=== PATIENT | male | born 1955 | race Caucasian/White ===

== ENCOUNTER → 2016-10-14 | Outpatient (CLI) | payer OTHER ==
[2016-10-14 09:50] LABS: Blood Urea Nitrogen 23 mg/dL (9-20); Non-African American GFR(MDRD) >60 (>60 ml/min/1.73 sqM)
--- NOTE | 2016-10-14 11:33 | CT ---
EXAMINATION TYPE: CT ChestAbdPelvis w con DATE OF EXAM: 10/14/2016 11:23 AM COMPARISON: NONE HISTORY: Lymphoma CT DLP: 1032.80 mGycm CONTRAST: CT scan of the chest, abdomen and pelvis is performed with Oral Contrast and with IV Contrast, patien t injected with 100 ml mL of Omnipaque 300. CT Chest: LUNGS: The lungs are clear and free of infiltrate or atelectasis. No pulmonary nodule or mass is det ected. No pleural effusion or CT evidence of interstitial lung disease. MEDIASTINUM: Thoracic aorta is of normal caliber. The heart is not enlarged. No evidence for media stinal mass or adenopathy. Stable subcentimeter lymph nodes identified within the mediastinum. HILAR STRUCTURES: No evidence for mass. No hilar adenopathy is appreciated. OTHER: Stable subcentimeter axillary lymph nodes. CONTRAST CT ABDOMEN AND PELVIS FINDINGS: LIVER/GB: No calcified gallstones. Fatty hepatic infiltration is again noted. No space occupying h epatic lesion. Biliary tree is of normal caliber. PANCREAS: No inflammation. No distinct mass. SPLEEN: No splenic enlargement. No lesion seen. ADRENALS: No nodule. No thickening. KIDNEYS/BLADDER: No hydronephrosis. No nephrolithiasis. Stable left renal cyst. Small stable right renal cyst. BOWEL: Normal appendix. Normal bowel caliber. No inflammation. GENITAL ORGANS: No gross abnormality. LYMPH NODES: Multiple small gastrohepatic ligament lymph nodes are noted as well as several small sub centimeter josh hepatis lymph nodes. AORTA: No significant abnormality. OSSEOUS STRUCTURES: Severe degenerative change lumbar spine. OTHER: Multiple peritoneal masses remain stable in overall size morphology and number. No new periton eal masses are identified with certainty. IMPRESSION: 1. Multiple peritoneal masses remain stable in overall size morphology and number. 2. Subcentimeter lymph nodes within the josh hepatis region, small bowel mesentery, gastrohepatic li gament, axillary regions and mediastinum appear unchanged as well. 3. Fatty liver. 4. Severe degenerative change lumbar spine.
== END | disposition home or self-care (01) ==
LOC: RADCTMAIN 08:57
PROVIDERS: ATTEND Internal Medicine Hematology & Oncology
DX: K76.0 Fatty (change of) liver, not elsewhere classified (principal); R19.09 Other intra-abdominal and pelvic swelling, mass and lump; C85.90 Non-Hodgkin lymphoma, unspecified, unspecified site
CPT/HCPCS: 82565; 84520; 71260; 74177; 36415; Q9967

== ENCOUNTER 2018-09-17 06:07 | Inpatient (IN) | payer MEDICARE, BC ==
[2018-09-17] MEDS ORDERED: IBUPROFEN 600 MG TAB PO STA (06:23)
[2018-09-17] MEDS ORDERED: ACETAMINOPHEN TAB 500 MG TAB PO STA (06:23)
[2018-09-17] MEDS: SODIUM CHLORIDE 0.9% 500 ML 500 ML IV SCH ×2 (06:30→07:14)
[2018-09-17] MEDS ORDERED: NALOXONE 0.4 MG/ML 1 ML VIAL IV PRN (06:40)
[2018-09-17] MEDS ORDERED: ONDANSETRON 4 MG/2 ML VIAL IVP PRN (06:52)
[2018-09-17 06:57] LABS: Albumin 4.6 g/dL (3.5-5.0); Basophils % (A) 0 %; Eosinophils % (A) 0 %; HCT 49.9 % (39.0-53.0); HGB 16.4 gm/dL (13.0-17.5); Lymphocytes # (A) 1.6 k/uL (1.0-4.8); Lymphocytes % (A) 16 %; MCH 30.7 pg (25.0-35.0); MCHC 32.9 g/dL (31.0-37.0); MCV 93.3 fL (80.0-100.0); Mean Platelet Volume 8.5; Monocytes # (A) 0.5 k/uL (0-1.0); Monocytes % (A) 5 %; Neutrophils # (A) 7.7 k/uL (1.3-7.7); Neutrophils % (A) 76 %; Platelet Count 204 k/uL (150-450); Potassium 4.7 mmol/L (3.5-5.1); RBC 5.35 m/uL (4.30-5.90); RDW 15.3 % (11.5-15.5); Total Bilirubin 0.6 mg/dL (0.2-1.3); Total Protein 7.6 g/dL (6.3-8.2); WBC 10.2 k/uL (3.8-10.6)
[2018-09-17] MEDS ORDERED: AZITHROMYCIN 500 MG in SODIUM CHLORIDE 0.9% 250 ML IVPB STA (06:59)
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
[2018-09-17 07:00] LABS: Partial Thromboplastin Time 22.7 sec (22.0-30.0)
[2018-09-17 07:11] LABS: Appearance,Urine Clear (Clear); Bilirubin,Urine Negative (Negative); Blood,Urine Negative (Negative); Color,Urine Yellow; Glucose,Urine (UA) Negative (Negative); Ketones,Urine Negative (Negative); Leukocyte Esterase,Urine Negative (Negative); Nitrite,Urine Negative (Negative); PH, Urine 5.5 (5.0-8.0); Protein,Urine Trace (Negative); Specific Gravity,Urine 1.021 (1.001-1.035); Urobilinogen,Urine <2.0 mg/dL (<2.0)
[2018-09-17] MEDS: SODIUM CHLORIDE 0.9% 1,000 ML IV SCH ×2 (07:25→17:22)
--- NOTE | 2018-09-17 08:05 | XR ---
EXAMINATION TYPE: XR chest 2V DATE OF EXAM: 09/17/2018 COMPARISON: 07/12/2013 HISTORY: Cough, fever and dizziness TECHNIQUE: Frontal and lateral views of the chest are obtained. FINDINGS: There is no focal air space opacity, pleural effusion, or pneumothorax seen. The cardiac silhouette size is within normal limits. The osseous structures are intact. [id number] multil evel degenerative disc disease is seen of the thoracic spine. Surgical clips are seen in the left upp er quadrant. IMPRESSION: No acute cardiopulmonary process.
[2018-09-17 09:52] VITALS: BMI 25.8
[2018-09-17] MEDS: FOLIC ACID 1 MG TAB PO SCH (12:34)
[2018-09-17] MEDS: LORATADINE 10 MG TAB PO SCH (12:35)
[2018-09-17] MEDS: CYANOCOBALAMIN 500 MCG TAB PO SCH (12:35)
[2018-09-17] MEDS: PREGABALIN 100 MG CAP PO SCH ×2 (12:35→19:53)
[2018-09-17] MEDS: PANTOPRAZOLE 40 MG TABLET PO SCH (12:35)
[2018-09-17] MEDS: SERTRALINE 100 MG TAB PO SCH (12:37)
[2018-09-17] MEDS ORDERED: MELATONIN 3 MG TABLET PO PRN (16:12)
[2018-09-17] MEDS ORDERED: ALPRAZolam 0.25 MG TAB PO PRN (16:12)
[2018-09-17] MEDS ORDERED: CALCIUM CARBONATE 500 MG CHEWABLE PO PRN (16:12)
[2018-09-17] MEDS ORDERED: LACTULOSE 20 GM/30 ML CUP PO PRN (16:12)
[2018-09-17] MEDS ORDERED: MAGNESIUM HYDROXIDE 2,400 MG/10 ML CUP PO PRN (16:12)
[2018-09-17] MEDS: IPRATROPIUM-ALBUTEROL 3 ML NEB INHALATION SCH ×2 (16:16→20:13)
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
[2018-09-17] MEDS: PIPERACILLIN-TAZOBACTAM 3.375 GM in SODIUM CHLORIDE 0.9% 100 ML IVPB SCH ×2 (17:21→23:14)
[2018-09-17] MEDS: FENOFIBRATE 160 MG TAB PO SCH (17:22)
[2018-09-17] MEDS: ENOXAPARIN 40 MG/0.4 ML SYRINGE SQ SCH (17:28)
[2018-09-17] MEDS: ACETAMINOPHEN TAB 325 MG TAB PO PRN (18:57)
[2018-09-17] MEDS: IBUPROFEN 400 MG TAB PO PRN (19:53)
[2018-09-17] MEDS: ATORVASTATIN 20 MG TAB PO SCH (19:53)
[2018-09-18] MEDS: SODIUM CHLORIDE 0.9% 1,000 ML IV SCH ×2 (02:24→12:21)
[2018-09-18] MEDS: PIPERACILLIN-TAZOBACTAM 3.375 GM in SODIUM CHLORIDE 0.9% 100 ML IVPB SCH ×2 (07:22→15:37)
[2018-09-18] MEDS: PANTOPRAZOLE 40 MG TABLET PO SCH (07:23)
[2018-09-18] MEDS: PREGABALIN 100 MG CAP PO SCH ×2 (08:40→20:32)
[2018-09-18] MEDS: LORATADINE 10 MG TAB PO SCH (08:40)
[2018-09-18] MEDS: ENOXAPARIN 40 MG/0.4 ML SYRINGE SQ SCH (08:40)
[2018-09-18] MEDS: SERTRALINE 100 MG TAB PO SCH (08:40)
[2018-09-18] MEDS: IPRATROPIUM-ALBUTEROL 3 ML NEB INHALATION SCH ×3 (09:39→20:12)
[2018-09-18] MEDS: FOLIC ACID 1 MG TAB PO SCH (11:06)
[2018-09-18] MEDS: MULTIVITAMINS, THERA 1 EACH TAB PO SCH (11:06)
[2018-09-18] MEDS: CHOLECALCIFEROL 1,000 UNIT TAB PO SCH (11:06)
[2018-09-18] MEDS: CYANOCOBALAMIN 500 MCG TAB PO SCH (11:06)
[2018-09-18] MEDS: IBUPROFEN 400 MG TAB PO PRN (14:28)
[2018-09-18] MEDS: FENOFIBRATE 160 MG TAB PO SCH (17:05)
[2018-09-18] MEDS: ACETAMINOPHEN TAB 325 MG TAB PO PRN (17:05)
[2018-09-18] MEDS: ATORVASTATIN 20 MG TAB PO SCH (20:32)
--- NOTE | 2018-09-18 22:55 | PN ---
PROGRESS NOTE DATE OF SERVICE: September 18, 2018. PRESENTING COMPLAINT: Cough. INTERVAL HISTORY: This patient with a few medical issues presented with sepsis with pneumonia. Feels more chirpy today, better. Less congested, less cough. Did tolerate a diet. Did spike a fever this afternoon, though. Family is present including his and son. REVIEW OF SYSTEMS: Done for constitutional, cardiovascular, GI, pulmonary; relevant findings as above. CURRENT MEDICATIONS: Reviewed that include IV Zosyn. EXAMINATION: VITAL SIGNS: T-Max 101, pulse 72, respiration 16, blood pressure 100/64, pulse ox 96 percent room air. GENERAL APPEARANCE: Sitting up, awake. EYES: Pupils equal. Conjunctivae normal. NECK: JVD not raised. Mass not palpable. RESPIRATORY: Effort increased. LUNGS: Improved air entry. CARDIOVASCULAR: First and second sounds normal. No edema. ABDOMEN: Soft, nontender. Liver and spleen not palpable. PSYCHIATRY: Alert and oriented x3. Mood and affect normal. INVESTIGATIONS: No blood work from today. Cultures pending. ASSESSMENT: 1. Pneumonia in a patient with sepsis picture with clinical response. 2. Gastroesophageal reflux disease. 3. Hyperlipidemia. 4. Chronic rheumatoid arthritis. 5. Chronic lymphocytic leukemia. PLAN: Continue with IV Zosyn. I did check with the patient's . He does get the Pneumovax shot and also gets the flu shot. Encouraged to ambulate. MMODL / IJN: [id number] /
[2018-09-19] MEDS: SODIUM CHLORIDE 0.9% 1,000 ML IV SCH ×3 (00:22→20:23)
[2018-09-19] MEDS: PIPERACILLIN-TAZOBACTAM 3.375 GM in SODIUM CHLORIDE 0.9% 100 ML IVPB SCH ×4 (00:22→23:25)
[2018-09-19] MEDS: PANTOPRAZOLE 40 MG TABLET PO SCH (07:18)
[2018-09-19 07:40] LABS: Anisocytosis Slight; Basophils % (A) 0 %; Eosinophils # (A) 0.2 k/uL (0-0.7); Eosinophils % (A) 2 %; HCT 40.6 % (39.0-53.0); Lymphocytes # (A) 2.3 k/uL (1.0-4.8); Lymphocytes % (A) 29 %; MCH 30.3 pg (25.0-35.0); MCHC 32.5 g/dL (31.0-37.0); MCV 93.2 fL (80.0-100.0); Mean Platelet Volume 8.5; Monocytes # (A) 0.5 k/uL (0-1.0); Monocytes % (A) 6 %; Neutrophils # (A) 4.7 k/uL (1.3-7.7); Neutrophils % (A) 60 %; Platelet Count 182 k/uL (150-450); RBC 4.36 m/uL (4.30-5.90); RDW 16.4 % (11.5-15.5)
[2018-09-19 07:48] LABS: HGB 13.2 gm/dL (13.0-17.5)
[2018-09-19 08:11] LABS: Anion Gap 8 mmol/L; Blood Urea Nitrogen 14 mg/dL (9-20); Calcium 8.9 mg/dL (8.4-10.2); Carbon Dioxide 27 mmol/L (22-30); Chloride 107 mmol/L (98-107); Glucose 88 mg/dL (74-99); Sodium 142 mmol/L (137-145)
[2018-09-19] MEDS: IPRATROPIUM-ALBUTEROL 3 ML NEB INHALATION SCH ×3 (08:15→21:16)
[2018-09-19] MEDS: PREGABALIN 100 MG CAP PO SCH ×2 (08:25→20:23)
[2018-09-19] MEDS: LORATADINE 10 MG TAB PO SCH (08:25)
[2018-09-19] MEDS: SERTRALINE 100 MG TAB PO SCH (08:25)
[2018-09-19] MEDS: ENOXAPARIN 40 MG/0.4 ML SYRINGE SQ SCH (08:25)
[2018-09-19] MEDS: MULTIVITAMINS, THERA 1 EACH TAB PO SCH (11:29)
[2018-09-19] MEDS: CHOLECALCIFEROL 1,000 UNIT TAB PO SCH (11:29)
[2018-09-19] MEDS: CYANOCOBALAMIN 500 MCG TAB PO SCH (11:29)
[2018-09-19] MEDS: FOLIC ACID 1 MG TAB PO SCH (11:29)
[2018-09-19] MEDS: FENOFIBRATE 160 MG TAB PO SCH (17:03)
[2018-09-19] MEDS: ATORVASTATIN 20 MG TAB PO SCH (20:23)
[2018-09-19] MEDS: ACETAMINOPHEN TAB 325 MG TAB PO PRN (20:25)
[2018-09-20] MEDS: SODIUM CHLORIDE 0.9% 1,000 ML IV SCH ×2 (03:29→16:20)
--- NOTE | 2018-09-20 04:41 | PN ---
PROGRESS NOTE DATE OF SERVICE: 09/19/2018 PRESENTING COMPLAINT: Tired. INTERVAL HISTORY: This patient presented with pneumonia and sepsis, doing much better, tolerating a diet. Did have a fever yesterday but none today. Has been out of bed. is present. REVIEW OF SYSTEMS: Done for constitutional, cardiovascular, GI, pulmonary; relevant findings as above. CURRENT MEDICATIONS: Reviewed and include IV Zosyn. PHYSICAL EXAMINATION: VITAL SIGNS: On examination, afebrile today. Pulse 69, respiration 16, blood pressure 109/66. Pulse ox 95% on room air. GENERAL APPEARANCE: Sitting up, comfortable. EYES: Pupils equal. Conjunctivae normal. NECK: JVD not raised. Mass not palpable. RESPIRATORY: Effort normal. LUNGS: Fair air entry. CARDIOVASCULAR: First and second sounds normal. No edema. ABDOMEN: Soft, nontender. Liver and spleen not palpable. PSYCHIATRY: Alert and oriented times three. Mood and affect normal. INVESTIGATIONS: White count 18, hemoglobin 13.2. Sputum cultures are pending. ASSESSMENT: 1. Pneumonia in a patient with sepsis picture, suspect gram-negative with good clinical response. Awaiting cultures. 2. Gastroesophageal reflux disease. 3. Hyperlipidemia. 4. Chronic rheumatoid arthritis. 5. Chronic lymphocytic leukemia. 6. Asplenism. PLAN: Care was discussed with the patient and . Await culture results. Hoping patient can be discharged by tomorrow. MMODL / IJN: [id number] /
[2018-09-20] MEDS: IPRATROPIUM-ALBUTEROL 3 ML NEB INHALATION SCH ×2 (07:20→15:54)
[2018-09-20 07:55] LABS: Anion Gap 7 mmol/L; Blood Urea Nitrogen 11 mg/dL (9-20); Calcium 9.6 mg/dL (8.4-10.2); Carbon Dioxide 30 mmol/L (22-30); Chloride 106 mmol/L (98-107); Glucose 95 mg/dL (74-99); Potassium 4.1 mmol/L (3.5-5.1); Sodium 143 mmol/L (137-145)
[2018-09-20] MEDS: PIPERACILLIN-TAZOBACTAM 3.375 GM in SODIUM CHLORIDE 0.9% 100 ML IVPB SCH ×2 (08:37→16:20)
[2018-09-20] MEDS: PREGABALIN 100 MG CAP PO SCH (08:38)
[2018-09-20] MEDS: ENOXAPARIN 40 MG/0.4 ML SYRINGE SQ SCH (08:38)
[2018-09-20] MEDS: PANTOPRAZOLE 40 MG TABLET PO SCH (08:38)
[2018-09-20] MEDS: SERTRALINE 100 MG TAB PO SCH (08:39)
[2018-09-20] MEDS: MULTIVITAMINS, THERA 1 EACH TAB PO SCH (08:39)
[2018-09-20] MEDS: FOLIC ACID 1 MG TAB PO SCH (08:39)
[2018-09-20] MEDS: LORATADINE 10 MG TAB PO SCH (08:39)
[2018-09-20] MEDS: CHOLECALCIFEROL 1,000 UNIT TAB PO SCH (08:39)
[2018-09-20] MEDS: CYANOCOBALAMIN 500 MCG TAB PO SCH (08:39)
[2018-09-20 14:41] VITALS: BP 125/74; PULSE 74; TEMP 98.5
[2018-09-20 15:48] VITALS: RESP 16
[2018-09-20] MEDS: FENOFIBRATE 160 MG TAB PO SCH (16:20)
[2018-09-20] MEDS ORDERED: FLUCONAZOLE 100 MG TAB PO ONE (16:23)
--- NOTE | 2018-09-21 05:32 | DS ---
DISCHARGE SUMMARY DATE OF ADMISSION: 09/17/2018 DATE OF DISCHARGE: 09/20/2018 FINAL DIAGNOSES: 1. Pneumonia with sepsis, suspect gram-negative organism, POA. 2. Gastroesophageal reflux disease. 3. Hyperlipidemia. 4. Chronic rheumatoid arthritis. 5. Chronic lymphocytic leukemia. 6. Asplenism. HOSPITAL COURSE: This patient presented with cough, shortness of breath and sputum. Patient's Gram stain did show some Lisa. The patient responded well to IV Zosyn, switched over to Augmentin and for coverage we will also give some Diflucan. Care was discussed with the patient and . The patient does get all his immunizations including for flu and pneumococcal through his family doctor. On examination, temperature 98.5, pulse 74, respirations 17, blood pressure 125/74, pulse ox 97% on room air. LUNGS: Improved air entry. DISCHARGE MEDICATIONS: 1. Vitamin D3, 2000 units a day. 2. Vitamin B12, 500 mcg a day. 3. Folic acid 1 mg a day. 4. Lopid 600 mg b.i.d. 5. Xyzal 5 mg p.o. daily. 6. Methotrexate 15 mg starting on Thursday. 7. Men's multivitamin 1 tablet p.o. daily. 8. Fish oil 1 capsule p.o. daily. 9. Omeprazole 20 mg p.o. daily. 10.Lyrica 100 mg p.o. b.i.d. 11.Zoloft 100 mg p.o. daily. 12.Zocor 40 mg q.h.s. 13.Turmeric supplement. 14.Augmentin 875 one tablet p.o. q.12, ten tablets. 15.Diflucan 100 mg p.o. daily, 5 tablets. 16.Melatonin 3 mg p.o. q.h.s. p.r.n. Follow up with Dr. Aaron on 09/22/2018. MMODL / IJN: [id number] /
== END 2018-09-20 17:26 | disposition home or self-care (01) | DRG 871 ==
LOC: EC 06:07 → 3NMEDONC 06:40 → 4SSUR 11:42 → 4MS4W 09-20 12:32
PROVIDERS: ADMIT Hospitalist; ATTEND Hospitalist
DX: A41.50 Gram-negative sepsis, unspecified (principal); J15.6 Pneumonia due to other Gram-negative bacteria; C91.10 Chronic lymphocytic leukemia of B-cell type not having achieved remission; B02.9 Zoster without complications; M06.9 Rheumatoid arthritis, unspecified; K21.9 Gastro-esophageal reflux disease without esophagitis; E78.5 Hyperlipidemia, unspecified; Z79.899 Other long term (current) drug therapy; Z90.81 Acquired absence of spleen; Z91.81 History of falling; Z87.891 Personal history of nicotine dependence
CPT/HCPCS: 36415; 71046; 80048; 80053; 81003; 83605; 84484; 85025; 85610; 85730; 87040; 87070; 87086; 87205; 93005; 94640; 94760; 96365; 96367; 99284

== ENCOUNTER → 2018-11-17 | Outpatient (CLI) | payer MEDICARE, BC ==
[2018-11-17 10:50] LABS: African American GFR (CKD) >90 (>60 ml/min/1.73 sqM); Blood Urea Nitrogen 17 mg/dL (9-20)
--- NOTE | 2018-11-17 15:20 | CT ---
EXAMINATION TYPE: CT ChestAbdPelvis w con DATE OF EXAM: 11/17/2018 COMPARISON: 10/14/2016 HISTORY: 63-year-old male lymphoid leukemia, Follow up scan TECHNIQUE: Contiguous axial scanning of the chest, abdomen, and pelvis performed with IV Contrast, pa tient injected with 100 mL of Isovue 300. Delayed images through the kidneys were obtained. Coronal/s agittal reconstructions performed. CT DLP: 1238 mGycm Automated exposure control for dose reduction was used. FINDINGS: CHEST: Heart normal size without pericardial effusion. Coronary vessel calcifications are present. Aorta normal caliber with conventional arch vessel branching anatomy. Borderline enlarged right tracheobronchial angle lymph node measures 1 cm versus 9 mm, previously. Upper right paratracheal lymph node measures 7 mm versus 5 mm, previously. Bilateral axillary lymph nodes. 8 mm right subpectoral lymph node is new. Right axillary lymph node measures up to 1 cm versus 7 mm, previously. Left subpectoral lymph node measures 1.3 cm versus 9 mm, previously. Left axillary lymph nodes measure up to 1.3 cm versus 1.1 cm, previously No consolidation or pleural effusion. ABDOMEN: No focal liver lesion or biliary ductal dilatation. Portal venous system is patent. Gallbladder, adrenal glands, and spleen appear within normal limits. Luna hepatic lymph node measures up to 1.3 cm versus 9 mm, present previously. Aortocaval lymph node measures 1 cm, unchanged. Gastrohepatic ligament lymph node measures 9 mm versus 7 mm, previously Portacaval lymph node measures 2.2 cm versus 1.8 cm, previously. Scattered mesenteric lymph nodes are present, many of which are nonenlarged but others which are mild ly enlarged. On the right, and measures 1.1 cm versus 9 mm, previously. In the mid abdomen, a continu ous cluster measures up to 2.3 x 1.3 cm and has increased in thickness compared to prior exam. On the right common iliac chain, lymph node measures 1.3 cm versus 6 mm, previously. No dilated small bowel, free fluid, or free air. Mild overall stool burden with sigmoid diverticulosis. No pericolonic inflammatory change. There multiple areas of lobulated soft tissue density, greatest in the left upper quadrant measuring up to 5.0 cm. Dominant lobulated soft tissue mass is located along the anterior right paramedian mid abdomen measuring 4.9 cm. Findings suspected to represent osteolytic splenules. Nonobstructive 4 mm right renal calculus. Stable 1.2 cm cyst posterior right kidney. A couple cysts within the left kidney measure up to 3.0 cm . Pelvis: Bladder urine distended. Prostate gland shows hypertrophy of the median lobe impressing into the post erior bladder base. The prostate gland itself measures 4.6 cm wide. No abnormal fluid collection in t he pelvis. Right external iliac chain lymph node measures 1.5 cm versus 1.2 cm, previously. Left external iliac chain lymph node measures 1.0 cm versus 7 mm, previously. Bones: Mild degenerative changes at the hips. Laminectomy changes lower lumbar spine with facet arthropathy and degenerative disc disease throughout the lumbar spine. Grade 1 retrolisthesis at L1-L2, L2-L3, L3 -L4. There is suggestion of a 5.5 x 2.1 x 1.8 cm fluid collection along the laminectomy bed opposite L4 and L5. Endplate spondylosis visualized lower thoracic and lower cervical spine. IMPRESSION: 1. AXILLARY, MEDIASTINAL, UPPER ABDOMINAL , MESENTERIC , RETROPERITONEAL , AND ILIAC CHAIN LYMPH NODE S. THESE LYMPH NODES ARE EITHER NONENLARGED TO BORDERLINE AND MILDLY ENLARGED. THE MAJORITY OF THESE LYMPH NODES SHOW INCREASING SIZE BY UP TO HALF A CENTIMETER. OVERALL SLOW DISEASE PROGRESSION IS SUGG ESTED. 2. MULTIPLE LOBULATED SOFT TISSUE MASSES LOCATED ANTERIORLY IN THE ABDOMEN AND MOST NUMEROUS FOCI IN THE LEFT UPPER QUADRANT. SUSPECT POSTERIOR MEDICAL SPLENULES. 3. MEDIAN LOBE HYPERTROPHY OF THE PROSTATE GLAND. CORRELATE FOR ANY BPH SYMPTOMS. 4. L4-L5 LAMINECTOMY WITH A 5.5 X 2.1 CM FLUID COLLECTION INTERPOSED IN THE LAMINECTOMY BED. POSTOPER ATIVE SEROMA, HEMATOMA, OR OTHER FLUID COLLECTION ARE IN THE DIFFERENTIAL. CLINICALLY CORRELATE.
== END | disposition home or self-care (01) ==
LOC: RADCTMAIN 10:12
PROVIDERS: ATTEND Family Medicine
DX: C91.90 Lymphoid leukemia, unspecified not having achieved remission (principal); N40.0 Benign prostatic hyperplasia without lower urinary tract symptoms; R19.00 Intra-abdominal and pelvic swelling, mass and lump, unspecified site
CPT/HCPCS: 82565; 84520; 71260; 74177; 36415; Q9967

== ENCOUNTER → 2020-06-27 | Outpatient (CLI) | payer MEDICARE, BC ==
--- NOTE | 2020-06-27 14:25 | CT ---
EXAMINATION TYPE: CT angio chest DATE OF EXAM: 06/27/2020 2:11 PM COMPARISON: CT November 17, 2018 HISTORY: elevated d-dimer, episodic difficulty breathing CT DLP: 487 mGycm Automated exposure control for dose reduction was used. CONTRAST: CTA scan of the thorax is performed with IV Contrast, patient injected with 100 mL of Isovue 370, pul monary embolism protocol. MIP images are created and reviewed. FINDINGS: LUNGS: Focal chronic consolidation and/or atelectasis posterior medial right lower lobe adjacent to s purring in the spine. No new suspicious focal consolidation. No pleural effusion or pneumothorax. No concerning nodules or masses. MEDIASTINUM: There is satisfactory enhancement of the pulmonary artery and its branches, there is no CT evidence for pulmonary embolism. Stable slightly enlarged right tracheobronchial 1.4 x 1.2 cm le ft axial image 63. Stable prominent but subcentimeter left axillary lymph nodes. There is enlarging r ight paratracheal 1.8 x 1.3 cm lymph node on axial image 33. There is enlarging 1.9 x 1.4 cm distal r ight tracheal bronchial lymph node axial image 72. No pericardial effusion is seen. OTHER: Surgical clips left upper quadrant was sterilely redemonstrated. Moderate multilevel spurring in the spine again seen. Stable prominent right axillary lymph nodes. IMPRESSION: 1. No CT evidence for acute pulmonary embolism. 2. No acute pulmonary process. 3. Some enlarging thoracic adenopathy noted as detailed above. Recurrent neoplasm or leukemia needs t o be considered. Nonemergent follow-up advised.
== END | disposition home or self-care (01) ==
LOC: RADCTMAIN 13:00
PROVIDERS: ATTEND Nurse Practitioner Family
DX: R59.0 Localized enlarged lymph nodes (principal)
CPT/HCPCS: 71275; Q9967

== ENCOUNTER → 2020-11-16 | Outpatient (CLI) | payer MEDICARE, BC ==
--- NOTE | 2020-11-18 07:10 | PE ---
EXAMINATION TYPE: PET CT fusion skull to thigh DATE OF EXAM: 11/16/2020 COMPARISON: CTA chest June 27, 2020 and older CTs HISTORY: Solitary pulmonary nodule, abnormal CT. TECHNIQUE: Following the intravenous administration of 10.79 mCi of F-18 FDG, whole body images are performed from the skull base to the midthigh. Images are reviewed on the computer in the coronal, a xial, and sagittal planes. Reconstructed rotating images are created on independent workstation and reviewed on the computer. A localization and attenuation correction CT is performed in conjunction with the PET scan. Blood glucose level equals 92. SCAN: Initial Scan FINDINGS: SKULL BASE AND NECK: No suspicious hypermetabolic uptake. CHEST, MEDIASTINUM, AND HILAR REGION: Mild underlying emphysematous change is redemonstrated. Stable chronic consolidation posterior medial right lower lobe adjacent to the spine near axial image 104. N o abnormal hypermetabolic uptake at this level No suspicious hypermetabolic uptake throughout entire thorax. No suspicious greater than 5 mm pulmonary nodules. ABDOMEN AND PELVIS: No suspicious hypermetabolic uptake. Normal excretion identified. OSSEOUS STRUCTURES: No suspicious hypermetabolic uptake. OTHER CT: Prominent bilateral axillary lymph nodes stable from multiple prior studies. Moderate to se kaveh three-vessel coronary artery calcification. Surgical clips left upper quadrant posteriorly redemonstrated. Residual splenosis. Fatty infiltratio n of the visualized liver. Partially exophytic 3.1 cm thin-walled cyst posteriorly upper pole left ki dney. Exophytic 1.5 cm low dense lesion right kidney posteriorly favoring thin-walled cyst. Adjacent 3 mm nonobstructing calculus redemonstrated. Stable anterior 5.4 x 4.1 cm right upper to mid abdominal soft tissue mass image 150 with biopsy clip centrally unchanged from 2015 study is ametabolic. Correlate clinically. Adjacent ventral wall herni a containing fat and tiny mesenteric vessels in the midline. Diverticula throughout the left and sigm oid colon redemonstrated. Enlarged prostate consistent with BPH. Multilevel spurring in the spine. Expansile spinal canal posteriorly lower lumbar spine. Multilevel d isc space narrowing. Prominent anterior spurring in the cervical spine. IMPRESSION: No suspicious hypermetabolic uptake to suggest active malignancy.
== END | disposition home or self-care (01) ==
LOC: RADPETMAIN 07:24
PROVIDERS: ATTEND Internal Medicine Critical Care Medicine
DX: J98.4 Other disorders of lung (principal); K76.0 Fatty (change of) liver, not elsewhere classified; N28.1 Cyst of kidney, acquired; N20.0 Calculus of kidney; K43.9 Ventral hernia without obstruction or gangrene
CPT/HCPCS: 78815; A9552

== ENCOUNTER 2021-02-11 22:12 | Emergency (ER) | payer MEDICARE, BC ==
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
[2021-02-11 22:52] LABS: Basophils # (A) 0.1 k/uL (0-0.2); Basophils % (A) 0 %; Eosinophils # (A) 0.3 k/uL (0-0.7); Eosinophils % (A) 3 %; HCT 45.6 % (39.0-53.0); HGB 15.4 gm/dL (13.0-17.5); Lymphocytes # (A) 3.4 k/uL (1.0-4.8); Lymphocytes % (A) 32 %; MCH 32.6 pg (25.0-35.0); MCHC 33.8 g/dL (31.0-37.0); MCV 96.6 fL (80.0-100.0); Mean Platelet Volume 8.7; Monocytes # (A) 0.8 k/uL (0-1.0); Monocytes % (A) 7 %; Neutrophils # (A) 5.8 k/uL (1.3-7.7); Neutrophils % (A) 54 %; Platelet Count 177 k/uL (150-450); RBC 4.72 m/uL (4.30-5.90); RDW 14.1 % (11.5-15.5); WBC 10.6 k/uL (3.8-10.6)
--- NOTE | 2021-02-11 22:59 | XR ---
EXAMINATION TYPE: XR chest 1V portable DATE OF EXAM: 02/11/2021 COMPARISON: 09/17/2018 HISTORY: Cough and fever pneumonia. TECHNIQUE: Single view FINDINGS: Heart and mediastinum are normal. Lungs are clear of infiltrate. There is no heart failure. There are no hilar masses. Bony thorax is intact. IMPRESSION: No active cardiopulmonary disease. Normal heart. No change.
[2021-02-11 23:06] LABS: INR 0.9 (<1.2); Prothrombin Time 9.8 sec (9.0-12.0)
[2021-02-11 23:17] LABS: ALT 14 U/L (4-49); AST 25 U/L (17-59); African American GFR (CKD) >90 (>60 ml/min/1.73 sqM); Albumin 4.1 g/dL (3.5-5.0); Alkaline Phosphatase 105 U/L (38-126); Anion Gap 9 mmol/L; Blood Urea Nitrogen 15 mg/dL (9-20); Calcium 9.5 mg/dL (8.4-10.2); Carbon Dioxide 24 mmol/L (22-30); Chloride 105 mmol/L (98-107); Glucose 108 mg/dL (74-99); LDH 480 U/L (313-618); Magnesium 1.9 mg/dL (1.6-2.3); Non-African American GFR(CKD) >90 (>60 ml/min/1.73 sqM); Potassium 4.4 mmol/L (3.5-5.1); Sodium 138 mmol/L (137-145); Total Bilirubin 0.5 mg/dL (0.2-1.3)
[2021-02-11] MEDS ORDERED: IBUPROFEN 800 MG TAB PO STA (23:20)
[2021-02-11] MEDS ORDERED: SODIUM CHLORIDE 0.9% 1,000 ML IV ONE (23:20)
[2021-02-12 00:10] LABS: Appearance,Urine Clear (Clear); Bilirubin,Urine Negative (Negative); Blood,Urine Negative (Negative); Color,Urine Yellow; Glucose,Urine (UA) Negative (Negative); Ketones,Urine Negative (Negative); Leukocyte Esterase,Urine Negative (Negative); Nitrite,Urine Negative (Negative); Protein,Urine Negative (Negative); Specific Gravity,Urine 1.032 (1.001-1.035)
[2021-02-12] MEDS ORDERED: cefTRIAXone IN SWFI 1,000 MG/10 ML SYRINGE IVP STA (00:30)
[2021-02-12] MEDS ORDERED: AZITHROMYCIN 500 MG in SODIUM CHLORIDE 0.9% 250 ML IVPB ONE (00:30)
[2021-02-12] MEDS ORDERED: CEPHALEXIN 500 MG CAP PO STA (01:36)
[2021-02-12] MEDS ORDERED: CEPHALEXIN 500MG STARTER PACK 4 CAP BTL PO STA (01:38)
[2021-02-12 02:55] VITALS: BP 107/60; PULSE 63; RESP 16; TEMP 98.8
== END 2021-02-12 02:55 | disposition home or self-care (01) ==
LOC: EC 22:12
DX: R50.9 Fever, unspecified (principal); K21.9 Gastro-esophageal reflux disease without esophagitis; E78.5 Hyperlipidemia, unspecified; M06.9 Rheumatoid arthritis, unspecified; Z20.822 Contact with and (suspected) exposure to COVID-19; Z87.891 Personal history of nicotine dependence; Z90.81 Acquired absence of spleen
CPT/HCPCS: 99284; 96365; 96375; 96361; 36415; 93005; 80053; 82728; 83605; 83615; 83735; 85025; 85610; 85730; 86140; 81003; 87040; 84145; 87635; 71045; J0456; J0696

== ENCOUNTER 2022-01-03 19:45 | Inpatient (IN) | payer MEDICARE, BC ==
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
[2022-01-03] MEDS ORDERED: SODIUM CHLORIDE 0.9% 1,000 ML IV STA (21:24)
--- NOTE | 2022-01-03 21:43 | XR ---
EXAMINATION TYPE: XR chest 2V DATE OF EXAM: 01/03/2022 COMPARISON: NONE HISTORY: Cough and fever TECHNIQUE: 2 view FINDINGS: Heart and mediastinum are normal. Lungs are clear. Diaphragm is normal. Bony thorax appears normal. IMPRESSION: Normal chest.
[2022-01-03 22:26] LABS: HCT 48.4 % (39.0-53.0); HGB 15.6 gm/dL (13.0-17.5); MCH 30.8 pg (25.0-35.0); MCHC 32.3 g/dL (31.0-37.0); MCV 95.5 fL (80.0-100.0); Mean Platelet Volume 8.9; Platelet Count 155 k/uL (150-450); RBC 5.07 m/uL (4.30-5.90); RDW 14.9 % (11.5-15.5); WBC 24.6 k/uL (3.8-10.6)
[2022-01-03 22:38] LABS: Albumin 4.4 g/dL (3.5-5.0); Potassium 4.4 mmol/L (3.5-5.1); Total Bilirubin 0.6 mg/dL (0.2-1.3); Total Protein 7.1 g/dL (6.3-8.2)
[2022-01-03 22:57] LABS: Band Neutrophils % 1 %; Lymphocytes # (M) 13.78 k/uL (1.0-4.8); Monocytes # (M) 1.23 k/uL (0-1.0); Neutrophils % (M) 38 %; Nucleated Red Blood Cells 0 /100 WBC (0-0); Reactive Lymphocytes Present; Total Cells Counted 100
[2022-01-03 23:04] LABS: RBC Morphology Normal
[2022-01-03] MEDS ORDERED: PNEUMONIA PROTOCOL UTILIZED 1 EACH MISC PO PRN (23:16)
[2022-01-03] MEDS ORDERED: SODIUM CHLORIDE 0.9% 1,000 ML IV ONE (23:22)
[2022-01-03] MEDS ORDERED: AZITHROMYCIN 500 MG in SODIUM CHLORIDE 0.9% 250 ML IVPB ONE (23:30)
[2022-01-03] MEDS ORDERED: SODIUM CHLORIDE 0.9% 1,000 ML IV SCH (23:30)
[2022-01-03] MEDS: ACETAMINOPHEN TAB 325 MG TAB PO PRN (23:41)
[2022-01-03] MEDS: HEPARIN SODIUM,PORCINE/PF 5,000 UNIT/0.5 ML SYRINGE SQ SCH (23:42)
[2022-01-04 00:13] LABS: Appearance,Urine Clear (Clear); Bilirubin,Urine Negative (Negative); Blood,Urine Small (Negative); Color,Urine Yellow; Glucose,Urine (UA) Negative (Negative); Ketones,Urine Negative (Negative); Leukocyte Esterase,Urine Negative (Negative); Mucus,Urine Few /hpf; Nitrite,Urine Negative (Negative); Protein,Urine Negative (Negative); RBC,Urine 2 /hpf (0-5); Specific Gravity,Urine 1.023 (1.001-1.035); Squamous Epithelial Cell,Urine <1 /hpf (0-4); Urobilinogen,Urine <2.0 mg/dL (<2.0); WBC,Urine 3 /hpf (0-5)
[2022-01-04] MEDS ORDERED: IPRATROPIUM-ALBUTEROL 3 ML NEB INHALATION STA (02:23)
[2022-01-04] MEDS: SODIUM CHLORIDE 0.9% 1,000 ML IV SCH ×2 (03:40→06:26)
[2022-01-04] MEDS: IPRATROPIUM-ALBUTEROL 3 ML NEB INHALATION PRN ×2 (08:37→11:49)
[2022-01-04] MEDS: ACETAMINOPHEN TAB 325 MG TAB PO PRN (08:59)
[2022-01-04] MEDS: HEPARIN SODIUM,PORCINE/PF 5,000 UNIT/0.5 ML SYRINGE SQ SCH (08:59)
[2022-01-04] MEDS ORDERED: AZITHROMYCIN 500 MG TAB PO SCH (09:00)
[2022-01-04] MEDS ORDERED: ALBUTEROL NEBULIZED 2.5 MG/3 ML INHALATION PRN (09:21)
[2022-01-04] MEDS: FLUTICASONE 50MCG/SPRAY NASAL 16GM EA NOSTRIL SCH (10:45)
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
[2022-01-04] MEDS: PREGABALIN 100 MG CAP PO SCH ×2 (12:19→20:05)
[2022-01-04] MEDS: SERTRALINE 100 MG TAB PO SCH (12:19)
[2022-01-04] MEDS: CIPROFLOXACIN HCL 500 MG TAB PO SCH ×2 (14:27→20:05)
[2022-01-04] MEDS: LACTATED RINGERS 1,000 ML IV SCH ×2 (14:27→20:05)
[2022-01-04] MEDS: metroNIDAZOLE 500 MG TAB PO SCH ×3 (14:27→21:06)
[2022-01-04] MEDS: ENOXAPARIN 40 MG/0.4 ML SYRINGE SQ SCH (15:55)
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
[2022-01-04] MEDS: MAGNESIUM OXIDE 400 MG TAB PO SCH (20:05)
[2022-01-04] MEDS: ATORVASTATIN 20 MG TAB PO SCH (20:05)
[2022-01-04] MEDS: SYMBICORT 160-4.5 MCG INHALER INHALATION SCH (21:03)
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
[2022-01-05] MEDS: LACTATED RINGERS 1,000 ML IV SCH ×3 (05:22→20:26)
[2022-01-05 07:56] LABS: Basophils # (A) 0.1 k/uL (0-0.2); Basophils % (A) 1 %; Eosinophils # (A) 0.2 k/uL (0-0.7); Eosinophils % (A) 1 %; HCT 44.8 % (39.0-53.0); HGB 14.1 gm/dL (13.0-17.5); Lymphocytes # (A) 11.3 k/uL (1.0-4.8); Lymphocytes % (A) 57 %; MCH 30.7 pg (25.0-35.0); MCHC 31.5 g/dL (31.0-37.0); MCV 97.3 fL (80.0-100.0); Monocytes # (A) 0.7 k/uL (0-1.0); Monocytes % (A) 3 %; Neutrophils # (A) 7.2 k/uL (1.3-7.7); Neutrophils % (A) 36 %; Platelet Count 129 k/uL (150-450); RDW 15.1 % (11.5-15.5)
[2022-01-05 08:08] LABS: African American GFR (CKD) >90 (>60 ml/min/1.73 sqM); Anion Gap 5 mmol/L; Blood Urea Nitrogen 11 mg/dL (9-20); Calcium 8.7 mg/dL (8.4-10.2); Carbon Dioxide 25 mmol/L (22-30); Chloride 108 mmol/L (98-107); Glucose 116 mg/dL (74-99); Non-African American GFR(CKD) 89 (>60 ml/min/1.73 sqM); Potassium 3.9 mmol/L (3.5-5.1); Sodium 138 mmol/L (137-145)
[2022-01-05] MEDS: IPRATROPIUM-ALBUTEROL 3 ML NEB INHALATION PRN ×2 (08:17→11:44)
[2022-01-05] MEDS: SYMBICORT 160-4.5 MCG INHALER INHALATION SCH ×2 (08:17→20:44)
[2022-01-05] MEDS: LORATADINE 10 MG TAB PO SCH (08:55)
[2022-01-05] MEDS: metroNIDAZOLE 500 MG TAB PO SCH ×4 (08:55→21:42)
[2022-01-05] MEDS: ENOXAPARIN 40 MG/0.4 ML SYRINGE SQ SCH (08:55)
[2022-01-05] MEDS: PREGABALIN 100 MG CAP PO SCH ×2 (08:56→20:26)
[2022-01-05] MEDS: CIPROFLOXACIN HCL 500 MG TAB PO SCH ×2 (08:56→20:25)
[2022-01-05] MEDS: FOLIC ACID 1 MG TAB PO SCH (08:56)
[2022-01-05] MEDS: SERTRALINE 100 MG TAB PO SCH (08:56)
[2022-01-05] MEDS: PANTOPRAZOLE 40 MG TABLET PO SCH (08:56)
[2022-01-05] MEDS: FLUTICASONE 50MCG/SPRAY NASAL 16GM EA NOSTRIL SCH (08:59)
[2022-01-05 09:12] LABS: RBC Morphology Normal
[2022-01-05] MEDS ORDERED: VANCOMYCIN IV PER PHARMACY 1 EACH MISC MISCELLANE PRN (09:41)
[2022-01-05] MEDS: IOPAMIDOL CONTRAST (ORAL USE) VIAL PO PRN ×2 (10:12→11:01)
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
--- NOTE | 2022-01-05 12:05 | CT ---
EXAMINATION TYPE: CT abdomen pelvis w con CT DLP: 929.80 mGycm, Automated exposure control for dose reduction was used. DATE OF EXAM: 01/05/2022 11:42 AM COMPARISON: PET/CT 11/16/2020 CLINICAL INDICATION:Male, 66 years old with history of bacteremia, diarrhea; Abdominal pain, sepsis TECHNIQUE: Axial CT of the abdomen and pelvis. Sagittal and coronal reformats were created on a [employer] workstation. Contrast used:100 mL of Isovue 300 with IV Contrast, Oral contrast used: with Oral Contrast FINDINGS: LOWER CHEST: Unremarkable ABDOMEN LIVER: Diffusely hypoattenuating parenchyma. GALLBLADDER AND BILE DUCTS: Unremarkable. PANCREAS: Unremarkable. SPLEEN: Soft tissue mass is suspected represent Splenosis throughout the abdomen including the anteri or abdominal wall. Surgical clips in the left upper quadrant are present. ADRENAL GLANDS: Unremarkable. KIDNEYS AND URETERS: No evidence of hydronephrosis. Bilateral renal cysts. Nonobstructing right 4 mm calculus. PELVIS BLADDER: Unremarkable REPRODUCTIVE: Median lobe hypertrophy changes with prominent prostate gland. ABDOMEN & PELVIS STOMACH AND BOWEL: Scattered clonic diverticula are present. No evidence of bowel obstruction. PERITONEUM: No evidence of pneumoperitoneum or free fluid. VASCULATURE: No evidence of aortic aneurysm. MUSCULOSKELETAL: No acute osseous abnormalities. Moderate disc degeneration changes are present throu ghout the thoracolumbar spine. Multilevel disc space narrowing osteophytes and neural foraminal steno sis are present. LYMPH NODES: Scattered lymph nodes are seen in the retroperitoneum which are similar prior on 11/17/19 21. No additional prominent mesenteric lymph nodes are also present and similar prior PET scan. SOFT TISSUE/ABDOMINAL WALL: Subcutaneous gas within the anterior abdomen likely from medicine injecti ons. Ventral wall omental containing hernia measuring 12 mm at the neck. IMPRESSION: 1. No evidence for acute infectious process to explain the patient's bacteremia. 2. Similar retroperitoneal, mesenteric and scattered abdominal soft tissue masses seen dating back to 2013 some of this could represent splenosis. These are not FDG avid on prior PET 11/16/2020. 3. Hepatic steatosis. 4. Prostatomegaly correlate serum PSA.
[2022-01-05] MEDS: VANCOMYCIN 1,500 MG in SODIUM CHLORIDE 0.9% 250 ML IVPB SCH ×2 (14:00→21:42)
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
[2022-01-05] MEDS: ATORVASTATIN 20 MG TAB PO SCH (20:25)
[2022-01-05] MEDS: MAGNESIUM OXIDE 400 MG TAB PO SCH (20:26)
[2022-01-06] MEDS: LACTATED RINGERS 1,000 ML IV SCH ×2 (02:51→14:14)
[2022-01-06 04:44] LABS: Mycoplasma IgG Antibody (EIA) 0.41 INDEX (<=0.90); Mycoplasma IgM Antibody 0.22 INDEX (<=0.90)
[2022-01-06 06:16] LABS: Basophils # (A) 0.1 k/uL (0-0.2); Basophils % (A) 1 %; Eosinophils # (A) 0.3 k/uL (0-0.7); Eosinophils % (A) 2 %; HCT 44.7 % (39.0-53.0); HGB 14.3 gm/dL (13.0-17.5); Lymphocytes % (A) 59 %; MCH 31.5 pg (25.0-35.0); MCHC 32.1 g/dL (31.0-37.0); Macrocytosis Slight; Mean Platelet Volume 8.6; Monocytes # (A) 0.7 k/uL (0-1.0); Monocytes % (A) 4 %; Neutrophils # (A) 5.8 k/uL (1.3-7.7); Neutrophils % (A) 31 %; Platelet Count 149 k/uL (150-450); RBC 4.56 m/uL (4.30-5.90); RDW 15.6 % (11.5-15.5); WBC 18.6 k/uL (3.8-10.6)
[2022-01-06 06:30] LABS: African American GFR (CKD) >90 (>60 ml/min/1.73 sqM); Anion Gap 3 mmol/L; Blood Urea Nitrogen 7 mg/dL (9-20); Calcium 8.7 mg/dL (8.4-10.2); Carbon Dioxide 29 mmol/L (22-30); Chloride 107 mmol/L (98-107); Glucose 106 mg/dL (74-99); Non-African American GFR(CKD) >90 (>60 ml/min/1.73 sqM); Sodium 139 mmol/L (137-145)
[2022-01-06] MEDS: SYMBICORT 160-4.5 MCG INHALER INHALATION SCH ×2 (07:22→21:15)
[2022-01-06] MEDS: FOLIC ACID 1 MG TAB PO SCH (09:38)
[2022-01-06] MEDS: SERTRALINE 100 MG TAB PO SCH (09:38)
[2022-01-06] MEDS: LORATADINE 10 MG TAB PO SCH (09:38)
[2022-01-06] MEDS: PREGABALIN 100 MG CAP PO SCH ×2 (09:38→21:56)
[2022-01-06] MEDS: PANTOPRAZOLE 40 MG TABLET PO SCH (09:38)
[2022-01-06] MEDS: metroNIDAZOLE 500 MG TAB PO SCH ×4 (09:38→21:56)
[2022-01-06] MEDS: ENOXAPARIN 40 MG/0.4 ML SYRINGE SQ SCH (09:39)
[2022-01-06] MEDS: CIPROFLOXACIN HCL 500 MG TAB PO SCH ×2 (09:39→21:56)
[2022-01-06] MEDS: FLUTICASONE 50MCG/SPRAY NASAL 16GM EA NOSTRIL SCH (09:40)
[2022-01-06] MEDS: VANCOMYCIN 1,500 MG in SODIUM CHLORIDE 0.9% 250 ML IVPB SCH ×2 (10:47→22:11)
[2022-01-06 11:54] LABS: Immunoglobulin M 76.8 mg/dL (40.0-280.0)
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
[2022-01-06] MEDS: MAGNESIUM OXIDE 400 MG TAB PO SCH (21:56)
[2022-01-06] MEDS: ATORVASTATIN 20 MG TAB PO SCH (21:56)
[2022-01-07] MEDS: LACTATED RINGERS 1,000 ML IV SCH ×5 (02:05→20:05)
[2022-01-07] MEDS: SYMBICORT 160-4.5 MCG INHALER INHALATION SCH ×2 (07:50→19:27)
[2022-01-07] MEDS ORDERED: metHOTREXate sodium 2.5 MG TAB PO SCH (09:00)
[2022-01-07] MEDS ORDERED: VANCOMYCIN TROUGH DUE 1 EACH MISC MISCELLANE ONE (09:00)
[2022-01-07 09:37] LABS: Basophils # (A) 0.1 k/uL (0-0.2); Basophils % (A) 1 %; Eosinophils # (A) 0.3 k/uL (0-0.7); Eosinophils % (A) 2 %; HCT 45.4 % (39.0-53.0); HGB 14.9 gm/dL (13.0-17.5); Lymphocytes # (A) 11.3 k/uL (1.0-4.8); Lymphocytes % (A) 63 %; MCH 32.1 pg (25.0-35.0); MCHC 32.8 g/dL (31.0-37.0); MCV 97.9 fL (80.0-100.0); Mean Platelet Volume 8.4; Monocytes # (A) 0.6 k/uL (0-1.0); Monocytes % (A) 4 %; Neutrophils % (A) 28 %; Platelet Count 161 k/uL (150-450); RBC 4.64 m/uL (4.30-5.90); RDW 15.4 % (11.5-15.5); WBC 17.9 k/uL (3.8-10.6)
[2022-01-07] MEDS: metroNIDAZOLE 500 MG TAB PO SCH ×4 (10:04→21:05)
[2022-01-07] MEDS: PANTOPRAZOLE 40 MG TABLET PO SCH (10:05)
[2022-01-07] MEDS: PREGABALIN 100 MG CAP PO SCH ×2 (10:05→21:05)
[2022-01-07] MEDS: SERTRALINE 100 MG TAB PO SCH (10:05)
[2022-01-07] MEDS: FOLIC ACID 1 MG TAB PO SCH (10:05)
[2022-01-07] MEDS: CIPROFLOXACIN HCL 500 MG TAB PO SCH ×2 (10:05→21:05)
[2022-01-07] MEDS: FLUTICASONE 50MCG/SPRAY NASAL 16GM EA NOSTRIL SCH (10:05)
[2022-01-07] MEDS: ENOXAPARIN 40 MG/0.4 ML SYRINGE SQ SCH (10:05)
[2022-01-07] MEDS: LORATADINE 10 MG TAB PO SCH (10:05)
[2022-01-07] MEDS: VANCOMYCIN 1,500 MG in SODIUM CHLORIDE 0.9% 250 ML IVPB SCH ×2 (10:06→21:21)
[2022-01-07 10:08] LABS: African American GFR (CKD) >90 (>60 ml/min/1.73 sqM); Anion Gap 10 mmol/L; Blood Urea Nitrogen 7 mg/dL (9-20); Calcium 9.2 mg/dL (8.4-10.2); Carbon Dioxide 26 mmol/L (22-30); Chloride 104 mmol/L (98-107); Glucose 120 mg/dL (74-99); Non-African American GFR(CKD) >90 (>60 ml/min/1.73 sqM); Potassium 3.8 mmol/L (3.5-5.1); Sodium 140 mmol/L (137-145)
[2022-01-07 10:14] LABS: Lymphocytes # (M) 11.64 k/uL (1.0-4.8); Monocytes # (M) 1.79 k/uL (0-1.0); Neutrophils # (M) 4.48 k/uL (1.3-7.7); Neutrophils % (M) 25 %; Nucleated Red Blood Cells 0 /100 WBC (0-0); Polychromasia Present; Total Cells Counted 100
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
[2022-01-07] MEDS: MAGNESIUM OXIDE 400 MG TAB PO SCH (21:05)
[2022-01-07] MEDS: ATORVASTATIN 20 MG TAB PO SCH (21:05)
[2022-01-07] MEDS: ACETAMINOPHEN TAB 325 MG TAB PO PRN (21:19)
[2022-01-08] MEDS: LACTATED RINGERS 1,000 ML IV SCH ×2 (04:53→11:13)
[2022-01-08 06:49] LABS: Basophils # (A) 0.1 k/uL (0-0.2); Basophils % (A) 1 %; Eosinophils # (A) 0.4 k/uL (0-0.7); Eosinophils % (A) 2 %; HGB 13.6 gm/dL (13.0-17.5); Lymphocytes # (A) 11.9 k/uL (1.0-4.8); Lymphocytes % (A) 65 %; MCH 31.1 pg (25.0-35.0); MCHC 32.3 g/dL (31.0-37.0); MCV 96.2 fL (80.0-100.0); Mean Platelet Volume 8.4; Monocytes # (A) 0.7 k/uL (0-1.0); Monocytes % (A) 4 %; Neutrophils # (A) 4.7 k/uL (1.3-7.7); Neutrophils % (A) 25 %; Platelet Count 152 k/uL (150-450); RBC 4.37 m/uL (4.30-5.90); RDW 14.9 % (11.5-15.5); WBC 18.4 k/uL (3.8-10.6)
[2022-01-08] MEDS: SYMBICORT 160-4.5 MCG INHALER INHALATION SCH ×2 (08:17→21:06)
[2022-01-08] MEDS: CIPROFLOXACIN HCL 500 MG TAB PO SCH ×2 (10:14→21:38)
[2022-01-08] MEDS: ENOXAPARIN 40 MG/0.4 ML SYRINGE SQ SCH (10:14)
[2022-01-08] MEDS: metroNIDAZOLE 500 MG TAB PO SCH ×4 (10:14→21:38)
[2022-01-08] MEDS: PREGABALIN 100 MG CAP PO SCH ×2 (10:15→21:38)
[2022-01-08] MEDS: PANTOPRAZOLE 40 MG TABLET PO SCH (10:15)
[2022-01-08] MEDS: SERTRALINE 100 MG TAB PO SCH (10:15)
[2022-01-08] MEDS: FOLIC ACID 1 MG TAB PO SCH (10:15)
[2022-01-08] MEDS: FLUTICASONE 50MCG/SPRAY NASAL 16GM EA NOSTRIL SCH (10:15)
[2022-01-08] MEDS: VANCOMYCIN 1,500 MG in SODIUM CHLORIDE 0.9% 250 ML IVPB SCH ×2 (10:15→21:37)
[2022-01-08] MEDS: LORATADINE 10 MG TAB PO SCH (10:15)
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
[2022-01-08] MEDS: MAGNESIUM OXIDE 400 MG TAB PO SCH (21:38)
[2022-01-08] MEDS: ATORVASTATIN 20 MG TAB PO SCH (21:38)
[2022-01-09 07:18] LABS: African American GFR (CKD) >90 (>60 ml/min/1.73 sqM); Non-African American GFR(CKD) >90 (>60 ml/min/1.73 sqM)
[2022-01-09] MEDS: SYMBICORT 160-4.5 MCG INHALER INHALATION SCH ×2 (08:29→18:59)
[2022-01-09] MEDS: FOLIC ACID 1 MG TAB PO SCH (09:11)
[2022-01-09] MEDS: ENOXAPARIN 40 MG/0.4 ML SYRINGE SQ SCH (09:11)
[2022-01-09] MEDS: SERTRALINE 100 MG TAB PO SCH (09:11)
[2022-01-09] MEDS: PREGABALIN 100 MG CAP PO SCH ×2 (09:11→21:29)
[2022-01-09] MEDS: PANTOPRAZOLE 40 MG TABLET PO SCH (09:11)
[2022-01-09] MEDS: LORATADINE 10 MG TAB PO SCH (09:11)
[2022-01-09] MEDS: VANCOMYCIN 1,500 MG in SODIUM CHLORIDE 0.9% 250 ML IVPB SCH ×2 (09:12→21:29)
[2022-01-09] MEDS: FLUTICASONE 50MCG/SPRAY NASAL 16GM EA NOSTRIL SCH (09:12)
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
[2022-01-09] MEDS: ATORVASTATIN 20 MG TAB PO SCH (21:29)
[2022-01-09] MEDS: MAGNESIUM OXIDE 400 MG TAB PO SCH (21:29)
[2022-01-10 03:27] VITALS: RESP 16
[2022-01-10 06:14] LABS: Basophils # (A) 0.2 k/uL (0-0.2); Basophils % (A) 1 %; Eosinophils # (A) 0.3 k/uL (0-0.7); Eosinophils % (A) 2 %; HCT 47.6 % (39.0-53.0); HGB 14.7 gm/dL (13.0-17.5); Lymphocytes # (A) 12.1 k/uL (1.0-4.8); Lymphocytes % (A) 60 %; MCH 29.8 pg (25.0-35.0); MCHC 30.8 g/dL (31.0-37.0); MCV 96.6 fL (80.0-100.0); Mean Platelet Volume 8.7; Monocytes # (A) 0.8 k/uL (0-1.0); Monocytes % (A) 4 %; Neutrophils # (A) 5.9 k/uL (1.3-7.7); Neutrophils % (A) 29 %; Platelet Count 190 k/uL (150-450); RBC 4.93 m/uL (4.30-5.90); RDW 14.8 % (11.5-15.5); WBC 20.1 k/uL (3.8-10.6)
[2022-01-10] MEDS: SYMBICORT 160-4.5 MCG INHALER INHALATION SCH (08:29)
[2022-01-10] MEDS: PREGABALIN 100 MG CAP PO SCH (08:57)
[2022-01-10] MEDS: FOLIC ACID 1 MG TAB PO SCH (08:57)
[2022-01-10] MEDS: ENOXAPARIN 40 MG/0.4 ML SYRINGE SQ SCH (08:57)
[2022-01-10] MEDS: SERTRALINE 100 MG TAB PO SCH (08:57)
[2022-01-10] MEDS: PANTOPRAZOLE 40 MG TABLET PO SCH (08:57)
[2022-01-10] MEDS: LORATADINE 10 MG TAB PO SCH (08:57)
[2022-01-10] MEDS: FLUTICASONE 50MCG/SPRAY NASAL 16GM EA NOSTRIL SCH (08:59)
[2022-01-10] MEDS: VANCOMYCIN 1,500 MG in SODIUM CHLORIDE 0.9% 250 ML IVPB SCH (09:00)
[2022-01-10 09:41] VITALS: BP 98/64; PULSE 71; TEMP 98.3
[2022-01-10 11:11] VITALS: BMI 25.1
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
== END 2022-01-10 12:30 | disposition home or self-care (01) | DRG 872 ==
LOC: EC 19:45 → 4SSUR 01-04 02:00
PROVIDERS: ADMIT Hospitalist; ATTEND Hospitalist
DX: A41.89 Other specified sepsis (principal); J44.0 Chronic obstructive pulmonary disease with (acute) lower respiratory infection; A04.8 Other specified bacterial intestinal infections; C91.10 Chronic lymphocytic leukemia of B-cell type not having achieved remission; D84.821 Immunodeficiency due to drugs; M06.9 Rheumatoid arthritis, unspecified; F41.9 Anxiety disorder, unspecified; E78.5 Hyperlipidemia, unspecified; K21.9 Gastro-esophageal reflux disease without esophagitis; G62.9 Polyneuropathy, unspecified; F32.A Depression, unspecified; Z20.822 Contact with and (suspected) exposure to COVID-19; Z87.891 Personal history of nicotine dependence; Z79.899 Other long term (current) drug therapy; Z79.51 Long term (current) use of inhaled steroids; Z87.01 Personal history of pneumonia (recurrent); Z90.81 Acquired absence of spleen; Z98.890 Other specified postprocedural states; Z86.19 Personal history of other infectious and parasitic diseases; Z86.010 Personal history of colon polyps; Z82.5 Family history of asthma and other chronic lower respiratory diseases
CPT/HCPCS: 36415; 71046; 74177; 80048; 80053; 80202; 81001; 82565; 82784; 83605; 83630; 84145; 85025; 86140; 86738; 87040; 87045; 87046; 87329; 87493; 87502; 87635; 94640; 94760; 96365; 96366; 96368; 99285

== ENCOUNTER → 2022-05-20 | Outpatient (CLI) | payer MEDICARE, BC ==
[2022-05-20 09:24] LABS: African American GFR (CKD) >90 (>60 ml/min/1.73 sqM); Blood Urea Nitrogen 19 mg/dL (9-20); Non-African American GFR(CKD) 89 (>60 ml/min/1.73 sqM)
--- NOTE | 2022-05-20 11:00 | CT ---
EXAMINATION TYPE: CT abdomen pelvis w con DATE OF EXAM: 05/20/2022 COMPARISON: 01/05/2022 HISTORY: mass CT DLP: 803.5 mGycm CONTRAST: CT scan of the abdomen and pelvis is performed with Oral Contrast and with IV Contrast, patient injec chad with 70 mL of Isovue 300. FINDINGS: LUNG BASES-: No visible nodule. No infiltrate. LIVER/GB: Hepatic steatosis. No calcified gallstones. No space occupying hepatic lesion. Biliary tr ee is of normal caliber. PANCREAS: No inflammation. No distinct mass. SPLEEN: The spleen is not visible however there are multiple masses within the left upper quadrant un changed from prior stress study may reflect multiple splenules or splenosis overall appearance is unc hanged from prior study. ADRENALS: No nodule. No thickening. KIDNEYS/BLADDER: No hydronephrosis. No nephrolithiasis. Stable simple cyst left kidney. Urinary porter dder grossly unremarkable. BOWEL: Normal appendix. Normal bowel caliber. No inflammation. GENITAL ORGANS: Prostate enlargement LYMPH NODES: Stable retroperitoneal lymph nodes. AORTA: No significant abnormality. OSSEOUS STRUCTURES: No significant abnormality is seen. Other: Peritoneal masses remain unchanged IMPRESSION: 1. Stable retroperitoneal, mesenteric intra-abdominal soft tissue masses. 2. Hepatic steatosis. 3. Prostate enlargement. OTHER: No significant additional abnormality is seen. IMPRESSION: 1.
== END | disposition home or self-care (01) ==
LOC: RADCTMAIN 08:30
PROVIDERS: ATTEND Family Medicine
DX: K76.0 Fatty (change of) liver, not elsewhere classified (principal); N40.0 Benign prostatic hyperplasia without lower urinary tract symptoms; R19.00 Intra-abdominal and pelvic swelling, mass and lump, unspecified site
CPT/HCPCS: 82565; 84520; 74177; 36415; Q9967

== ENCOUNTER → 2022-11-14 | Outpatient (CLI) | payer MEDICARE, BC ==
--- NOTE | 2022-11-14 23:10 | PE ---
EXAMINATION TYPE: PET CT fusion skull to thigh DATE OF EXAM: 11/14/2022 CLINICAL INDICATION:Male, 67 years old with history of C91.10 CLL; TECHNIQUE: Following the intravenous administration of 10.1 mCi of F-18 FDG, whole body images are performed from the skull base to the midthigh. Images are reviewed on the computer in the coronal, a xial, and sagittal planes. Reconstructed rotating images are created on independent workstation and reviewed on the computer. A non-contrast CT is performed in conjunction with the PET scan. Glucose level 91 mg/dL COMPARISON: CT 05/20/2022, PET/CT 11/16/2020, FINDINGS: Mediastinal SUV mean is 1.6. Hepatic parenchyma SUV mean is 2.8. SKULL BASE AND NECK: No suspicious radiotracer activity. CHEST, MEDIASTINUM, AND HILAR REGION: * Bilateral axillary lymph nodes that are prominent. On the left Max SUV 2.5, previously 1.7 And on the right max SUV 1.3, previously 1.3. The largest in the right measuring 10 mm in short axis on the right measuring 9 mm in short axis these are stable in size from prior. * Medial right lower lobe consolidation changes where there is a large osteophyte vertebrae is large osteophyte max SUV 3.2 measuring 9 x 41 mm. * Left internal mammary chain lymph nodes measure up to 11 mm Max SUV 1.8. Similar in size to 019. * Right low paratracheal measuring 13 mm in short axis, previously 12 mm, max SUV 2.3 previously 1.3 . * Subcarinal lymph node measuring 13 mm in short axis may be mildly increased in size, previously 11 mm in short axis. Max SUV 1.9 previously 1.0. * Right high paratracheal lymph node measuring 12 mm in short axis, similar to prior 11/16/2020. Max SUV 1.9, previously 1.6.r ABDOMEN AND PELVIS: Scattered soft tissue masses are seen throughout the abdomen, examples include: 8.2 x 6.9 cm mass max SUV 3.1 , previously 5.5 x 3.6 cm. 4.5 x 3.4 cm mass with SUV 3.1, previously 2.7 x 2.2 cm. Mid abdomen slightly right of midline 9.3 x 7.5 cm max SUV 3.8 previously 5.4 x 4.1 cm At least 6 more of these lesions throughout the abdomen. There remains prominent lymph nodes throughout the retroperitoneum. Examples include 14 mm in short a xis josh hepatis lymph node previously 10 mm. Left periaortic lymph node measuring 12 mm which is si milar prior. Lymph node anterior to the superior vena cava level just both kidneys measuring 14 mm Ma x SUV 2.0 previously 12 mm and max SUV 1.2. Left inguinal lymph node measuring 12 mm in short axis is similar prior max SUV 2.3, previously 1.3 OSSEOUS STRUCTURES: No suspicious radiotracer activity. OTHER CT: Prominent bilateral axillary lymph nodes stable from multiple prior studies. Moderate to se kaveh three-vessel coronary artery calcification is unchanged. Surgical clips left upper quadrant posteriorly remain present. Residual splenosis scattered throughou t the upper quadrant. Hepatic steatosis. Bilateral renal cysts. Nonobstructing right renal calculus m easuring 3 mm. Adjacent ventral wall hernia containing fat and tiny mesenteric vessels in the midline. Diverticula t hroughout the left and sigmoid colon redemonstrated. Prostatomegaly. Multilevel spurring in the spine. Expansile spinal canal posteriorly lower lumbar spine. Multilevel d isc space narrowing. Prominent anterior spurring in the cervical spine. IMPRESSION: 1. Scattered lymphadenopathy some of which has mildly increased in size and could represent slow pro gression of disease given timeframe since 11/16/2020. Metabolic activity of these lesions is minimally increased and could be due to technique. 2. Scattered abdominal soft tissue masses. Given history of splenosis this could represent splenosis . This can be confirmed with nuclear medicine sulfur colloid scan. 3. Right medial lower lobe FDG activity near the spine. Favored to represent infectious/inflammatory process. ,
== END | disposition home or self-care (01) ==
LOC: RADPETMAIN 07:02
PROVIDERS: ATTEND Internal Medicine Hematology & Oncology
DX: C91.10 Chronic lymphocytic leukemia of B-cell type not having achieved remission (principal); R91.1 Solitary pulmonary nodule; R59.0 Localized enlarged lymph nodes
CPT/HCPCS: 78815; A9552

== ENCOUNTER → 2022-12-05 | Outpatient (CLI) | payer MEDICARE, BC ==
--- NOTE | 2022-12-05 12:50 | CT ---
EXAMINATION TYPE: CT facial bones wo con DATE OF EXAM: 12/05/2022 COMPARISON: None HISTORY: Chronic sinusitis CT DLP: 622.3 mGycm CONTRAST: 0 mL of Isovue 300 The paranasal sinuses are examined in the axial plane at 2 mm thick sections. Reconstructed images i n the coronal plane were obtained. There is dental amalgam scatter artifact. There is been prior uncinectomies and ethmoidectomies. Ostiomeatal units are widely patent. No suspic ious air-fluid levels are evident. The maxillary sinuses are clear. The ethmoid air cells are clear. The sphenoid sinuses are clear. The frontal sinuses are clear. The septum is evaluated. Minimal septal deviation is evident. IMPRESSIONS: 1. Postsurgical sinus surgery discussed above. 2. No suspicious mucosal thickening present to suggest chronic sinusitis.
== END | disposition home or self-care (01) ==
LOC: RADCTMAIN 11:30
PROVIDERS: ATTEND Family Medicine
DX: J32.9 Chronic sinusitis, unspecified (principal)
CPT/HCPCS: 70486

== ENCOUNTER 2023-01-12 21:20 | Observation (INO) | payer MEDICARE, BC ==
[2023-01-12] MEDS ORDERED: ACETAMINOPHEN TAB 325 MG TAB PO STA (22:33)
--- NOTE | 2023-01-12 23:22 | XR ---
EXAM: XR Chest, 2 Views CLINICAL HISTORY: ITS.REASON XR Reason: Fever TECHNIQUE: Frontal and lateral views of the chest. COMPARISON: No relevant prior studies available. FINDINGS: Lungs: Unremarkable. No consolidation. Pleural space: Unremarkable. No pneumothorax. Heart: Unremarkable. No cardiomegaly. Mediastinum: Unremarkable. Bones/joints: Unremarkable. IMPRESSION: Normal chest x-rays.
[2023-01-12 23:25] LABS: Chloride 102 mmol/L (98-107)
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
[2023-01-12 23:26] LABS: Partial Thromboplastin Time 24.5 sec (22.0-30.0); Prothrombin Time 10.3 sec (9.0-12.0)
[2023-01-12 23:27] LABS: ALT 18 U/L (4-49); AST 27 U/L (17-59); African American GFR (CKD) >90 (>60 ml/min/1.73 sqM); Albumin 3.9 g/dL (3.5-5.0); Alkaline Phosphatase 95 U/L (38-126); Anion Gap 8 mmol/L; Blood Urea Nitrogen 19 mg/dL (9-20); Carbon Dioxide 27 mmol/L (22-30); Glucose 108 mg/dL (74-99); Non-African American GFR(CKD) >90 (>60 ml/min/1.73 sqM); Potassium 3.9 mmol/L (3.5-5.1); Sodium 137 mmol/L (137-145); Total Bilirubin 2.1 mg/dL (0.2-1.3); Total Protein 7.2 g/dL (6.3-8.2)
[2023-01-12] MEDS: LACTATED RINGERS 500 ML IV SCH ×2 (23:31→23:32)
[2023-01-12 23:32] LABS: Anisocytosis Slight; HCT 29.7 % (39.0-53.0); HGB 10.2 gm/dL (13.0-17.5); MCH 29.9 pg (25.0-35.0); MCHC 34.4 g/dL (31.0-37.0); MCV 86.9 fL (80.0-100.0); Platelet Count 76 k/uL (150-450); RBC 3.42 m/uL (4.30-5.90); RDW 16.1 % (11.5-15.5)
[2023-01-12 23:34] LABS: WBC 121.1 k/uL (3.8-10.6)
[2023-01-13 00:45] LABS: Eosinophils # (M) 1.21 k/uL (0-0.7); Lymphocytes # (M) 118.68 k/uL (1.0-4.8); Neutrophils # (M) 1.21 k/uL (1.3-7.7); Neutrophils % (M) 1 %; Nucleated Red Blood Cells 0 /100 WBC (0-0); Total Cells Counted 100
[2023-01-13 00:46] LABS: Anisocytosis (M) Present; Hypochromasia (M) Present; Target Cells Present
[2023-01-13 01:18] LABS: Appearance,Urine Clear (Clear); Bilirubin,Urine Negative (Negative); Blood,Urine Negative (Negative); Color,Urine Light Red; Glucose,Urine (UA) Negative (Negative); Ketones,Urine Negative (Negative); Leukocyte Esterase,Urine Negative (Negative); Nitrite,Urine Negative (Negative); PH, Urine 5.5 (5.0-8.0); Protein,Urine Negative (Negative); Specific Gravity,Urine 1.019 (1.001-1.035); Urobilinogen,Urine <2.0 mg/dL (<2.0)
[2023-01-13] MEDS ORDERED: NALOXONE 0.4 MG/ML 1 ML VIAL IV PRN (01:42)
[2023-01-13] MEDS ORDERED: MAG HYDROX/AL HYDROX/SIMETH 30 ML CUP PO PRN (01:42)
[2023-01-13] MEDS ORDERED: ONDANSETRON 4 MG/2 ML VIAL IVP PRN (01:42)
[2023-01-13] MEDS: SODIUM CHLORIDE 0.9% 1,000 ML IV SCH (08:41)
[2023-01-13] MEDS: ACETAMINOPHEN TAB 325 MG TAB PO PRN (08:43)
[2023-01-13] MEDS: FAMOTIDINE 20 MG TAB PO SCH ×2 (08:43→20:26)
[2023-01-13] MEDS: PREGABALIN 100 MG CAP PO SCH ×2 (15:57→20:26)
[2023-01-13] MEDS: SERTRALINE 100 MG TAB PO SCH (15:58)
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
[2023-01-13 20:10] LABS: % Iron Saturation 87.96 (15.00-50.00)
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
[2023-01-14] MEDS: SODIUM CHLORIDE 0.9% 1,000 ML IV SCH ×3 (01:46→07:56)
[2023-01-14] MEDS ORDERED: ALBUTEROL NEBULIZED 2.5 MG/3 ML INHALATION PRN (02:00)
[2023-01-14] MEDS: ACETAMINOPHEN TAB 325 MG TAB PO PRN (07:55)
[2023-01-14] MEDS: PREGABALIN 100 MG CAP PO SCH (07:56)
[2023-01-14] MEDS: FAMOTIDINE 20 MG TAB PO SCH (07:56)
[2023-01-14] MEDS: SERTRALINE 100 MG TAB PO SCH (07:56)
[2023-01-14] MEDS ORDERED: SYMBICORT 160-4.5 MCG INHALER INHALATION SCH (08:00)
[2023-01-14] MEDS ORDERED: FLUTICASONE 50MCG/SPRAY NASAL 16GM EA NOSTRIL SCH (09:00)
[2023-01-14] MEDS ORDERED: FOLIC ACID 1 MG TAB PO SCH (09:00)
[2023-01-14 09:24] LABS: Blood Urea Nitrogen 15.3 mg/dL (9.0-27.0); Calcium 9.2 mg/dL (8.7-10.3); Carbon Dioxide 27.1 mmol/L (21.6-31.8); Chloride 105 mmol/L (96-109); Glucose 95 mg/dL (70-110); Potassium 4.2 mmol/L (3.5-5.5); Sodium 142 mmol/L (135-145)
[2023-01-14 11:27] LABS: Basophils # (M) 0 X 10*3/uL (0.00-0.10); Blast Cells # (M) 1.45 k/uL (0); Eosinophils # (M) 0 X 10*3/uL (0.04-0.35); HCT 25.2 % (39.6-50.0); HGB 7.8 d/dL (13.0-17.0); Immature Platelet Fraction 13.1 % (1.1-6.1); Lymphocytes # (M) 127.97 X 10*3/uL (0.90-5.00); MCH 27.8 pg (27.0-32.0); MCV 89.7 FL (80.0-97.0); Mean Platelet Volume 12.1 FL (9.5-12.2); Monocytes # (M) 5.82 X 10*3/uL (0.20-1.00); NRBC Per 100 WBC 0.02 X 10*3/uL (0.00-0.01); Neutrophils # (M) 10.18 X 10*3/uL (1.80-7.70); Neutrophils % (M) 7 %; Platelet Count 116 X 10*3/uL (140-440); RBC 2.81 X 10*6/uL (4.40-5.60); RDW 16.7 % (11.5-14.5); WBC 145.42 X 10*3/uL (4.50-10.00)
[2023-01-14 12:39] VITALS: BP 115/60; PULSE 83; RESP 16; TEMP 98.1
[2023-01-14] MEDS ORDERED: MONTELUKAST 10 MG TAB PO SCH (21:00)
[2023-01-15 05:58] LABS: Methylmalonic Acid 0.28 umol/L (<0.40)
--- NOTE | 2023-01-21 16:55 | P.DS ---
Providers Date of admission: 01/13/23 01:45 Expected date of discharge: 01/14/23 Attending physician: Bev Cook Consults: 01/13/23 01:42 Consult Physician Routine Consulting Provider: Viet Cruz Consult Reason/Comments: Leukocytosis Do you want consulting provider notified?: Yes Primary care physician: Jeramy Aaron [facility] Course: Final diagnosis Leukocytosis with WBC 121 Thrombocytopenia Bicytopenia Generalized weakness and fatigue and weight loss and night sweats History of mantle cell lymphoma on close follow-up with oncology Recent COVID-19 infection and flu Hyperlipidemia GERD Rheumatoid arthritis was on methotrexate COPD Prior history of smoking DVT prophylaxis with SCDs due to thrombocytopenia Discharge disposition Patient is being discharged in a stable condition with guarded prognosis to home . Patient will follow-up with Dr. Aaron in the outpatient setting upon discharge. Patient is to follow-up with oncologist as scheduled. Total time taken is greater than 35 minutes. Hospital course This is a 67-year-old male who was recently admitted with elevated white count found to be above 121 along with pancytopenia being closely monitored. Patient had generalized fatigue and weakness has been seen by oncology. Patient follows with oncologist in [place] and has been instructed to follow-up with them on discharge. Patient reports to feeling somewhat improved and would like to go home. Patient has been cleared by oncology for discharge today. Recommend follow-up labs closely in the next few days. Please refer to other consultation notes for further HPI. Currently no reports of chest pain, shortness of breath, or palpitations. Patient is afebrile. No reports of nausea or vomiting and patient is tolerating diet. Patient will be discharged home today. Physical exam: Gen: This is a 67-year-old male who is awake, alert and oriented 3, well- developed, well-nourished HEENT: Head is atraumatic, normocephalic. Pupils equal, round. Sclerae is anicteric. NECK: Supple. No JVD. No lymphadenopathy. No thyromegaly. LUNGS: Clear to auscultation. No wheezes or rhonchi. No intercostal retractions. HEART: Regular rate and rhythm. No murmur. ABDOMEN: Soft. Bowel sounds are present. No masses. No tenderness. EXTREMITIES: No pedal edema. No calf tenderness. NEUROLOGICAL: Patient is awake, alert and oriented x3. Cranial nerves 2 through 12 are grossly intact. Please refer to medication reconciliation sheet for a list of medications. The impression and plan of care has been dictated by Aliya Cuenca, Nurse Practitioner as directed. Dr. Karrie MD I have performed a history and examination and MDM of this patient, discussed the same with the dictator, and agree with the dictator's assessment and plan as written ,documented as a scribe. Based on total visit time, I have performed more than 50% of the visit. Patient Condition at Discharge: Fair Plan - Discharge Summary Discharge Rx Participant: No New Discharge Prescriptions: Continue Sertraline HCl [Zoloft] 100 mg PO DAILY Omeprazole 20 mg PO DAILY Turmeric/Curcumin 500 mg PO DAILY Budesonide/Formoterol Fumarate [Symbicort 160-4.5 Mcg Inhaler] 2 puff INHALATION RT-BID Pregabalin [Lyrica] 200 mg PO BID Acetaminophen Tab [Tylenol] 500 mg PO Q6H PRN PRN Reason: Pain Or Fever > 100.5 Fluticasone Nasal [place] [Flonase Nasal [place]] 1 spray EA NOSTRIL DAILY Folic Acid 1 mg PO DAILY Montelukast [Singulair] 10 mg PO HS Guaifen/Phenyleph/Acetaminophn [Tylenol Sinus Severe Caplet] 1 tab PO Q6HR PRN PRN Reason: Congestion Albuterol Sulfate [Ventolin HFA] 2 puff INHALATION RT-Q6H PRN PRN Reason: Shortness Of Breath Fexofenadine HCl 180 mg PO DAILY [place]-3/Dha/Epa/Fish Oil [Fish Oil 1,000 mg Softgel] 2 cap PO DAILY Multivit,Calc,Min/FA/K1/Lycop [One-A-Day Men's Complete Tab] 1 tab PO DAILY Cholecalciferol [Vitamin D3 (25 Mcg = 1000 Iu)] 50 mcg PO DAILY Discontinued Amoxic-Pot Clav 875-125Mg [Augmentin 875-125] 1 tab PO Q12HR No Action allopurinoL [Zyloprim] 200 mg PO DAILY #60 tab dexAMETHasone [Decadron] 4 mg PO DAILY #90 tablet Discharge Medication List Omeprazole 20 mg PO DAILY 09/17/18 [History] Sertraline HCl [Zoloft] 100 mg PO DAILY 09/17/18 [History] Turmeric/Curcumin 500 mg PO DAILY 09/17/18 [History] Acetaminophen Tab [Tylenol] 500 mg PO Q6H PRN 02/11/21 [History] Albuterol Sulfate [Ventolin HFA] 2 puff INHALATION RT-Q6H PRN 02/11/21 [History] Budesonide/Formoterol Fumarate [Symbicort 160-4.5 Mcg Inhaler] 2 puff INHALATION RT-BID 02/11/21 [History] Fexofenadine HCl 180 mg PO DAILY 02/11/21 [History] Pregabalin [Lyrica] 200 mg PO BID 02/11/21 [History] Fluticasone Nasal [place] [Flonase Nasal [place]] 1 spray EA NOSTRIL DAILY 01/03/22 [History] Folic Acid 1 mg PO DAILY 01/03/22 [History] Multivit,Calc,Min/FA/K1/Lycop [One-A-Day Men's Complete Tab] 1 tab PO DAILY 01/03/22 [History] [place]-3/Dha/Epa/Fish Oil [Fish Oil 1,000 mg Softgel] 2 cap PO DAILY 01/03/22 [History] Cholecalciferol [Vitamin D3 (25 Mcg = 1000 Iu)] 50 mcg PO DAILY 01/13/23 [History] Guaifen/Phenyleph/Acetaminophn [Tylenol Sinus Severe [place]] 1 tab PO Q6HR PRN 01/13/23 [History] Montelukast [Singulair] 10 mg PO HS 01/13/23 [History] allopurinoL [Zyloprim] 200 mg PO DAILY #60 tab 01/20/23 [Rx] dexAMETHasone [Decadron] 4 mg PO DAILY #90 tablet 01/20/23 [Rx] Follow up Appointment(s)/Referral(s): Jeramy Aaron MD [Primary Care Provider] - 01/20/23 11:00 am Ambulatory/Diagnostic Orders: Complete Blood Count w/diff [LAB.AMB] Time Frame: 1 Week, Location: None Select ed Patient Instructions/Handouts: Leukocytosis (DC) Activity/Diet/Wound Care/Special Instructions: Activity Limited until follow-up Follow-up with your primary care provider on discharge Follow-up with your oncologist this week Recommend follow-up labs to monitor hemoglobin in the next week Discharge Disposition: HOME SELF-CARE
== END 2023-01-14 16:11 | disposition home or self-care (01) ==
LOC: EC 21:20 → 5NMEDONC 01-13 01:45
PROVIDERS: ADMIT Hospitalist; ATTEND Hospitalist
DX: D72.829 Elevated white blood cell count, unspecified (principal); D72.820 Lymphocytosis (symptomatic); D69.6 Thrombocytopenia, unspecified; C83.10 Mantle cell lymphoma, unspecified site; K21.9 Gastro-esophageal reflux disease without esophagitis; E78.5 Hyperlipidemia, unspecified; M06.9 Rheumatoid arthritis, unspecified; K63.5 Polyp of colon; R63.4 Abnormal weight loss; R53.83 Other fatigue; J44.9 Chronic obstructive pulmonary disease, unspecified; R61 Generalized hyperhidrosis; R53.1 Weakness; I25.2 Old myocardial infarction; D64.9 Anemia, unspecified; Z79.631 Long term (current) use of antimetabolite agent; Z79.51 Long term (current) use of inhaled steroids; Z79.899 Other long term (current) drug therapy; Z87.01 Personal history of pneumonia (recurrent); Z86.19 Personal history of other infectious and parasitic diseases; Z90.81 Acquired absence of spleen; Z85.6 Personal history of leukemia; Z86.16 Personal history of COVID-19; Z87.891 Personal history of nicotine dependence; Z98.890 Other specified postprocedural states; Z82.5 Family history of asthma and other chronic lower respiratory diseases
CPT/HCPCS: 96365; 99284; 36415; 94640 ×2; 93005; 83921; 80053; 80048; 82607; 82728; 82525; 82746; 83540; 83550; 83605; 84484; 85025 ×2; 85610; 85730; 81003; 87040; 71046; G0378 ×2; J0696

== ENCOUNTER 2023-01-18 09:46 | Inpatient (IN) | payer MEDICARE, BC ==
[2023-01-18] MEDS ORDERED: SODIUM CHLORIDE 0.9% 500 ML 500 ML IV STA (10:07)
[2023-01-18] MEDS ORDERED: PANTOPRAZOLE 40 MG/10 ML VIAL IVP STA (10:07)
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
[2023-01-18 10:37] LABS: Anisocytosis Slight; MCH 30.5 pg (25.0-35.0); MCHC 35.5 g/dL (31.0-37.0); MCV 85.9 fL (80.0-100.0); Mean Platelet Volume 9.8; Platelet Count 145 k/uL (150-450); RBC 1.56 m/uL (4.30-5.90); RDW 16.4 % (11.5-15.5)
[2023-01-18 10:39] LABS: Partial Thromboplastin Time 26.1 sec (22.0-30.0); Prothrombin Time 10.4 sec (9.0-12.0)
[2023-01-18 10:39] LABS: ALT 16 U/L (4-49); AST 30 U/L (17-59); African American GFR (CKD) >90 (>60 ml/min/1.73 sqM); Albumin 3.7 g/dL (3.5-5.0); Alkaline Phosphatase 91 U/L (38-126); Anion Gap 7 mmol/L; Blood Urea Nitrogen 17 mg/dL (9-20); Calcium 8.7 mg/dL (8.4-10.2); Carbon Dioxide 27 mmol/L (22-30); Chloride 104 mmol/L (98-107); Glucose 112 mg/dL (74-99); Magnesium 1.9 mg/dL (1.6-2.3); Non-African American GFR(CKD) >90 (>60 ml/min/1.73 sqM); Potassium 4.2 mmol/L (3.5-5.1); Sodium 138 mmol/L (137-145); Total Bilirubin 2.6 mg/dL (0.2-1.3); Total Protein 6.9 g/dL (6.3-8.2)
[2023-01-18 10:42] LABS: HCT 13.4 % (39.0-53.0); HGB 4.7 gm/dL (13.0-17.5); WBC 164.6 k/uL (3.8-10.6)
[2023-01-18 11:16] LABS: Eosinophils # (M) 1.65 k/uL (0-0.7); Monocytes # (M) 4.94 k/uL (0-1.0); Neutrophils # (M) 14.81 k/uL (1.3-7.7); Neutrophils % (M) 9 %
[2023-01-18 11:17] LABS: Blast Cells # (M) 1.65 k/uL (0); Nucleated Red Blood Cells 0 /100 WBC (0-0); Total Cells Counted 200
[2023-01-18 12:01] LABS: Appearance,Urine Clear (Clear); Bilirubin,Urine Negative (Negative); Blood,Urine Negative (Negative); Glucose,Urine (UA) Negative (Negative); Ketones,Urine Negative (Negative); Leukocyte Esterase,Urine Negative (Negative); Nitrite,Urine Negative (Negative); PH, Urine 7.5 (5.0-8.0); Protein,Urine Negative (Negative); Specific Gravity,Urine 1.014 (1.001-1.035); Urobilinogen,Urine <2.0 mg/dL (<2.0)
[2023-01-18 12:08] LABS: Color,Urine Yellow
[2023-01-18] MEDS ORDERED: NALOXONE 0.4 MG/ML 1 ML VIAL IV PRN (14:24)
[2023-01-18] MEDS ORDERED: ONDANSETRON 4 MG/2 ML VIAL IVP PRN (14:24)
[2023-01-18] MEDS ORDERED: ACETAMINOPHEN TAB 325 MG TAB PO PRN (14:24)
[2023-01-18] MEDS ORDERED: ACETAMINOPHEN TAB 500 MG TAB PO PRN (14:28)
[2023-01-18] MEDS ORDERED: ALBUTEROL NEBULIZED 2.5 MG/3 ML INHALATION PRN (14:28)
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
[2023-01-18 16:54] LABS: MCHC 34.7 g/dL (31.0-37.0); MCV 86.7 fL (80.0-100.0); Mean Platelet Volume 9.7; Platelet Count 140 k/uL (150-450); RBC 1.85 m/uL (4.30-5.90); RDW 15.5 % (11.5-15.5)
[2023-01-18 17:00] LABS: WBC 158.2 k/uL (3.8-10.6)
[2023-01-18] MEDS: SODIUM CHLORIDE 0.9% 1,000 ML IV SCH (17:33)
[2023-01-18] MEDS: allopurinoL 100 MG TAB PO SCH (17:33)
[2023-01-18] MEDS: dexAMETHasone 4 MG TAB PO SCH (17:42)
[2023-01-18 20:01] LABS: Band Neutrophils % 1 %; Lymphocytes # (M) 150.29 k/uL (1.0-4.8); Monocytes # (M) 3.16 k/uL (0-1.0); Neutrophils % (M) 2 %; Nucleated Red Blood Cells 0 /100 WBC (0-0); Total Cells Counted 100
[2023-01-18] MEDS: SYMBICORT 160-4.5 MCG INHALER INHALATION SCH (20:01)
[2023-01-18 20:03] LABS: Anisocytosis (M) Present
[2023-01-18 20:12] LABS: HGB 5.6 gm/dL (13.0-17.5)
[2023-01-18] MEDS: PREGABALIN 100 MG CAP PO SCH (20:55)
[2023-01-18] MEDS: MONTELUKAST 10 MG TAB PO SCH (20:56)
[2023-01-18 21:14] LABS: HCT 20.4 % (39.0-53.0); MCHC 35.4 g/dL (31.0-37.0); MCV 84.7 fL (80.0-100.0); Mean Platelet Volume 10.4; Platelet Count 135 k/uL (150-450); RBC 2.41 m/uL (4.30-5.90); RDW 15.2 % (11.5-15.5)
[2023-01-18 21:15] LABS: HGB 7.2 gm/dL (13.0-17.5)
[2023-01-18 23:38] LABS: % Iron Saturation 88.08 (15.00-50.00)
[2023-01-19] MEDS: SODIUM CHLORIDE 0.9% 1,000 ML IV SCH ×3 (05:10→21:42)
[2023-01-19] MEDS: SYMBICORT 160-4.5 MCG INHALER INHALATION SCH ×2 (07:44→20:00)
[2023-01-19] MEDS: PREGABALIN 100 MG CAP PO SCH ×2 (08:50→21:18)
[2023-01-19] MEDS: FLUTICASONE 50MCG/SPRAY NASAL 16GM EA NOSTRIL SCH (08:50)
[2023-01-19] MEDS: dexAMETHasone 4 MG TAB PO SCH (08:50)
[2023-01-19] MEDS: allopurinoL 100 MG TAB PO SCH (08:50)
[2023-01-19] MEDS: PANTOPRAZOLE 40 MG TABLET PO SCH (08:50)
[2023-01-19] MEDS: SERTRALINE 100 MG TAB PO SCH (08:51)
[2023-01-19] MEDS: LORATADINE 10 MG TAB PO SCH (08:51)
[2023-01-19] MEDS: CHOLECALCIFEROL 25 MCG (1000 IU) TABLET PO SCH (08:52)
[2023-01-19] MEDS: FOLIC ACID 1 MG TAB PO SCH (08:52)
[2023-01-19 11:05] LABS: ALT 16 U/L (10-49); AST 33 U/L (14-35); Albumin 4.3 d/dL (3.8-4.9); Albumin/Globulin Ratio 1.65 Ratio (1.60-3.17); Alkaline Phosphatase 92 U/L (41-126); Blood Urea Nitrogen 19.8 mg/dL (9.0-27.0); Calcium 8.8 mg/dL (8.7-10.3); Carbon Dioxide 21.3 mmol/L (21.6-31.8); Chloride 106 mmol/L (96-109); Globulin 2.6 d/dL (1.6-3.3); Glucose 186 mg/dL (70-110); LDH 468 U/L (120-246); Potassium 4.3 mmol/L (3.5-5.5); Sodium 140 mmol/L (135-145); Total Bilirubin 1.7 mg/dL (0.3-1.2); Total Protein 6.9 d/dL (6.2-8.2)
[2023-01-19 11:37] LABS: Basophils # (M) 0 X 10*3/uL (0.00-0.10); Eosinophils # (M) 0 X 10*3/uL (0.04-0.35); HGB 6.5 d/dL (13.0-17.0); Immature Platelet Fraction 13.3 % (1.1-6.1); Lymphocytes # (M) 165.15 X 10*3/uL (0.90-5.00); MCH 28.1 pg (27.0-32.0); MCV 90.9 FL (80.0-97.0); Mean Platelet Volume 12.5 FL (9.5-12.2); Monocytes # (M) 3.51 X 10*3/uL (0.20-1.00); NRBC Per 100 WBC 0.54 X 10*3/uL (0.00-0.01); Neutrophils # (M) 7.03 X 10*3/uL (1.80-7.70); Neutrophils % (M) 4 %; Platelet Count 173 X 10*3/uL (140-440); RBC 2.31 X 10*6/uL (4.40-5.60); RBC Morphology Normal (Normal); RDW 15.2 % (11.5-14.5); WBC 175.69 X 10*3/uL (4.50-10.00)
--- NOTE | 2023-01-19 13:23 | P.PN ---
Subjective Progress Note Date: 01/19/23 Principal diagnosis: anemia, lymphocytosis In f/u today pt reports feeling better, no fevers, N, appetite is fair, no reported acute changes in bowels or bladder, no pain reported. Objective - Vital Signs Vital signs: Vital Signs Temp 98.5 F 01/19/23 07:38 Pulse 73 01/19/23 07:38 Resp 17 01/19/23 07:38 BP 101/63 01/19/23 07:38 Pulse Ox 96 01/19/23 07:38 FiO2 Intake & Output 01/18/23 01/19/23 01/19/23 18:59 06:59 18:59 Intake Total 0 310 Output Total 400 Balance 0 -90 Weight 77.111 kg 77.111 kg Intake: Blood Product 0 310 Rc Irr As1 Unit 0 [id number] Rc Irr As1 Unit 0 310 [id number] Output: Urine 400 Other: Voiding Method Toilet Toilet - Constitutional General appearance: Present: average body habitus, cooperative, no acute distress - EENT Eyes: Present: anicteric sclerae, EOMI ENT: Present: hearing grossly normal - Respiratory Details: resp even and unlabored at rest - Cardiovascular Details: skin warm and dry to touch - Peripheral edema leg Peripheral Edema: bilateral: None - Integumentary Integumentary: Present: pale - Neurologic Neurologic: Present: CNII-XII intact - Musculoskeletal Musculoskeletal: Present: strength equal bilaterally - Psychiatric Psychiatric: Present: A&O x's 3, appropriate affect, intact judgment & insight - Labs CBC & Chem 7: 01/19/23 06:28 01/19/23 06:28 Labs: Abnormal Lab Results - Last 24 Hours (Table) 01/18/23 01/18/23 01/18/23 Range/Units 10:00 10:09 10:09 WBC 164.6 H* (3.8-10.6) k/uL RBC 1.56 L (4.30-5.90) m/uL Hgb 4.7 L* D (13.0-17.5) gm/dL Hct 13.4 L* (39.0-53.0) % RDW 16.4 H (11.5-15.5) % Plt Count 145 L D (150-450) k/uL Blast Cells % 1 H* % Neutrophils # (Manual) 14.81 H (1.3-7.7) k/uL Lymphocytes # (Manual) 143.20 H (1.0-4.8) k/uL Monocytes # (Manual) 4.94 H (0-1.0) k/uL Eosinophils # (Manual) 1.65 H (0-0.7) k/uL Blast Cells # (Man) 1.65 H (0) k/uL Haptoglobin (31.2-198.0) mg/dL Glucose (74-99) mg/dL Iron 266 H (65-175) UG/DL % Saturation 88.08 H (15.00-50.00) Ferritin 894.0 H (22.0-322.0) ng/mL Total Bilirubin (0.2-1.3) mg/dL Lactate Dehydrogenase 388 H (120-246) U/L Crossmatch See Detail 01/18/23 01/18/23 01/18/23 Range/Units 10:09 10:10 15:48 WBC 158.2 H* (3.8-10.6) k/uL RBC 1.85 L (4.30-5.90) m/uL Hgb 5.6 L* (13.0-17.5) gm/dL Hct 16.0 L* (39.0-53.0) % RDW (11.5-15.5) % Plt Count 140 L (150-450) k/uL Blast Cells % % Neutrophils # (Manual) (1.3-7.7) k/uL Lymphocytes # (Manual) 150.29 H (1.0-4.8) k/uL Monocytes # (Manual) 3.16 H (0-1.0) k/uL Eosinophils # (Manual) (0-0.7) k/uL Blast Cells # (Man) (0) k/uL Haptoglobin <10.0 L (31.2-198.0) mg/dL Glucose 112 H (74-99) mg/dL Iron (65-175) UG/DL % Saturation (15.00-50.00) Ferritin (22.0-322.0) ng/mL Total Bilirubin 2.6 H (0.2-1.3) mg/dL Lactate Dehydrogenase (120-246) U/L Crossmatch 01/18/23 Range/Units 21:07 WBC 151.0 H* (3.8-10.6) k/uL RBC 2.41 L (4.30-5.90) m/uL Hgb 7.2 L D (13.0-17.5) gm/dL Hct 20.4 L (39.0-53.0) % RDW (11.5-15.5) % Plt Count 135 L (150-450) k/uL Blast Cells % % Neutrophils # (Manual) (1.3-7.7) k/uL Lymphocytes # (Manual) (1.0-4.8) k/uL Monocytes # (Manual) (0-1.0) k/uL Eosinophils # (Manual) (0-0.7) k/uL Blast Cells # (Man) (0) k/uL Haptoglobin (31.2-198.0) mg/dL Glucose (74-99) mg/dL Iron (65-175) UG/DL % Saturation (15.00-50.00) Ferritin (22.0-322.0) ng/mL Total Bilirubin (0.2-1.3) mg/dL Lactate Dehydrogenase (120-246) U/L Crossmatch Assessment and Plan (1) Anemia Current Visit: Yes Status: Acute Priority: Medium Code(s): D64.9 - ANEMIA, UNSPECIFIED SNOMED Code(s): 106550032 (2) Lymphocytosis Current Visit: Yes Status: Acute Priority: High Code(s): D72.820 - LYMPHOCYTOSIS (SYMPTOMATIC) SNOMED Code(s): 56178598 Plan: Anemia -Progressive, secondary to underlying disease. -1 unit of irradiated PRBCs ordered for a hemoglobin of 6.5 today Lymphocytosis -Dr. Cruz spoke with pt primary Oncologist. Labs/presentation suggestive of disease progression. -Started on pulse dose dexamethasone. -If there is underlying hemolysis occurring, the steroids will treat that as well. Bilirubin is down today, LDH is higher today. -TLS lab neg. Allopurinol was started when steroids initiated -daily labs Per patient request, he lives closer to [place] so, he is requesting to change Oncologists. We will request records from patient's Medical Oncologist. We'll get a follow-up to see patient in the office in the next 1-2 weeks. attests: I have seen and examined patient, performed H&P, developed impression and plan of care. Discussed with dictator. Agree with documentati on, dictated as a scribe
[2023-01-19] MEDS: MONTELUKAST 10 MG TAB PO SCH (21:18)
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
[2023-01-20 06:19] LABS: HCT 20.2 % (39.0-53.0); MCH 29.9 pg (25.0-35.0); MCHC 34.3 g/dL (31.0-37.0); MCV 87.1 fL (80.0-100.0); Mean Platelet Volume 10.3; Platelet Count 162 k/uL (150-450); RBC 2.32 m/uL (4.30-5.90); RDW 15.8 % (11.5-15.5)
[2023-01-20 06:25] LABS: ALT 16 U/L (4-49); AST 27 U/L (17-59); African American GFR (CKD) >90 (>60 ml/min/1.73 sqM); Albumin 3.4 g/dL (3.5-5.0); Albumin/Globulin Ratio 1.1; Alkaline Phosphatase 80 U/L (38-126); Anion Gap 9 mmol/L; Blood Urea Nitrogen 28 mg/dL (9-20); Calcium 8.4 mg/dL (8.4-10.2); Carbon Dioxide 21 mmol/L (22-30); Chloride 108 mmol/L (98-107); Globulin 3.2 g/dL; Glucose 145 mg/dL (74-99); LDH 383 U/L (120-246); Non-African American GFR(CKD) >90 (>60 ml/min/1.73 sqM); Potassium 4.1 mmol/L (3.5-5.1); Sodium 138 mmol/L (137-145); Total Bilirubin 1.5 mg/dL (0.2-1.3); Total Protein 6.6 g/dL (6.3-8.2)
[2023-01-20 06:26] LABS: HGB 6.9 gm/dL (13.0-17.5)
[2023-01-20 07:32] LABS: Band Neutrophils % 1 %; Blast Cells # (M) 2.84 k/uL (0); Metamyelocytes # (M) 1.42 k/uL (0); Metamyelocytes % 1 %; Monocytes # (M) 12.78 k/uL (0-1.0); Neutrophils % (M) 9 %; Nucleated Red Blood Cells 0 /100 WBC (0-0); Total Cells Counted 200
[2023-01-20] MEDS: SYMBICORT 160-4.5 MCG INHALER INHALATION SCH (07:56)
[2023-01-20] MEDS: CHOLECALCIFEROL 25 MCG (1000 IU) TABLET PO SCH (08:55)
[2023-01-20] MEDS: SERTRALINE 100 MG TAB PO SCH (08:55)
[2023-01-20] MEDS: LORATADINE 10 MG TAB PO SCH (08:55)
[2023-01-20] MEDS: PANTOPRAZOLE 40 MG TABLET PO SCH (08:55)
[2023-01-20] MEDS: FOLIC ACID 1 MG TAB PO SCH (08:55)
[2023-01-20] MEDS: dexAMETHasone 4 MG TAB PO SCH (08:55)
[2023-01-20] MEDS: PREGABALIN 100 MG CAP PO SCH (08:55)
[2023-01-20] MEDS: allopurinoL 100 MG TAB PO SCH (08:55)
[2023-01-20] MEDS: FLUTICASONE 50MCG/SPRAY NASAL 16GM EA NOSTRIL SCH (08:56)
--- NOTE | 2023-01-20 11:16 | P.PN ---
Subjective Progress Note Date: 01/20/23 Principal diagnosis: anemia, lymphocytosis In f/u today pt reports he is tolerating oral intake, no N,V, SOB, cough, constipation or diarrhea, bleeding, or pain, he is independently ambulatory. Objective - Vital Signs Vital signs: Vital Signs Temp 98.5 F 01/20/23 07:16 Pulse 72 01/20/23 08:10 Resp 18 01/20/23 07:16 BP 109/65 01/20/23 07:16 Pulse Ox 97 01/20/23 07:16 FiO2 Intake & Output 01/19/23 01/20/23 01/20/23 18:59 06:59 18:59 Intake Total 900 310 Balance 900 310 Intake: Intake, IV Titration 900 Amount Sodium Chloride 0.9% 1, 900 000 ml @ 75 mls/hr IV . [id number] [facility] Rx#:[id number] Blood Product 0 310 Rc Irr As1 Unit 0 310 [id number] Other: Voiding Method Toilet Toilet Toilet Urinal - Constitutional General appearance: Present: average body habitus, cooperative, no acute distress - EENT Eyes: Present: anicteric sclerae, EOMI ENT: Present: hearing grossly normal - Respiratory Details: resp even and unlabored at rest - Cardiovascular Details: skin warm and dry to touch, radial pulse 2+ - Peripheral edema leg Peripheral Edema: bilateral: None - Gastrointestinal General gastrointestinal: Present: soft - Integumentary Integumentary: Present: normal turgor, pale - Neurologic Neurologic: Present: CNII-XII intact - Musculoskeletal Musculoskeletal: Present: strength equal bilaterally - Psychiatric Psychiatric: Present: A&O x's 3, appropriate affect, intact judgment & insight - Labs CBC & Chem 7: 01/20/23 05:28 01/20/23 05:28 Labs: Abnormal Lab Results - Last 24 Hours (Table) 01/18/23 01/19/23 01/20/23 Range/Units 10:00 06:28 05:28 WBC 175.69 H* 142.0 H* (4.50-10.00) X 10*3/uL RBC 2.31 L 2.32 L (4.40-5.60) X 10*6/uL Hgb 6.5 H* 6.9 L* (13.0-17.0) d/dL Hct 21.0 L 20.2 L (39.6-50.0) % MCHC 31.0 L (32.0-37.0) d/dL RDW 15.2 H 15.8 H (11.5-14.5) % MPV 12.5 H (9.5-12.2) FL Blast Cells % 2 H* % Neutrophils # (Manual) 14.20 H (1.3-7.7) k/uL Lymphocytes # (Manual) 165.15 H 113.60 H (0.90-5.00) X 10*3/uL Monocytes # (Manual) 3.51 H 12.78 H (0.20-1.00) X 10*3/uL Eosinophils # (Manual) 0 L (0.04-0.35) X 10*3/uL Metamyelocytes # (Man) 1.42 H (0) k/uL Blast Cells # (Man) 2.84 H (0) k/uL NRBC/100 WBC Diff 0.54 H (0.00-0.01) X 10*3/uL Immature Plt Fraction 13.3 H (1.1-6.1) % Chloride (98-107) mmol/L Carbon Dioxide (22-30) mmol/L BUN (9-20) mg/dL Glucose (74-99) mg/dL Total Bilirubin (0.2-1.3) mg/dL Lactate Dehydrogenase (120-246) U/L Albumin (3.5-5.0) g/dL Crossmatch See Detail 01/20/23 Range/Units 05:28 WBC (4.50-10.00) X 10*3/uL RBC (4.40-5.60) X 10*6/uL Hgb (13.0-17.0) d/dL Hct (39.6-50.0) % MCHC (32.0-37.0) d/dL RDW (11.5-14.5) % MPV (9.5-12.2) FL Blast Cells % % Neutrophils # (Manual) (1.3-7.7) k/uL Lymphocytes # (Manual) (0.90-5.00) X 10*3/uL Monocytes # (Manual) (0.20-1.00) X 10*3/uL Eosinophils # (Manual) (0.04-0.35) X 10*3/uL Metamyelocytes # (Man) (0) k/uL Blast Cells # (Man) (0) k/uL NRBC/100 WBC Diff (0.00-0.01) X 10*3/uL Immature Plt Fraction (1.1-6.1) % Chloride 108 H (98-107) mmol/L Carbon Dioxide 21 L (22-30) mmol/L BUN 28 H (9-20) mg/dL Glucose 145 H (74-99) mg/dL Total Bilirubin 1.5 H (0.2-1.3) mg/dL Lactate Dehydrogenase 383 H (120-246) U/L Albumin 3.4 L (3.5-5.0) g/dL Crossmatch Assessment and Plan (1) Anemia Current Visit: Yes Status: Acute Priority: Medium Code(s): D64.9 - ANEMIA, UNSPECIFIED SNOMED Code(s): 558174352 (2) Lymphocytosis Current Visit: Yes Status: Acute Priority: High Code(s): D72.820 - LYMPHOCYTOSIS (SYMPTOMATIC) SNOMED Code(s): 50671840 Plan: Anemia -Progressive, secondary to underlying disease. -Hgb was 4.7 on admit. He has received 3 units of PRBCs, fairly appropriate response to transfusion. 1 unit of irradiated PRBCs ordered for a hemoglobin of 6.9 today. Lymphocytosis -Dr. Cruz spoke with pt primary Oncologist. Labs/presentation suggestive of disease progression. -Plans to start treatment in the next 1-2 weeks -Cont pulse dose dexamethasone for now until definitive plan. -If there is underlying hemolysis occurring, the steroids will treat that as well. Bilirubin cont to decrease and LDH is lower today. -TLS lab neg. Allopurinol was started when steroids initiated. Cont allopurinol Erx steroids and allopurinol-done Pt takes PPI at home, educated to cont to do so and to eat prior to taking steroids Per patient request, he lives closer to [place] so, he is requesting to change Oncologists. Requested records from patient's Medical Oncologist yesterday. F/U CBC on Thur in ofc. Will transfuse PRN Discussed case briefly with Attending. Pt ok from Hem/Onc standpoint to be discharged once cleared from IM and other consulting Physicians
[2023-01-20 11:57] VITALS: RESP 16
[2023-01-20 12:32] VITALS: PULSE 78
[2023-01-20 14:34] VITALS: BP 116/61; TEMP 98.2
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
== END 2023-01-20 15:45 | disposition home or self-care (01) | DRG 809 ==
LOC: EC 09:46 → 5NMEDONC 12:49
PROVIDERS: ADMIT Hospitalist; ATTEND Hospitalist
PROC: 30233N1 Transfusion of Nonautologous Red Blood Cells into Peripheral Vein, Percutaneous Approach (ICD-10-PCS; principal; 2023-01-18)
DX: D61.9 Aplastic anemia, unspecified (principal); C83.10 Mantle cell lymphoma, unspecified site; C91.10 Chronic lymphocytic leukemia of B-cell type not having achieved remission; R53.81 Other malaise; K21.9 Gastro-esophageal reflux disease without esophagitis; D69.6 Thrombocytopenia, unspecified; E78.5 Hyperlipidemia, unspecified; M06.9 Rheumatoid arthritis, unspecified; F32.A Depression, unspecified; J44.9 Chronic obstructive pulmonary disease, unspecified; G62.9 Polyneuropathy, unspecified; Z79.631 Long term (current) use of antimetabolite agent; Z79.899 Other long term (current) drug therapy; Z79.51 Long term (current) use of inhaled steroids; Z87.891 Personal history of nicotine dependence; Z87.01 Personal history of pneumonia (recurrent); Z86.16 Personal history of COVID-19
CPT/HCPCS: 36415; 80053; 81003; 82272; 82728; 83010; 83540; 83550; 83615; 83735; 84100; 84484; 84550; 85025; 85027; 85045; 85610; 85730; 86850; 86900; 86901; 86920; 88184; 88185; 93005; 94640; 96361; 96374; 99291

== ENCOUNTER 2023-02-27 12:04 | Observation (INO) | payer MEDICARE, BC ==
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
[2023-02-27] MEDS ORDERED: SODIUM CHLORIDE 0.9% 1,000 ML IV ONE (12:51)
--- NOTE | 2023-02-27 14:05 | XR ---
EXAMINATION TYPE: XR chest 2V DATE OF EXAM: 02/27/2023 COMPARISON: 01/12/2023 TECHNIQUE: PA and lateral views submitted. HISTORY: Shortness of breath FINDINGS: The lungs are clear and there is no pneumothorax, pleural effusion, or focal pneumonia. Heart size normal and no overt failure. Osseous structures demonstrate hypertrophic and degenerative changes of the spine. Surgical clips in the upper abdomen. AC joint arthropathy. Coarsened interstitium. Vague a symmetric density medial margin right lung. Suspect underlying COPD. IMPRESSION: 1. Correlate for bronchitis or interstitial pneumonitis.. 2. There is asymmetric increased density along the medial margin the right lung upper lobe. Underlyin g infiltrate or nodule not excluded.
[2023-02-27 14:32] LABS: Anisocytosis Moderate; HCT 25.8 % (39.0-53.0); Hypochromasia Slight; MCH 33.4 pg (25.0-35.0); MCHC 33.1 g/dL (31.0-37.0); Macrocytosis Moderate; Mean Platelet Volume 10.6; Platelet Count 102 k/uL (150-450); RBC 2.55 m/uL (4.30-5.90); RDW 20.1 % (11.5-15.5); WBC 13.1 k/uL (3.8-10.6)
[2023-02-27 14:42] LABS: ALT 19 U/L (4-49); African American GFR (CKD) >90 (>60 ml/min/1.73 sqM); Albumin 3.1 g/dL (3.5-5.0); Anion Gap 7 mmol/L; Blood Urea Nitrogen 21 mg/dL (9-20); Calcium 8.3 mg/dL (8.4-10.2); Carbon Dioxide 24 mmol/L (22-30); Chloride 102 mmol/L (98-107); Glucose 254 mg/dL (74-99); Non-African American GFR(CKD) >90 (>60 ml/min/1.73 sqM); Sodium 133 mmol/L (137-145); Total Bilirubin 1.1 mg/dL (0.2-1.3); Total Protein 5.8 g/dL (6.3-8.2)
[2023-02-27 14:50] LABS: AST 28 U/L (17-59); Alkaline Phosphatase 64 U/L (38-126); Potassium 4.3 mmol/L (3.5-5.1)
[2023-02-27 15:15] LABS: Lymphocytes # (M) 7.47 k/uL (1.0-4.8); Monocytes # (M) 0.39 k/uL (0-1.0); Neutrophils # (M) 5.24 k/uL (1.3-7.7); Neutrophils % (M) 40 %; Nucleated Red Blood Cells 0 /100 WBC (0-0); Total Cells Counted 100
[2023-02-27 15:44] LABS: HGB 8.5 gm/dL (13.0-17.5)
--- NOTE | 2023-02-27 16:15 | CT ---
EXAMINATION TYPE: CT angio abdomen pelvis DATE OF EXAM: 02/27/2023 COMPARISON: 11/14/2022 as well as 05/20/2022 HISTORY: RUQ pain, unexplained weightless of [address] DLP: 1737.7 mGycm CONTRAST: CTA thoracic and abdominal aorta with 3-D reconstruction is performed without Oral Contrast and with IV Contrast, patient injected with 100 mL of Isovue 370. Contrast CTA of the abdominal aorta was performed from the lung bases through the base of the pelvis. 3-D reconstruction imaging obtained at a separate workstation. CONTRAST CT ABDOMEN AND PELVIS ABDOMINAL AORTA: No evidence for abdominal aortic aneurysm. No dissection. Iliac vessels are symmet cherelle and patent. Branch vessels including the celiac, SMA and ALINA are patent as are the renal arteri es. LIVER/GB- No significant abnormality is seen. PANCREAS- No significant abnormality is seen. SPLEEN-normal spleen is not identified. Multiple soft tissue masses are redemonstrated within the lef t upper quadrant and scattered throughout the abdomen. Correlate for splenosis or adenopathy without significant change from prior studies. ADRENALS- No significant abnormality is seen. KIDNEYS/BLADDER-stable renal cystic changes noted bilaterally without solid mass. No hydronephrosis o r nephrolithiasis. BOWEL-there is rectal wall thickening with a small amount of adjacent fluid. This is nonspecific and may reflect proctitis. Ischemic change not excluded. Underlying neoplasm is also within the different ial diagnosis. Correlate clinically. Scattered sigmoid diverticula. Small and large bowel are of norm al caliber. GENITAL ORGANS: No gross abnormality seen. LYMPH NODES-multiple mesenteric lymph nodes redemonstrated measuring 1.5 cm or less. No significant c hange appreciated. OSSEOUS STRUCTURES-postoperative changes lumbar spine. OTHER- No significant abnormality is seen. IMPRESSION- 1.there is rectal wall thickening with a small amount of adjacent fluid. This is nonspecific and may reflect proctitis. Ischemic change not excluded. Underlying neoplasm is also within the differential diagnosis. Correlate clinically. 2. Multiple soft tissue masses within the left upper quadrant and scattered throughout the abdomen fe lt to reflect splenosis and less likely adenopathy. Overall appearance is stable. 3. Abdominal aorta is of normal caliber with mild atheromatous changes seen. Branch vessels are paten t.
[2023-02-27 16:51] LABS: Partial Thromboplastin Time 25.7 sec (22.0-30.0); Prothrombin Time 10.5 sec (9.0-12.0)
[2023-02-27] MEDS ORDERED: NALOXONE 0.4 MG/ML 1 ML VIAL IV PRN (17:56)
[2023-02-27] MEDS ORDERED: PANTOPRAZOLE 40 MG/10 ML VIAL IV SCH (18:15)
[2023-02-27] MEDS: SODIUM CHLORIDE 0.9% 1,000 ML IV SCH (18:53)
[2023-02-27] MEDS ORDERED: ACETAMINOPHEN TAB 500 MG TAB PO PRN (20:46)
[2023-02-27] MEDS ORDERED: ALBUTEROL HFA INHALER INHALATION PRN (20:46)
[2023-02-27] MEDS ORDERED: MONTELUKAST 10 MG TAB PO SCH (21:00)
[2023-02-27] MEDS: PANTOPRAZOLE 40 MG/10 ML VIAL IV SCH (21:18)
[2023-02-27] MEDS: PREGABALIN 100 MG CAP PO SCH (21:19)
[2023-02-27] MEDS: SYMBICORT 160-4.5 MCG INHALER INHALATION SCH (22:31)
[2023-02-28 02:22] VITALS: RESP 18
[2023-02-28 07:11] LABS: Anisocytosis Slight; Basophils % (A) 0 %; Eosinophils % (A) 0 %; HCT 26.5 % (39.0-53.0); HGB 8.5 gm/dL (13.0-17.5); Hypochromasia Moderate; Lymphocytes # (A) 7.7 k/uL (1.0-4.8); Lymphocytes % (A) 50 %; MCH 33.1 pg (25.0-35.0); MCHC 32.3 g/dL (31.0-37.0); MCV 102.4 fL (80.0-100.0); Macrocytosis Marked; Mean Platelet Volume 10.4; Monocytes # (A) 0.5 k/uL (0-1.0); Monocytes % (A) 3 %; Neutrophils # (A) 6.9 k/uL (1.3-7.7); Neutrophils % (A) 45 %; Platelet Count 131 k/uL (150-450); RBC 2.58 m/uL (4.30-5.90); RDW 19.7 % (11.5-15.5); WBC 15.4 k/uL (3.8-10.6)
[2023-02-28] MEDS: SYMBICORT 160-4.5 MCG INHALER INHALATION SCH (08:16)
[2023-02-28] MEDS ORDERED: allopurinoL 100 MG TAB PO SCH (09:00)
[2023-02-28] MEDS ORDERED: SERTRALINE 100 MG TAB PO SCH (09:00)
[2023-02-28 09:36] LABS: BUN/Creat Ratio 31.17 Ratio (12.00-20.00); Blood Urea Nitrogen 18.7 mg/dL (9.0-27.0); Calcium 8.7 mg/dL (8.7-10.3); Carbon Dioxide 24.7 mmol/L (21.6-31.8); Chloride 106 mmol/L (96-109); Glucose 154 mg/dL (70-110); Sodium 141 mmol/L (135-145)
[2023-02-28] MEDS: PREGABALIN 100 MG CAP PO SCH (10:32)
[2023-02-28] MEDS: SODIUM CHLORIDE 0.9% 1,000 ML IV SCH (10:32)
[2023-02-28] MEDS: PANTOPRAZOLE 40 MG/10 ML VIAL IV SCH (10:32)
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
[2023-02-28 13:41] VITALS: BP 120/67; PULSE 75; TEMP 98.1
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
== END 2023-02-28 17:27 | disposition home or self-care (01) ==
LOC: EC 12:04 → 5NMEDONC 18:04
PROVIDERS: ADMIT Hospitalist; ATTEND Hospitalist
DX: K92.1 Melena (principal); D64.9 Anemia, unspecified; K62.89 Other specified diseases of anus and rectum; R10.10 Upper abdominal pain, unspecified; C91.10 Chronic lymphocytic leukemia of B-cell type not having achieved remission; C83.10 Mantle cell lymphoma, unspecified site; K21.9 Gastro-esophageal reflux disease without esophagitis; E78.5 Hyperlipidemia, unspecified; M06.9 Rheumatoid arthritis, unspecified; J44.9 Chronic obstructive pulmonary disease, unspecified; G62.9 Polyneuropathy, unspecified; R59.0 Localized enlarged lymph nodes; F32.A Depression, unspecified; Z79.51 Long term (current) use of inhaled steroids; Z79.899 Other long term (current) drug therapy; Z79.631 Long term (current) use of antimetabolite agent; Z86.010 Personal history of colon polyps; Z86.19 Personal history of other infectious and parasitic diseases; Z87.891 Personal history of nicotine dependence; Z87.828 Personal history of other (healed) physical injury and trauma; Z90.81 Acquired absence of spleen; Z87.01 Personal history of pneumonia (recurrent); Z98.890 Other specified postprocedural states; Z82.5 Family history of asthma and other chronic lower respiratory diseases
CPT/HCPCS: 96376; 96361; 96374; 99285; 36415; 94640; 93005; 86900; 86901; 80053; 80048; 83605; 85025 ×2; 85610; 85730; 86850; 82272; 71046; 74174; G0378 ×2; C9113 ×2; Q9967

== ENCOUNTER 2023-03-13 13:33 | Inpatient (IN) | payer MEDICARE, BC ==
[2023-03-13] MEDS ORDERED: SODIUM CHLORIDE 0.9% 1,000 ML IV STA (14:15)
[2023-03-13 14:47] LABS: Anisocytosis Slight; Basophils % (A) 0 %; Eosinophils % (A) 0 %; HCT 25.8 % (39.0-53.0); HGB 8.4 gm/dL (13.0-17.5); Hypochromasia Slight; Lymphocytes # (A) 0.2 k/uL (1.0-4.8); Lymphocytes % (A) 5 %; MCH 32.6 pg (25.0-35.0); MCHC 32.5 g/dL (31.0-37.0); MCV 100.4 fL (80.0-100.0); Macrocytosis Moderate; Mean Platelet Volume 10.2; Monocytes # (A) 0.2 k/uL (0-1.0); Monocytes % (A) 4 %; Neutrophils # (A) 4.1 k/uL (1.3-7.7); Neutrophils % (A) 89 %; Platelet Count 185 k/uL (150-450); RBC 2.56 m/uL (4.30-5.90); RDW 19.6 % (11.5-15.5); WBC 4.6 k/uL (3.8-10.6)
[2023-03-13 14:51] LABS: ALT 15 U/L (4-49); AST 25 U/L (17-59); African American GFR (CKD) >90 (>60 ml/min/1.73 sqM); Albumin 2.8 g/dL (3.5-5.0); Alkaline Phosphatase 60 U/L (38-126); Anion Gap 7 mmol/L; Blood Urea Nitrogen 11 mg/dL (9-20); Calcium 8.3 mg/dL (8.4-10.2); Carbon Dioxide 25 mmol/L (22-30); Chloride 101 mmol/L (98-107); Glucose 106 mg/dL (74-99); Magnesium 1.9 mg/dL (1.6-2.3); Non-African American GFR(CKD) >90 (>60 ml/min/1.73 sqM); Phosphorus 4.2 mg/dL (2.5-4.5); Potassium 3.8 mmol/L (3.5-5.1); Sodium 133 mmol/L (137-145); Total Bilirubin 0.8 mg/dL (0.2-1.3); Total Protein 5.3 g/dL (6.3-8.2)
[2023-03-13 15:00] LABS: Partial Thromboplastin Time 25.7 sec (22.0-30.0); Prothrombin Time 10.7 sec (10.0-12.5)
--- NOTE | 2023-03-13 15:02 | XR ---
EXAMINATION TYPE: XR chest 2V DATE OF EXAM: 03/13/2023 COMPARISON: 02/27/2023 HISTORY: Shortness of breath TECHNIQUE: Frontal and lateral views of the chest are obtained. FINDINGS: Scattered senescent parenchymal changes noted. Hyperinflation compatible with COPD. No evidence for infiltrate. No evidence for atelectasis. Heart size is stable. Mediastinal structures are stable and grossly unremarkable. No evidence for hilar prominence. Degenerative changes dorsal spine. IMPRESSION: 1. No evidence for acute pulmonary disease.
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
[2023-03-13 15:56] LABS: Appearance,Urine Clear (Clear); Bilirubin,Urine Negative (Negative); Blood,Urine Negative (Negative); Color,Urine Colorless; Glucose,Urine (UA) Negative (Negative); Ketones,Urine Negative (Negative); Leukocyte Esterase,Urine Negative (Negative); Nitrite,Urine Negative (Negative); Protein,Urine Negative (Negative); Urobilinogen,Urine <2.0 mg/dL (<2.0)
[2023-03-13] MEDS ORDERED: CEFEPIME 2 GM in SODIUM CHLORIDE 0.9% 100 ML IVPB STA (16:03)
[2023-03-13] MEDS ORDERED: VANCOMYCIN IV PER PHARMACY 1 EACH MISC MISCELLANE PRN (16:03)
[2023-03-13] MEDS ORDERED: NALOXONE 0.4 MG/ML 1 ML VIAL IV PRN (16:05)
[2023-03-13] MEDS ORDERED: ONDANSETRON 4 MG TAB PO PRN (16:08)
[2023-03-13] MEDS ORDERED: FLUTICASONE 50MCG/SPRAY NASAL 16GM EA NOSTRIL PRN (16:08)
[2023-03-13] MEDS ORDERED: ALBUTEROL NEBULIZED 2.5 MG/3 ML INHALATION PRN (16:08)
[2023-03-13] MEDS ORDERED: VANCOMYCIN 1,500 MG in SODIUM CHLORIDE 0.9% 500 ML 500 ML IVPB ONE (17:00)
[2023-03-13] MEDS: SODIUM CHLORIDE 0.9% 1,000 ML IV SCH (17:07)
[2023-03-13] MEDS ORDERED: CALCIUM CARBONATE 500 MG CHEWABLE PO PRN (18:51)
[2023-03-13] MEDS ORDERED: ALPRAZolam 0.25 MG TAB PO PRN (18:51)
[2023-03-13] MEDS ORDERED: MELATONIN 3 MG TABLET PO PRN (18:51)
[2023-03-13] MEDS ORDERED: LACTULOSE 20 GM/30 ML CUP PO PRN (18:51)
[2023-03-13] MEDS: ACETAMINOPHEN TAB 500 MG TAB PO PRN (18:55)
[2023-03-13] MEDS: SYMBICORT 160-4.5 MCG INHALER INHALATION SCH (19:46)
[2023-03-13] MEDS: MONTELUKAST 10 MG TAB PO SCH (20:56)
[2023-03-13] MEDS: PREGABALIN 100 MG CAP PO SCH (20:56)
[2023-03-13] MEDS: ENOXAPARIN 40 MG/0.4 ML SYRINGE SQ SCH (20:57)
[2023-03-14] MEDS: CEFEPIME 2 GM in SODIUM CHLORIDE 0.9% 100 ML IVPB SCH ×3 (00:38→17:04)
[2023-03-14] MEDS: VANCOMYCIN 1,250 MG in SODIUM CHLORIDE 0.9% 250 ML IVPB SCH ×3 (03:13→19:52)
[2023-03-14] MEDS: ACETAMINOPHEN TAB 500 MG TAB PO PRN ×2 (03:27→17:40)
[2023-03-14] MEDS: SODIUM CHLORIDE 0.9% 1,000 ML IV SCH ×2 (05:43→21:07)
[2023-03-14] MEDS: SYMBICORT 160-4.5 MCG INHALER INHALATION SCH ×2 (08:14→18:49)
[2023-03-14] MEDS: ENOXAPARIN 40 MG/0.4 ML SYRINGE SQ SCH (08:55)
[2023-03-14] MEDS: SERTRALINE 100 MG TAB PO SCH (08:56)
[2023-03-14] MEDS: allopurinoL 100 MG TAB PO SCH (08:56)
[2023-03-14] MEDS: PANTOPRAZOLE 40 MG TABLET PO SCH (08:56)
[2023-03-14] MEDS: LORATADINE 10 MG TAB PO SCH (08:56)
[2023-03-14] MEDS: PREGABALIN 100 MG CAP PO SCH ×2 (08:56→21:06)
[2023-03-14] MEDS: FOLIC ACID 1 MG TAB PO SCH (08:56)
[2023-03-14] MEDS: CHOLECALCIFEROL 25 MCG (1000 IU) TABLET PO SCH (08:56)
[2023-03-14] MEDS ORDERED: NON FORMULARY DRUG (Turmeric Root Extract [Turmeric] 500 MG Tablet) PO SCH (09:00)
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
[2023-03-14] MEDS: MONTELUKAST 10 MG TAB PO SCH (21:06)
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
[2023-03-15] MEDS ORDERED: VANCOMYCIN TROUGH DUE 1 EACH MISC MISCELLANE ONE (02:00)
[2023-03-15 02:43] LABS: Anisocytosis Slight; Basophils % (A) 0 %; Eosinophils # (A) 0.1 k/uL (0-0.7); Eosinophils % (A) 1 %; Hypochromasia Moderate; Lymphocytes # (A) 0.2 k/uL (1.0-4.8); Lymphocytes % (A) 4 %; MCH 32.1 pg (25.0-35.0); MCHC 31.2 g/dL (31.0-37.0); Macrocytosis Marked; Mean Platelet Volume 9.1; Monocytes # (A) 0.2 k/uL (0-1.0); Monocytes % (A) 4 %; Neutrophils # (A) 5.2 k/uL (1.3-7.7); Neutrophils % (A) 91 %; Platelet Count 231 k/uL (150-450); RBC 1.86 m/uL (4.30-5.90); RDW 19.3 % (11.5-15.5); WBC 5.7 k/uL (3.8-10.6)
[2023-03-15 02:48] LABS: African American GFR (CKD) >90 (>60 ml/min/1.73 sqM); Non-African American GFR(CKD) >90 (>60 ml/min/1.73 sqM)
[2023-03-15 02:52] LABS: ALT 15 U/L (4-49); AST 22 U/L (17-59); African American GFR (CKD) >90 (>60 ml/min/1.73 sqM); Albumin 2.6 g/dL (3.5-5.0); Albumin/Globulin Ratio 1.1; Alkaline Phosphatase 51 U/L (38-126); Anion Gap 6 mmol/L; Blood Urea Nitrogen 9 mg/dL (9-20); Calcium 8.1 mg/dL (8.4-10.2); Carbon Dioxide 25 mmol/L (22-30); Chloride 106 mmol/L (98-107); Globulin 2.3 g/dL; Glucose 97 mg/dL (74-99); Non-African American GFR(CKD) >90 (>60 ml/min/1.73 sqM); Potassium 3.8 mmol/L (3.5-5.1); Sodium 137 mmol/L (137-145); Total Bilirubin 0.9 mg/dL (0.2-1.3); Total Protein 4.9 g/dL (6.3-8.2)
[2023-03-15] MEDS: ACETAMINOPHEN TAB 500 MG TAB PO PRN ×3 (02:56→18:29)
[2023-03-15] MEDS: VANCOMYCIN 1,250 MG in SODIUM CHLORIDE 0.9% 250 ML IVPB SCH ×4 (02:57→20:43)
[2023-03-15 03:09] LABS: HCT 19.2 % (39.0-53.0)
[2023-03-15 03:22] LABS: C Reactive Protein 13.5 mg/dL (<1.0)
[2023-03-15 03:40] LABS: Polychromasia Present
[2023-03-15] MEDS: SYMBICORT 160-4.5 MCG INHALER INHALATION SCH ×2 (08:07→18:43)
[2023-03-15] MEDS: FOLIC ACID 1 MG TAB PO SCH (08:41)
[2023-03-15] MEDS: PREGABALIN 100 MG CAP PO SCH ×2 (08:41→20:42)
[2023-03-15] MEDS: ENOXAPARIN 40 MG/0.4 ML SYRINGE SQ SCH (08:41)
[2023-03-15] MEDS: PANTOPRAZOLE 40 MG TABLET PO SCH (08:42)
[2023-03-15] MEDS: SERTRALINE 100 MG TAB PO SCH (08:42)
[2023-03-15] MEDS: CHOLECALCIFEROL 25 MCG (1000 IU) TABLET PO SCH (08:42)
[2023-03-15] MEDS: LORATADINE 10 MG TAB PO SCH (08:42)
[2023-03-15] MEDS: allopurinoL 100 MG TAB PO SCH (08:42)
[2023-03-15] MEDS: SODIUM CHLORIDE 0.9% 1,000 ML IV SCH ×2 (10:53→20:49)
[2023-03-15] MEDS: CEFEPIME 2 GM in SODIUM CHLORIDE 0.9% 100 ML IVPB SCH ×5 (12:06→20:43)
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
--- NOTE | 2023-03-15 19:29 | P.PN ---
Subjective Progress Note Date: 03/15/23 Principal diagnosis: Fever Patient is a 67-year-old male with a past medical history infection for mental cell lymphoma, recently started on chemotherapy presenting to the hospital with fever with initial negative work-up. On today's evaluation that is 03/15/2023 patient did have a resolution of his fever and is afebrile this morning the patient is breathing comfortably on room air mention headache is improved no chest pain shortness of breath or cough no abdominal pain or diarrhea. Patient did have white count of 5.7 hemoglobin of 6.0 CRP is 13.5 Pro-Allen 0.16 cultures are currently pending Objective - Vital Signs Vital signs: Vital Signs Temp 98.8 F 03/15/23 11:57 Pulse 78 03/15/23 11:57 Resp 16 03/15/23 11:57 BP 100/59 03/15/23 11:57 Pulse Ox 93 L 03/15/23 11:57 FiO2 Intake & Output 03/14/23 03/15/23 03/15/23 18:59 06:59 18:59 Intake Total 180 310 Output Total 550 350 Balance -370 -350 310 Intake: Oral 180 Blood Product 310 Rc Irr As1 Unit 310 [id number] Output: Urine 550 350 Other: Voiding Method Toilet Urinal - Exam GENERAL DESCRIPTION: Elderly male lying in bed in no distress RESPIRATORY SYSTEM: Unlabored breathing , decreased breath sounds at bases HEART: S1 S2 regular rate and rhythm ,no loud murmurs ABDOMEN: Soft , no tenderness EXTREMITIES: No edema feet - Labs CBC & Chem 7: 03/15/23 02:18 03/15/23 02:18 Labs: Abnormal Lab Results - Last 24 Hours (Table) 03/15/23 03/15/23 03/15/23 Range/Units 02:18 02:18 02:18 RBC 1.86 L (4.30-5.90) m/uL Hgb 6.0 L* D (13.0-17.5) gm/dL Hct 19.2 L* (39.0-53.0) % MCV 103.0 H (80.0-100.0) fL RDW 19.3 H (11.5-15.5) % Lymphocytes # 0.2 L (1.0-4.8) k/uL Macrocytosis Marked A Creatinine 0.57 L (0.66-1.25) mg/dL Calcium (8.4-10.2) mg/dL C-Reactive Protein (<1.0) mg/dL Total Protein (6.3-8.2) g/dL Albumin (3.5-5.0) g/dL Procalcitonin 0.16 H (0.02-0.09) ng/mL Crossmatch 03/15/23 03/15/23 Range/Units 02:18 03:53 RBC (4.30-5.90) m/uL Hgb (13.0-17.5) gm/dL Hct (39.0-53.0) % MCV (80.0-100.0) fL RDW (11.5-15.5) % Lymphocytes # (1.0-4.8) k/uL Macrocytosis Creatinine 0.59 L (0.66-1.25) mg/dL Calcium 8.1 L (8.4-10.2) mg/dL C-Reactive Protein 13.5 H (<1.0) mg/dL Total Protein 4.9 L (6.3-8.2) g/dL Albumin 2.6 L (3.5-5.0) g/dL Procalcitonin (0.02-0.09) ng/mL Crossmatch See Detail Microbiology - Last 24 Hours (Table) 03/13/23 16:31 Nasal Screen MRSA/MSSA - Final Nasal Swab 03/13/23 14:21 Blood Culture - Preliminary Blood 03/13/23 14:21 Blood Culture - Preliminary Blood Assessment and Plan (1) Fever Current Visit: Yes Status: Acute Priority: High Code(s): R50.9 - FEVER, UNSPECIFIED SNOMED Code(s): 516903635 Plan: 1patient present to the hospital with weakness and fever in this patient who do have a history of mantle cell lymphoma with a recent first chemotherapy on 03/04/2023 presented to hospital with weakness confusion and a fever, patient initial work-up with a negative UA chest x-ray lactic acid was normal CT abdominal pelvis did shows abnormality to the right upper quadrant and ventral hernia, with concern for fever possible related to his lymphoma to be the likely etiology underlying infection less likely but nontender excluded 2the patient CRP is 13.5 however procalcitonin is 0.16 cultures are currently pending. 3we will continue patient on vancomycin and cefepime while waiting for the culture to finalize and monitor clinical course closely Dictation was produced using [employer] dictation software. please excuse any grammatical, word or spelling errors.
[2023-03-15] MEDS: MONTELUKAST 10 MG TAB PO SCH (20:48)
[2023-03-16] MEDS: VANCOMYCIN 1,250 MG in SODIUM CHLORIDE 0.9% 250 ML IVPB SCH ×3 (02:24→18:06)
[2023-03-16] MEDS: CEFEPIME 2 GM in SODIUM CHLORIDE 0.9% 100 ML IVPB SCH ×3 (03:31→21:03)
[2023-03-16 07:17] LABS: Anisocytosis Slight; Basophils % (A) 0 %; Eosinophils # (A) 0.1 k/uL (0-0.7); Eosinophils % (A) 1 %; Hypochromasia Moderate; Lymphocytes # (A) 0.2 k/uL (1.0-4.8); Lymphocytes % (A) 4 %; MCH 32.5 pg (25.0-35.0); MCHC 32.5 g/dL (31.0-37.0); MCV 100.1 fL (80.0-100.0); Macrocytosis Moderate; Mean Platelet Volume 9.5; Monocytes # (A) 0.2 k/uL (0-1.0); Monocytes % (A) 4 %; Neutrophils # (A) 4.9 k/uL (1.3-7.7); Neutrophils % (A) 91 %; Platelet Count 220 k/uL (150-450); Poikilocytosis Slight; RDW 19.1 % (11.5-15.5); WBC 5.4 k/uL (3.8-10.6)
[2023-03-16 07:23] LABS: ALT 15 U/L (4-49); AST 24 U/L (17-59); African American GFR (CKD) >90 (>60 ml/min/1.73 sqM); Albumin 2.8 g/dL (3.5-5.0); Albumin/Globulin Ratio 1.1; Alkaline Phosphatase 51 U/L (38-126); Anion Gap 6 mmol/L; Blood Urea Nitrogen 9 mg/dL (9-20); Calcium 8.3 mg/dL (8.4-10.2); Carbon Dioxide 27 mmol/L (22-30); Chloride 106 mmol/L (98-107); Globulin 2.5 g/dL; Glucose 87 mg/dL (74-99); Non-African American GFR(CKD) >90 (>60 ml/min/1.73 sqM); Potassium 3.5 mmol/L (3.5-5.1); Sodium 139 mmol/L (137-145); Total Bilirubin 1.2 mg/dL (0.2-1.3); Total Protein 5.3 g/dL (6.3-8.2)
[2023-03-16 07:49] LABS: HGB 8.5 gm/dL (13.0-17.5)
[2023-03-16] MEDS: SYMBICORT 160-4.5 MCG INHALER INHALATION SCH ×2 (08:17→18:27)
[2023-03-16] MEDS ORDERED: IV FLUID CONTINUATION 1,000 ML IV ONE ×2 (08:57)
[2023-03-16] MEDS ORDERED: PROPOFOL 10 MG/ML 20 ML VIAL IV ONE (09:00)
[2023-03-16] MEDS: PREGABALIN 100 MG CAP PO SCH ×2 (09:43→21:02)
[2023-03-16] MEDS: CHOLECALCIFEROL 25 MCG (1000 IU) TABLET PO SCH (09:43)
[2023-03-16] MEDS: ENOXAPARIN 40 MG/0.4 ML SYRINGE SQ SCH (09:43)
[2023-03-16] MEDS: SERTRALINE 100 MG TAB PO SCH (09:43)
[2023-03-16] MEDS: LORATADINE 10 MG TAB PO SCH (09:43)
[2023-03-16] MEDS: FOLIC ACID 1 MG TAB PO SCH (09:43)
[2023-03-16] MEDS: allopurinoL 100 MG TAB PO SCH (09:43)
[2023-03-16] MEDS: SODIUM CHLORIDE 0.9% 1,000 ML IV SCH (09:43)
[2023-03-16] MEDS: PANTOPRAZOLE 40 MG TABLET PO SCH ×2 (09:43→22:47)
--- NOTE | 2023-03-16 09:43 | P.PCN ---
Date of Procedure: 03/16/23 Description of Procedure: PREOPERATIVE DIAGNOSIS: Acute blood loss anemia Status post blood transfusions Anticoagulant use POSTOPERATIVE DIAGNOSIS: Gastroesophageal reflux disease Gastritis OPERATION: Esophagogastroduodenoscopy with biopsies of esophagus, duodenum, antrum SURGEON: Raven Zheng MD ANESTHESIA: MAC. INDICATIONS: The patient is a 67-year-old male who presents with acute blood loss anemia status post blood transfusion 2 units in 24 hours. Reports epigastric abdominal pain for gastritis. Benefits and risks of the procedure were described. Informed consent was obtained. DESCRIPTION: The patient was brought into the endoscopy suite and laid in the left lateral decubitus position. An Olympus gastroscope was passed along the posterior oropharynx down to the distal esophagus where the squamocolumnar junction was encountered at 40 cm from the incisors. The stomach was entered and no bile reflux was found. Additional findings are listed below. The first through third portion of the duodenum was examined with biopsy obtained. Retroflexion of the scope confirmed Hill grade 3 lower esophageal valve. The squamocolumnar junction demonstrated LA grade B erosive esophagitis. The stomach was desufflated. The patient tolerated the procedure well. FINDINGS: Squamocolumnar junction 40 cm from the incisors. Diaphragmatic hiatus at 40 cm. Hill grade 3 lower esophageal valve. LA grade B erosive esophagitis. Biopsies obtained of duodenum Biopsies obtained of esophagus Biopsy obtained of the antrum Moderate tissue within gastric cardia of unclear etiology with biopsies obtained RECOMMENDATIONS: Recommend colonoscopy for source of bleeding
--- NOTE | 2023-03-16 09:43 | MR ---
EXAMINATION TYPE: MR brain wo/w con DATE OF EXAM: 03/16/2023 COMPARISON: None HISTORY: Hx of lymphoma, confusion, falls CONTRAST: Performed utilizing 7.5 mL intravenous Gadavist gadolinium contrast. TECHNIQUE: Multiplanar, multiecho imaging on a 3.0 Brinda magnet is performed through the brain. Stud y is performed within 24 hours of arrival to the hospital. The craniovertebral junction is normal. The pituitary is normal. Diffusion-weighted imaging is performed. No abnormal hyperintensity is present to suggest an acute i ntracranial infarct or acute ischemic change. There is a punctate area of increased signal on inversion recovery and T2-weighted sequences within t he posterior left frontal lobe within the centrum semiovale measuring 0.4 cm. Some mild right. Ventri cular white matter change may be present measuring 0.4 cm. Small area of increased signal may be with in the left basal ganglion . Findings are nonspecific but can be related to microvascular ischemic ch farhan, migraine headaches and vasculitis could be considered. No abnormal enhancement is evident. Typical masslike area with vasogenic edema is not identified to suggest underlying lymphoma this time. Close monitoring is recommended. Ventricles and sulci are appropriate for the patient age. IMPRESSION: 1. Couple of small nonspecific white matter changes not out of proportion to the patient's age. Findi ngs likely related to chronic white matter ischemic changes. 2. No suspicious changes to suggest metastatic lymphoma at this time. Close monitoring can be perform ed.
--- NOTE | 2023-03-16 17:11 | P.PN ---
Subjective Progress Note Date: 03/16/23 Principal diagnosis: Fever, confusion. On treatment for mantle cell lymphoma In follow-up today patient's is at the bedside, she reports a significant improvement in his mental status. Patient reports that he can walk to the restroom without feeling like he is dizzy or going to fall. Patient is status post 1 unit of blood for hemoglobin of 6.9, hemoglobin 8.5 today. Patient is having an EGD today. MRI of the brain is complete pending results. Patient denies any other pains, no pain, nausea or vomiting, temp was 100.7F most recently. Objective - Vital Signs Vital signs: Vital Signs Temp 98.7 F 03/16/23 12:37 Pulse 77 03/16/23 12:37 Resp 18 03/16/23 12:37 BP 105/57 03/16/23 12:37 Pulse Ox 96 03/16/23 12:37 FiO2 Intake & Output 03/15/23 03/16/23 03/16/23 18:59 06:59 18:59 Intake Total 310 118 200 Output Total 700 Balance 310 -582 200 Intake: IV 200 Oral 118 Blood Product 310 Rc Irr As1 Unit 310 [id number] Output: Urine 700 Other: Voiding Method Toilet Toilet Urinal Urinal # Voids 1 2 # Bowel Movements 1 - Constitutional General appearance: Present: average body habitus, cooperative, no acute distress - EENT Eyes: Present: anicteric sclerae, EOMI ENT: Present: hearing grossly normal - Respiratory Details: Respirations even and unlabored at rest - Cardiovascular Details: Skin warm and dry to the touch - Peripheral edema leg Peripheral Edema: bilateral: None - Integumentary Integumentary: Present: normal - Neurologic Neurologic: Present: CNII-XII intact (Grossly) - Musculoskeletal Musculoskeletal: Present: strength equal bilaterally - Psychiatric Psychiatric: Present: A&O x's 3, appropriate affect, intact judgment & insight - Labs CBC & Chem 7: 03/16/23 05:32 03/16/23 05:32 Labs: Abnormal Lab Results - Last 24 Hours (Table) 03/15/23 03/15/23 03/16/23 Range/Units 19:53 19:53 05:32 RBC (4.30-5.90) m/uL Hgb (13.0-17.5) gm/dL Hct (39.0-53.0) % MCV (80.0-100.0) fL RDW (11.5-15.5) % Lymphocytes # (1.0-4.8) k/uL Retic Count 4.0 H (0.5-2.0) % Creatinine 0.46 L (0.66-1.25) mg/dL Calcium 8.3 L (8.4-10.2) mg/dL Lactate Dehydrogenase 309 H (120-246) U/L Total Protein 5.3 L (6.3-8.2) g/dL Albumin 2.8 L (3.5-5.0) g/dL 03/16/23 Range/Units 05:32 RBC 2.60 L (4.30-5.90) m/uL Hgb 8.5 L D (13.0-17.5) gm/dL Hct 26.0 L (39.0-53.0) % MCV 100.1 H (80.0-100.0) fL RDW 19.1 H (11.5-15.5) % Lymphocytes # 0.2 L (1.0-4.8) k/uL Retic Count (0.5-2.0) % Creatinine (0.66-1.25) mg/dL Calcium (8.4-10.2) mg/dL Lactate Dehydrogenase (120-246) U/L Total Protein (6.3-8.2) g/dL Albumin (3.5-5.0) g/dL Microbiology - Last 24 Hours (Table) 03/13/23 14:21 Blood Culture - Preliminary Blood 03/13/23 14:21 Blood Culture - Preliminary Blood 03/14/23 17:06 Urine Culture - Final Urine,Voided - Imaging and Cardiology MRI - head: report reviewed (White matter changes mostly consistent with patient's age, no other unusual findings, no vasogenic edema, nothing to suggest mantle cell lymphoma with in the CSF or RAIL GRINDER) Assessment and Plan (1) Fever Current Visit: Yes Status: Acute Priority: High Code(s): R50.9 - FEVER, UNSPECIFIED SNOMED Code(s): 550721331 (2) Mantle cell lymphoma Current Visit: Yes Status: Acute Priority: High Code(s): C83.10 - MANTLE CELL LYMPHOMA, UNSPECIFIED SITE SNOMED Code(s): 623669614 (3) CLL (chronic lymphocytic leukemia) Current Visit: No Status: Chronic Priority: Medium Code(s): C91.10 - CHRONIC LYMPHOCYTIC LEUK OF B-CELL TYPE NOT ACHIEVE REMIS SNOMED Code(s): 56268902 (4) Anemia Current Visit: Yes Status: Acute Priority: Medium Code(s): D64.9 - ANEMIA, UNSPECIFIED SNOMED Code(s): 900010912 Plan: Fever -Temp 100.7 Fahrenheit yesterday -Pancultures pending -Empiric antibiotics continue per Infectious Disease Mantle cell lymphoma -Status post first cycle of Rituxan/Treanda -When patient seen in the office last week for treatment f/u, MRI of the brain was ordered due to patient being confused and falls-his VS were stable, no other symptoms. Confusion persisted so, brought him to the hospital. MRI was completed. MRI reported/resulted after patient seen today. Nothing to suggest lymphoma in the RAIL GRINDER or CSF. Wiil review with pt and tomorrow. _Patient's symptoms have significantly improved since being on antibiotics. No further testing at this time. If patient neurological symptoms return or progress, may have to consider LP and CSF evaluation. Chemotherapy and disease related anemia -Patient hemoglobin was 6 yesterday on lab check, given 1 unit of packed red blood cells, hemoglobin is 8.5 today. -Previous anemia workup was consistent with anemia of inflammation. No iron or specific supplement at this time -With acute infection superimposed on disease and first cycle of treatment, counts will take a little longer to recover -Transfuse for hemoglobin less than 7 Surgery has seen patient for abdominal pain. EGD today. Pending results and recommendations. attests: I seen and examined patient, performed H&P, developed impression and plan of care. Discussed with dictator. Agree with documentation, dictated as a scribe.
[2023-03-16] MEDS: MONTELUKAST 10 MG TAB PO SCH (21:02)
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
[2023-03-17] MEDS: SODIUM CHLORIDE 0.9% 1,000 ML IV SCH ×2 (02:51→17:02)
[2023-03-17] MEDS: CEFEPIME 2 GM in SODIUM CHLORIDE 0.9% 100 ML IVPB SCH ×3 (03:56→21:40)
[2023-03-17] MEDS ORDERED: MAGNESIUM HYDROXIDE 2,400 MG/30 ML CUP PO ONE (08:00)
[2023-03-17] MEDS ORDERED: PEG 3350 (420 GM/BTL) + LYTES 4,000 ML BOTTLE PO ONE (08:00)
[2023-03-17] MEDS: SYMBICORT 160-4.5 MCG INHALER INHALATION SCH ×2 (08:16→20:53)
[2023-03-17] MEDS: SERTRALINE 100 MG TAB PO SCH (08:23)
[2023-03-17] MEDS: FOLIC ACID 1 MG TAB PO SCH (08:23)
[2023-03-17] MEDS: LORATADINE 10 MG TAB PO SCH (08:23)
[2023-03-17] MEDS: LACTULOSE 20 GM/30 ML CUP PO SCH ×2 (08:23→21:46)
[2023-03-17] MEDS: CHOLECALCIFEROL 25 MCG (1000 IU) TABLET PO SCH (08:23)
[2023-03-17] MEDS: PREGABALIN 100 MG CAP PO SCH ×2 (08:24→21:47)
[2023-03-17] MEDS: ENOXAPARIN 40 MG/0.4 ML SYRINGE SQ SCH (08:24)
[2023-03-17] MEDS: PANTOPRAZOLE 40 MG TABLET PO SCH ×2 (08:24→17:33)
[2023-03-17] MEDS: allopurinoL 100 MG TAB PO SCH (08:24)
[2023-03-17 09:34] LABS: African American GFR (CKD) >90 (>60 ml/min/1.73 sqM); Non-African American GFR(CKD) >90 (>60 ml/min/1.73 sqM)
[2023-03-17] MEDS ORDERED: VANCOMYCIN TROUGH DUE 1 EACH MISC MISCELLANE ONE (10:00)
--- NOTE | 2023-03-17 13:21 | P.PN ---
Subjective Progress Note Date: 03/16/23 Principal diagnosis: Fever Patient is a 67-year-old male with a past medical history infection for mental cell lymphoma, recently started on chemotherapy presenting to the hospital with fever with initial negative work-up. On today's evaluation that is 03/16/2023, the patient did have improvement in the future pattern this morning temperature of 99.7F, the patient is breathing comfortably on room air without the need for supplemental oxygen and no shortness of breath, the patient denies having any chest pain or cough, patient denies nausea/vomiting /diarrhea and no abdominal pain, Patient did have white count of 5.4 hemoglobin of 8.5 CRP is 13.5 Pro-Allen 0.16 cultures are currently pending Objective - Vital Signs Vital signs: Vital Signs Temp 98.7 F 03/16/23 12:37 Pulse 77 03/16/23 12:37 Resp 18 03/16/23 12:37 BP 105/57 03/16/23 12:37 Pulse Ox 96 03/16/23 12:37 FiO2 Intake & Output 03/15/23 03/16/23 03/16/23 18:59 06:59 18:59 Intake Total 310 118 200 Output Total 700 Balance 310 -582 200 Intake: IV 200 Oral 118 Blood Product 310 Rc Irr As1 Unit 310 [id number] Output: Urine 700 Other: Voiding Method Toilet Toilet Urinal Urinal # Voids 1 2 # Bowel Movements 1 - Exam GENERAL DESCRIPTION: Elderly male lying in bed in no distress RESPIRATORY SYSTEM: Unlabored breathing , decreased breath sounds at bases HEART: S1 S2 regular rate and rhythm ,no loud murmurs ABDOMEN: Soft , no tenderness EXTREMITIES: No edema feet - Labs CBC & Chem 7: 03/16/23 05:32 03/17/23 08:51 Labs: Abnormal Lab Results - Last 24 Hours (Table) 03/15/23 03/15/23 03/16/23 Range/Units 19:53 19:53 05:32 RBC (4.30-5.90) m/uL Hgb (13.0-17.5) gm/dL Hct (39.0-53.0) % MCV (80.0-100.0) fL RDW (11.5-15.5) % Lymphocytes # (1.0-4.8) k/uL Retic Count 4.0 H (0.5-2.0) % Creatinine 0.46 L (0.66-1.25) mg/dL Calcium 8.3 L (8.4-10.2) mg/dL Lactate Dehydrogenase 309 H (120-246) U/L Total Protein 5.3 L (6.3-8.2) g/dL Albumin 2.8 L (3.5-5.0) g/dL 03/16/23 Range/Units 05:32 RBC 2.60 L (4.30-5.90) m/uL Hgb 8.5 L D (13.0-17.5) gm/dL Hct 26.0 L (39.0-53.0) % MCV 100.1 H (80.0-100.0) fL RDW 19.1 H (11.5-15.5) % Lymphocytes # 0.2 L (1.0-4.8) k/uL Retic Count (0.5-2.0) % Creatinine (0.66-1.25) mg/dL Calcium (8.4-10.2) mg/dL Lactate Dehydrogenase (120-246) U/L Total Protein (6.3-8.2) g/dL Albumin (3.5-5.0) g/dL Microbiology - Last 24 Hours (Table) 03/13/23 14:21 Blood Culture - Preliminary Blood 03/13/23 14:21 Blood Culture - Preliminary Blood 03/14/23 17:06 Urine Culture - Final Urine,Voided Assessment and Plan (1) Fever Current Visit: Yes Status: Acute Priority: High Code(s): R50.9 - FEVER, UNSPECIFIED SNOMED Code(s): 102753882 Plan: 1patient present to the hospital with weakness and fever in this patient who do have a history of mantle cell lymphoma with a recent first chemotherapy on 03/04/2023 presented to hospital with weakness confusion and a fever, patient initial work-up with a negative UA chest x-ray lactic acid was normal CT abdominal pelvis did shows abnormality to the right upper quadrant and ventral hernia, with concern for fever possible related to his lymphoma to be the likely etiology underlying infection less likely but nontender excluded 2the patient CRP is 13.5 however procalcitonin is 0.16 cultures are currently pending. 3patient seemed to have shown some improvement as for his fever is concerned and will continue patient on vancomycin and cefepime while waiting for the culture to finalize and monitor clinical course closely Dictation was produced using [employer] dictation software. please excuse any grammatical, word or spelling errors.
--- NOTE | 2023-03-17 13:22 | P.PN ---
Subjective Progress Note Date: 03/17/23 Principal diagnosis: Fever Patient is a 67-year-old male with a past medical history infection for mental cell lymphoma, recently started on chemotherapy presenting to the hospital with fever with initial negative work-up. Patient did have EGD on 03/16/2023 no active source of bleeding On today's evaluation that is 03/17/2023, the patient continues to be afebrile the patient is breathing comfortably on room air, the patient denies chest pain, shortness of breath or cough, patient denies abdominal pain, no nausea/vomiting and no diarrhea , currently undergoing bowel prep for colonoscopy Patient did have white count of 5.4 hemoglobin of 8.5 as of yesterday no lab draws today CRP is 13.5 Pro-Allen 0.16 cultures are currently pending Objective - Vital Signs Vital signs: Vital Signs Temp 98.9 F 03/17/23 12:30 Pulse 66 03/17/23 12:30 Resp 18 03/17/23 12:30 BP 128/68 03/17/23 12:30 Pulse Ox 95 03/17/23 12:30 FiO2 Intake & Output 03/16/23 03/17/23 03/17/23 18:59 06:59 18:59 Intake Total 200 708 Balance 200 708 Intake: IV 200 Oral 708 Other: Voiding Method Toilet Toilet Toilet Urinal Urinal Urinal # Voids 2 2 - Exam GENERAL DESCRIPTION: Elderly male lying in bed in no distress RESPIRATORY SYSTEM: Unlabored breathing , decreased breath sounds at bases HEART: S1 S2 regular rate and rhythm ,no loud murmurs ABDOMEN: Soft , no tenderness EXTREMITIES: No edema feet - Labs CBC & Chem 7: 03/16/23 05:32 03/17/23 08:51 Labs: Abnormal Lab Results - Last 24 Hours (Table) 03/17/23 Range/Units 08:51 Creatinine 0.44 L (0.66-1.25) mg/dL Microbiology - Last 24 Hours (Table) 03/13/23 14:21 Blood Culture - Preliminary Blood 03/13/23 14:21 Blood Culture - Preliminary Blood 03/15/23 11:35 Stool Culture - Preliminary Stool Yeast Assessment and Plan (1) Fever Current Visit: Yes Status: Acute Priority: High Code(s): R50.9 - FEVER, UNSPECIFIED SNOMED Code(s): 882992727 Plan: 1patient present to the hospital with weakness and fever in this patient who do have a history of mantle cell lymphoma with a recent first chemotherapy on 03/04/2023 presented to hospital with weakness confusion and a fever, patient initial work-up with a negative UA chest x-ray lactic acid was normal CT abdominal pelvis did shows abnormality to the right upper quadrant and ventral hernia, with concern for fever possible related to his lymphoma to be the likely etiology underlying infection less likely but not entirely excluded 2the patient CRP is 13.5 however procalcitonin is 0.16 cultures are currently pending. 3patient seemed to have shown some improvement and workup is currently in progress, will continue patient on vancomycin and cefepime and monitor clinical course closely Dictation was produced using [employer] dictation software. please excuse any grammatical, word or spelling errors. Time with Patient: Less than 30
--- NOTE | 2023-03-17 14:34 | P.PN ---
Subjective Progress Note Date: 03/17/23 Principal diagnosis: Fever, confusion. On treatment for mantle cell lymphoma In follow-up today patient's is at the bedside, MAXIMUM TEMPERATURE overnight 100.5F, MRI of the brain, showing some white matter changes but, no suspicions for lymphoma. Patient is currently prepping for colonoscopy. He denies nausea, shortness of breath, he is able to change positions and ambulate without any unusual dizziness, he feels his mentation is back to baseline. Objective - Vital Signs Vital signs: Vital Signs Temp 98.9 F 03/17/23 12:30 Pulse 66 03/17/23 12:30 Resp 18 03/17/23 12:30 BP 128/68 03/17/23 12:30 Pulse Ox 95 03/17/23 12:30 FiO2 Intake & Output 03/16/23 03/17/23 03/17/23 18:59 06:59 18:59 Intake Total 200 708 Balance 200 708 Intake: IV 200 Oral 708 Other: Voiding Method Toilet Toilet Toilet Urinal Urinal Urinal # Voids 2 2 - Constitutional General appearance: Present: average body habitus, cooperative, no acute distress - EENT Eyes: Present: anicteric sclerae, EOMI ENT: Present: hearing grossly normal - Respiratory Details: Respirations even and unlabored at rest - Cardiovascular Details: Skin warm and dry to the touch - Peripheral edema leg Peripheral Edema: bilateral: None - Integumentary Integumentary: Present: normal - Neurologic Neurologic: Present: CNII-XII intact - Musculoskeletal Musculoskeletal: Present: strength equal bilaterally - Psychiatric Psychiatric: Present: A&O x's 3, appropriate affect, intact judgment & insight - Labs CBC & Chem 7: 03/16/23 05:32 03/17/23 08:51 Labs: Abnormal Lab Results - Last 24 Hours (Table) 03/17/23 Range/Units 08:51 Creatinine 0.44 L (0.66-1.25) mg/dL Microbiology - Last 24 Hours (Table) 03/13/23 14:21 Blood Culture - Preliminary Blood 03/13/23 14:21 Blood Culture - Preliminary Blood 03/15/23 11:35 Stool Culture - Preliminary Stool Yeast - Imaging and Cardiology MRI - head: report reviewed Assessment and Plan (1) Fever Current Visit: Yes Status: Acute Priority: High Code(s): R50.9 - FEVER, UNSPECIFIED SNOMED Code(s): 141539067 (2) Mantle cell lymphoma Current Visit: Yes Status: Acute Priority: High Code(s): C83.10 - MANTLE CELL LYMPHOMA, UNSPECIFIED SITE SNOMED Code(s): 147987965 (3) CLL (chronic lymphocytic leukemia) Current Visit: No Status: Chronic Priority: Medium Code(s): C91.10 - CHRONIC LYMPHOCYTIC LEUK OF B-CELL TYPE NOT ACHIEVE REMIS SNOMED Code(s): 90625000 (4) Anemia Current Visit: Yes Status: Acute Priority: Medium Code(s): D64.9 - ANEMIA, UNSPECIFIED SNOMED Code(s): 993971664 Plan: Fever -Temp 100.5 Fahrenheit overnight -Pancultures unremarkable other then used in the stool. -Infectious Disease following Mantle cell lymphoma -Status post first cycle of Rituxan/Treanda -When patient seen in the office last week for treatment f/u, MRI of the brain was ordered due to patient being confused and falls-his VS were stable, no other symptoms. Confusion persisted so, brought him to the hospital. MRI brain, some white matter changes, associated with chronic small vessel disease, nothing to suggest lymphoma in the INTERNATIONAL MANAGER or CSF. Reviewed results with patient and . _Patient's symptoms have significantly improved since being on antibiotics. No further testing at this time. If patient neurological symptoms return or progress, may have to consider LP and CSF evaluation. Chemotherapy and disease related anemia -Patient is received a unit of blood since admission. Hemoglobin was stable yesterday. Labs tomorrow. -Previous anemia workup was consistent with anemia of inflammation. No iron or specific supplement at this time -With acute infection superimposed on disease and first cycle of treatment, counts will take a little longer to recover -Transfuse for hemoglobin less than 7 Surgery has seen patient for abdominal pain. EGD yesterday, stomach biopsies pending, patient is currently prepping for colonoscopy tomorrow. Dr. moralesests: I seen and examined patient, performed H&P, developed impression and plan of care. Discussed with dictator. Agree with documentation, dictated as a scribe.
--- NOTE | 2023-03-17 15:02 | P.PN ---
Subjective Progress Note Date: 03/17/23 CHIEF COMPLAINT: Abdominal pain HISTORY OF PRESENT ILLNESS: The patient is a 67 year old male who presented to the emergency room with right upper quadrant abdominal pain over 3 days. He has lymphoma. He is undergoing chemotherapy. Patient has had anemia. He has required 1 unit of blood during this admission. Status post EGD revealing GERD, gastritis and esophagitis. Hemoglobin has gone up from 6-8.5. Patient scheduled for colonoscopy tomorrow. He denies any abdominal pain. Denies any blood in his stools. PHYSICAL EXAM: VITAL SIGNS: Reviewed GENERAL: Well-developed in no acute distress. HEENT: No sclera icterus. Extraocular movements grossly intact. Moist buccal mucosa. Head is atraumatic, normocephalic. Hears conversational speech. No nasal drainage. NECK: Supple without lymphadenopathy. CHEST: Non-labored respirations and equal bilateral excursions. CARDIOVASCULAR: Palpable 2+ radial pulses. ABDOMEN: Soft. Nondistended. Nontender. MUSCULOSKELETAL: No clubbing or cyanosis. NEUROLOGIC: No focal or lateralizing signs. Cranial nerves II through XII grossly intact. PSYCH: Appropriate affect. Alert and oriented to person, place and time. SKIN: Well perfused. Good skin turgor. ASSESSMENT: 1. Abdominal pain, right upper quadrant 2. Incisional hernia 3. Intra-abdominal mass 4. Chronic lymphocytic leukemia 5. Rheumatoid arthritis 6. Chronic obstructive pulmonary disease 7. Anemia 8. History of splenectomy 9. Acute blood loss anemia 10. EGD revealing GERD, gastritis and esophagitis PLAN: -Patient scheduled for colonoscopy tomorrow, 03/18/[address] Zheng -Bowel prep today -Clear liquid diet today -Nothing by mouth after midnight -Continue to monitor hemoglobin Physician District Manager note has been reviewed by physician. Signing provider agrees with the documented findings, assessment, and plan of care. Objective - Vital Signs Vital signs: Vital Signs Temp 98.9 F 03/17/23 12:30 Pulse 66 03/17/23 12:30 Resp 18 03/17/23 12:30 BP 128/68 03/17/23 12:30 Pulse Ox 95 03/17/23 12:30 FiO2 Intake & Output 03/16/23 03/17/23 03/17/23 18:59 06:59 18:59 Intake Total 200 708 Balance 200 708 Intake: IV 200 Oral 708 Other: Voiding Method Toilet Toilet Toilet Urinal Urinal Urinal # Voids 2 2 - Labs CBC & Chem 7: 03/16/23 05:32 03/17/23 08:51 Labs: Abnormal Lab Results - Last 24 Hours (Table) 03/17/23 Range/Units 08:51 Creatinine 0.44 L (0.66-1.25) mg/dL Microbiology - Last 24 Hours (Table) 03/13/23 14:21 Blood Culture - Preliminary Blood 03/13/23 14:21 Blood Culture - Preliminary Blood 03/15/23 11:35 Stool Culture - Preliminary Stool Yeast
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
[2023-03-17] MEDS: ACETAMINOPHEN TAB 500 MG TAB PO PRN (21:43)
[2023-03-17] MEDS: MONTELUKAST 10 MG TAB PO SCH (21:43)
[2023-03-18] MEDS: SODIUM CHLORIDE 0.9% 1,000 ML IV SCH (04:13)
[2023-03-18] MEDS: CEFEPIME 2 GM in SODIUM CHLORIDE 0.9% 100 ML IVPB SCH ×2 (04:53→11:14)
[2023-03-18 07:04] LABS: Anisocytosis Slight; HCT 25.6 % (39.0-53.0); HGB 8.1 gm/dL (13.0-17.5); Hypochromasia Moderate; MCH 31.6 pg (25.0-35.0); MCHC 31.6 g/dL (31.0-37.0); MCV 100.1 fL (80.0-100.0); Macrocytosis Moderate; Mean Platelet Volume 9.5; Platelet Count 244 k/uL (150-450); Poikilocytosis Slight; RBC 2.56 m/uL (4.30-5.90); WBC 3.8 k/uL (3.8-10.6)
[2023-03-18 07:14] LABS: African American GFR (CKD) >90 (>60 ml/min/1.73 sqM); Anion Gap 5 mmol/L; Blood Urea Nitrogen 7 mg/dL (9-20); Carbon Dioxide 26 mmol/L (22-30); Chloride 107 mmol/L (98-107); Glucose 83 mg/dL (74-99); Non-African American GFR(CKD) >90 (>60 ml/min/1.73 sqM); Potassium 3.3 mmol/L (3.5-5.1); Sodium 138 mmol/L (137-145)
[2023-03-18] MEDS: ENOXAPARIN 40 MG/0.4 ML SYRINGE SQ SCH (07:22)
[2023-03-18] MEDS: allopurinoL 100 MG TAB PO SCH ×2 (07:23→09:01)
[2023-03-18] MEDS: CHOLECALCIFEROL 25 MCG (1000 IU) TABLET PO SCH (07:23)
[2023-03-18] MEDS: LACTULOSE 20 GM/30 ML CUP PO SCH (07:24)
[2023-03-18] MEDS: PANTOPRAZOLE 40 MG TABLET PO SCH (07:24)
[2023-03-18] MEDS: FOLIC ACID 1 MG TAB PO SCH (07:24)
[2023-03-18] MEDS: LORATADINE 10 MG TAB PO SCH (07:24)
[2023-03-18] MEDS: SYMBICORT 160-4.5 MCG INHALER INHALATION SCH (08:11)
[2023-03-18] MEDS ORDERED: POTASSIUM CHLORIDE ER 20 MEQ TAB.ER PO STA (08:27)
[2023-03-18] MEDS: PREGABALIN 100 MG CAP PO SCH (09:01)
[2023-03-18] MEDS: SERTRALINE 100 MG TAB PO SCH (09:01)
[2023-03-18 09:31] VITALS: RESP 16
[2023-03-18] MEDS ORDERED: PROPOFOL 10 MG/ML 20 ML VIAL IV ONE (09:49)
[2023-03-18] MEDS ORDERED: IV FLUID CONTINUATION 1,000 ML IV ONE (09:58)
--- NOTE | 2023-03-18 10:26 | P.PCN ---
Date of Procedure: 03/18/23 Description of Procedure: PREOPERATIVE DIAGNOSIS: Acute blood loss anemia status post transfusion Gastrointestinal bleeding POSTOPERATIVE DIAGNOSIS: Sigmoid diverticulosis OPERATION: Colonoscopy to the cecum, ileocecal valve and appendiceal orifice SURGEON: Raven Zheng MD. ANESTHESIA: MAC. INDICATIONS: The patient is a 67-year-old male who presents with acute blood loss anemia and gastrointestinal bleeding. Benefits and risks were described and informed consent was obtained. DESCRIPTION OF PROCEDURE: The patient had undergone milk of magnesia and lactulose Golytely prep 2 L. The patient had been brought into the operating room and laid in the left lateral decubitus position. After adequate intravenous sedation, the rectum was examined with 2% lidocaine jelly. No prolapsed internal hemorrhoids were found. The rectal tone was tight. An Olympus colonoscope was gently advanced to the cecum with clear visualization of the ileocecal valve including appendiceal orifice. The prep was good. Sigmoid diverticulosis was encountered without active bleeding. No active colonic bleeding was found. No intraluminal masses were identified within the colon. No colonic polyps were found. No evidence of focal colitis was found. Retroflexion of the scope demonstrated grade 2 internal hemorrhoids with recent inflammation. The colon was desufflated. The patient had tolerated the procedure well. Withdrawal time was over 6 minutes. FINDINGS: Aronchick preparation quality scale 1+ (1-5) Internal hemorrhoids, grade 2 No thrombosed hemorrhoid identified. No arteriovenous malformations. No adenomatous polyps. No focal colitis. Sigmoid diverticulosis RECOMMENDATIONS: 1. Diet as tolerated 2. Recommend 25-30 g of fiber for sigmoid diverticulosis Plan - Discharge Summary Discharge Rx Participant: No New Discharge Prescriptions: No Action Sertraline HCl [Zoloft] 100 mg PO DAILY Omeprazole 20 mg PO DAILY Budesonide/Formoterol Fumarate [Symbicort 160-4.5 Mcg Inhaler] 2 puff INHALATION RT-BID Pregabalin [Lyrica] 200 mg PO BID Acetaminophen Tab [Tylenol] 500 mg PO Q6H PRN PRN Reason: Pain Or Fever > 100.5 Fluticasone Nasal [place] [Flonase Nasal [place]] 1 spray EA NOSTRIL DAILY PRN PRN Reason: Congestion Montelukast [Singulair] 10 mg PO HS allopurinoL [Zyloprim] 200 mg PO DAILY #60 tab Guaifen/Phenyleph/Acetaminophn [Tylenol Sinus Severe Caplet] 1 tab PO Q6H PRN PRN Reason: Sinus Symptoms Turmeric Root Extract [Turmeric] 500 mg PO DAILY Folic Acid 1 mg PO DAILY Albuterol Sulfate [Ventolin HFA] 2 puff INHALATION RT-Q6H PRN PRN Reason: Shortness Of Breath Fexofenadine HCl 180 mg PO DAILY [place]-3/Dha/Epa/Fish Oil [Fish Oil 1,000 mg Softgel] 1 cap PO DAILY Multivit,Calc,Min/FA/K1/Lycop [One-A-Day Men's Complete Tab] 1 tab PO DAILY Cholecalciferol [Vitamin D3 (25 Mcg = 1000 Iu)] 50 mcg PO DAILY Ondansetron [Zofran] 4 mg PO Q4H PRN PRN Reason: Nausea Discharge Medication List Omeprazole 20 mg PO DAILY 09/17/18 [History] Sertraline HCl [Zoloft] 100 mg PO DAILY 09/17/18 [History] Acetaminophen Tab [Tylenol] 500 mg PO Q6H PRN 02/11/21 [History] Albuterol Sulfate [Ventolin HFA] 2 puff INHALATION RT-Q6H PRN 02/11/21 [History] Budesonide/Formoterol Fumarate [Symbicort 160-4.5 Mcg Inhaler] 2 puff INHALATION RT-BID 02/11/21 [History] Fexofenadine HCl 180 mg PO DAILY 02/11/21 [History] Pregabalin [Lyrica] 200 mg PO BID 02/11/21 [History] Fluticasone Nasal [place] [Flonase Nasal [place]] 1 spray EA NOSTRIL DAILY PRN 01/03/22 [History] Multivit,Calc,Min/FA/K1/Lycop [One-A-Day Men's Complete Tab] 1 tab PO DAILY 01/03/22 [History] [place]-3/Dha/Epa/Fish Oil [Fish Oil 1,000 mg Softgel] 1 cap PO DAILY 01/03/22 [History] Cholecalciferol [Vitamin D3 (25 Mcg = 1000 Iu)] 50 mcg PO DAILY 01/13/23 [History] Montelukast [Singulair] 10 mg PO HS 01/13/23 [History] allopurinoL [Zyloprim] 200 mg PO DAILY #60 tab 01/20/23 [Rx] Guaifen/Phenyleph/Acetaminophn [Tylenol Sinus Severe Caplet] 1 tab PO Q6H PRN 02/27/23 [History] Turmeric Root Extract [Turmeric] 500 mg PO DAILY 02/27/23 [History] Folic Acid 1 mg PO DAILY 03/13/23 [History] Ondansetron [Zofran] 4 mg PO Q4H PRN 03/13/23 [History] Follow up Appointment(s)/Referral(s): Jeramy Aaron MD [Primary Care Provider] - 1-2 days Glenn Alfredo MD [STAFF PHYSICIAN] - 03/25/23 1:45 pm
[2023-03-18 11:05] VITALS: TEMP 98.8
[2023-03-18 11:44] VITALS: BP 147/80; PULSE 69
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
--- NOTE | 2023-03-18 16:47 | P.PN ---
Subjective Progress Note Date: 03/18/23 Principal diagnosis: Fever, confusion. On treatment for mantle cell lymphoma In follow-up today patient's is at the bedside, no fever since the , MRI of the brain, showing some white matter changes but, no suspicions for lymphoma. EGD done, nothing pathological, colonoscopy done this am. He denies any c/o, he is eating and drinking, ambulating without any unusual dizziness, weakness. Objective - Vital Signs Vital signs: Vital Signs Temp 98.8 F 03/18/23 10:49 Pulse 69 03/18/23 11:17 Resp 16 03/18/23 10:49 BP 147/80 03/18/23 11:17 Pulse Ox 96 03/18/23 11:17 FiO2 Intake & Output 03/17/23 03/18/23 03/18/23 18:59 06:59 18:59 Intake Total 900 0 100 Balance 900 0 100 Intake: IV 100 Intake, IV Titration 900 Amount Sodium Chloride 0.9% 1, 900 000 ml @ 75 mls/hr IV . [id number] [facility] Rx#:[id number] Oral 0 Other: Voiding Method Toilet Toilet Urinal Urinal # Voids 3 # Bowel Movements 5 - Constitutional General appearance: Present: average body habitus, cooperative, no acute distress - EENT Eyes: Present: anicteric sclerae, EOMI ENT: Present: hearing grossly normal - Respiratory Details: Respirations even and unlabored at rest - Peripheral edema leg Peripheral Edema: bilateral: None - Neurologic Neurologic: Present: CNII-XII intact - Musculoskeletal Musculoskeletal: Present: strength equal bilaterally - Psychiatric Psychiatric: Present: A&O x's 3, appropriate affect, intact judgment & insight - Labs CBC & Chem 7: 03/18/23 06:17 03/18/23 06:17 Labs: Abnormal Lab Results - Last 24 Hours (Table) 03/17/23 03/18/23 03/18/23 Range/Units 08:52 06:17 06:17 RBC 2.56 L (4.30-5.90) m/uL Hgb 8.1 L (13.0-17.5) gm/dL Hct 25.6 L (39.0-53.0) % MCV 100.1 H (80.0-100.0) fL RDW 19.0 H (11.5-15.5) % Potassium (3.5-5.1) mmol/L BUN (9-20) mg/dL Creatinine (0.66-1.25) mg/dL Calcium (8.4-10.2) mg/dL Procalcitonin 0.17 H 0.14 H (0.02-0.09) ng/mL 03/18/23 Range/Units 06:17 RBC (4.30-5.90) m/uL Hgb (13.0-17.5) gm/dL Hct (39.0-53.0) % MCV (80.0-100.0) fL RDW (11.5-15.5) % Potassium 3.3 L (3.5-5.1) mmol/L BUN 7 L (9-20) mg/dL Creatinine 0.53 L (0.66-1.25) mg/dL Calcium 8.0 L (8.4-10.2) mg/dL Procalcitonin (0.02-0.09) ng/mL Microbiology - Last 24 Hours (Table) 03/15/23 11:35 Stool Culture - Preliminary Stool Lisa albicans Assessment and Plan (1) Fever Status: Acute Priority: High Code(s): R50.9 - FEVER, UNSPECIFIED SNOMED Code(s): 609530981 (2) Mantle cell lymphoma Status: Acute Priority: High Code(s): C83.10 - MANTLE CELL LYMPHOMA, UNSPECIFIED SITE SNOMED Code(s): 118419856 (3) CLL (chronic lymphocytic leukemia) Status: Chronic Priority: Medium Code(s): C91.10 - CHRONIC LYMPHOCYTIC LEUK OF B-CELL TYPE NOT ACHIEVE REMIS SNOMED Code(s): 81336861 (4) Anemia Status: Acute Priority: Medium Code(s): D64.9 - ANEMIA, UNSPECIFIED SNOMED Code(s): 231533053 Plan: Fever-Resolved -Pancultures unremarkable other then used in the stool. -Infectious Disease following, will give final abx recommendations Mantle cell lymphoma -Status post first cycle of Rituxan/Treanda -Patient's symptoms have significantly improved with antibiotics. No further testing at this time. If patient neurological symptoms return or progress, may have to consider LP and CSF evaluation. -Follow-up with Primary Oncologist prior to resuming any therapy-appt in chart Chemotherapy and disease related anemia -Patient is received a unit of blood since admission. Hemoglobin Stable. -Previous anemia workup was consistent with anemia of inflammation. No iron or specific supplement at this time -With acute infection superimposed on disease and first cycle of treatment, counts will take a little longer to recover
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
== END 2023-03-18 15:08 | disposition home or self-care (01) | DRG 841 ==
LOC: EC 13:33 → 5NMEDONC 17:02 → OBSVTOIN 03-14 19:51
PROVIDERS: ADMIT Hospitalist; ATTEND Hospitalist
PROC: 30233N1 Transfusion of Nonautologous Red Blood Cells into Peripheral Vein, Percutaneous Approach (ICD-10-PCS; 2023-03-16)
PROC: 0DB98ZX Excision of Duodenum, Via Natural or Artificial Opening Endoscopic, Diagnostic (ICD-10-PCS; principal; 2023-03-16 08:10)
PROC: 0DB58ZX Excision of Esophagus, Via Natural or Artificial Opening Endoscopic, Diagnostic (ICD-10-PCS; principal; 2023-03-16 08:10)
PROC: 0DB78ZX Excision of Stomach, Pylorus, Via Natural or Artificial Opening Endoscopic, Diagnostic (ICD-10-PCS; principal; 2023-03-16 08:10)
PROC: 0DJD8ZZ Inspection of Lower Intestinal Tract, Via Natural or Artificial Opening Endoscopic (ICD-10-PCS; 2023-03-18)
DX: C83.10 Mantle cell lymphoma, unspecified site (principal); D84.9 Immunodeficiency, unspecified; K22.10 Ulcer of esophagus without bleeding; R50.9 Fever, unspecified; D63.0 Anemia in neoplastic disease; M06.9 Rheumatoid arthritis, unspecified; K57.30 Diverticulosis of large intestine without perforation or abscess without bleeding; E78.5 Hyperlipidemia, unspecified; K44.9 Diaphragmatic hernia without obstruction or gangrene; K29.70 Gastritis, unspecified, without bleeding; K64.1 Second degree hemorrhoids; R29.6 Repeated falls; Z91.81 History of falling; J44.9 Chronic obstructive pulmonary disease, unspecified; Z79.51 Long term (current) use of inhaled steroids; Z79.899 Other long term (current) drug therapy; Z86.010 Personal history of colon polyps; Z86.19 Personal history of other infectious and parasitic diseases; Z20.822 Contact with and (suspected) exposure to COVID-19; R63.4 Abnormal weight loss; Z68.23 Body mass index [BMI] 23.0-23.9, adult; Z87.01 Personal history of pneumonia (recurrent); Z87.891 Personal history of nicotine dependence; Z90.81 Acquired absence of spleen; Z28.311 Partially vaccinated for COVID-19
CPT/HCPCS: 36415; 43239; 45378; 70553; 71046; 74177; 80048; 80053; 80202; 81003; 82565; 83010; 83605; 83615; 83735; 84100; 84145; 84484; 85025; 85027; 85045; 85610; 85730; 86140; 86850; 86900; 86901; 86920; 87040; 87045; 87046; 87070; 87086; 87636; 88305; 93005; 94640; 94760; 96361; 96365; 96366; 96367; 96372; 99285

== ENCOUNTER → 2023-07-17 | Outpatient (CLI) | payer MEDICARE, BC ==
--- NOTE | 2023-07-17 18:18 | XR ---
EXAMINATION TYPE: XR chest 2V DATE OF EXAM: 07/17/2023 COMPARISON: 03/13/2023 HISTORY: 68-year-old male C83.10 MANTLE CELL LYMPHOMA, UNSPECIFIED SITE TECHNIQUE: Frontal and lateral views FINDINGS: The cardiomediastinal silhouette, aorta, and pulmonary vasculature are within normal limits. Mild int erstitial prominence is unchanged. Lungs and pleural spaces are clear.-Lower thoracic spine. Surgical clips below the GE junction. IMPRESSION: Chronic changes. No acute cardiopulmonary process.
== END | disposition home or self-care (01) ==
LOC: RADXRMAIN 11:19
PROVIDERS: ATTEND Internal Medicine Hematology & Oncology
DX: C83.10 Mantle cell lymphoma, unspecified site (principal); R06.02 Shortness of breath; E78.5 Hyperlipidemia, unspecified; B02.9 Zoster without complications
CPT/HCPCS: 71046

== ENCOUNTER 2023-07-26 17:57 | Emergency (ER) | payer MEDICARE, BC ==
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
[2023-07-26] MEDS: ACETAMINOPHEN TAB 500 MG TAB PO STA (18:31)
[2023-07-26] MEDS: SODIUM CHLORIDE 0.9% 1,000 ML IV STA (18:50)
[2023-07-26 19:13] LABS: ALT 17 U/L (4-49); AST 23 U/L (17-59); African American GFR (CKD) >90 (>60 ml/min/1.73 sqM); Albumin 3.8 g/dL (3.5-5.0); Alkaline Phosphatase 130 U/L (38-126); Anion Gap 6 mmol/L; Blood Urea Nitrogen 15 mg/dL (9-20); Calcium 8.8 mg/dL (8.4-10.2); Carbon Dioxide 29 mmol/L (22-30); Chloride 103 mmol/L (98-107); Glucose 109 mg/dL (74-99); Magnesium 1.5 mg/dL (1.6-2.3); Non-African American GFR(CKD) >90 (>60 ml/min/1.73 sqM); Potassium 3.5 mmol/L (3.5-5.1); Sodium 138 mmol/L (137-145); Total Bilirubin 0.7 mg/dL (0.2-1.3); Total Protein 5.8 g/dL (6.3-8.2)
[2023-07-26 19:16] LABS: Basophils % (A) 0 %; Eosinophils # (A) 0.2 k/uL (0-0.7); Eosinophils % (A) 1 %; HCT 39.1 % (39.0-53.0); HGB 13.6 gm/dL (13.0-17.5); Lymphocytes # (A) 0.1 k/uL (1.0-4.8); Lymphocytes % (A) 0 %; MCH 33.4 pg (25.0-35.0); MCHC 34.9 g/dL (31.0-37.0); Mean Platelet Volume 9.9; Monocytes # (A) 1.3 k/uL (0-1.0); Monocytes % (A) 3 %; Neutrophils # (A) 35.3 k/uL (1.3-7.7); Neutrophils % (A) 95 %; Platelet Count 135 k/uL (150-450); RBC 4.08 m/uL (4.30-5.90); RDW 14.9 % (11.5-15.5); WBC 37.2 k/uL (3.8-10.6)
[2023-07-26 19:20] LABS: Partial Thromboplastin Time 25.5 sec (22.0-30.0); Prothrombin Time 10.6 sec (10.0-12.5)
--- NOTE | 2023-07-26 19:27 | XR ---
EXAMINATION TYPE: XR chest 2V DATE OF EXAM: 07/26/2023 6:57 PM CLINICAL INDICATION:Male, 68 years old with history of cough; COMPARISON: Chest radiographs from 07/17/2023. TECHNIQUE: XR chest 2V Frontal and lateral views of the chest. FINDINGS: Lungs/Pleura: There is no evidence of pleural effusion, focal consolidation, or pneumothorax. Pulmonary vascularity: Unremarkable. Heart/mediastinum: Cardiomediastinal silhouette is unremarkable. Musculoskeletal: No acute osseous pathology. Other findings: None IMPRESSION: No acute cardiopulmonary disease/process.
[2023-07-26 21:26] VITALS: BP 117/71; PULSE 77; RESP 19; TEMP 98.4
== END 2023-07-26 21:04 | disposition home or self-care (01) ==
LOC: EC 17:57
DX: U07.1 COVID-19 (principal); J44.9 Chronic obstructive pulmonary disease, unspecified; K21.9 Gastro-esophageal reflux disease without esophagitis; Z87.891 Personal history of nicotine dependence; Z79.51 Long term (current) use of inhaled steroids
CPT/HCPCS: 36415; 71046; 80053; 83605; 83735; 85025; 85610; 85730; 87040; 87636; 93005; 96360; 99284

== ENCOUNTER 2024-04-04 17:27 | Emergency (ER) | payer MEDICARE, BC ==
[2024-04-04] MEDS: IBUPROFEN 800 MG TAB PO STA (18:39)
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
[2024-04-04 19:49] LABS: Basophils % (A) 0 %; Eosinophils # (A) 0.1 k/uL (0-0.7); Eosinophils % (A) 1 %; HGB 14.3 gm/dL (13.0-17.5); Lymphocytes # (A) 0.6 k/uL (1.0-4.8); Lymphocytes % (A) 5 %; MCH 32.6 pg (25.0-35.0); MCHC 33.3 g/dL (31.0-37.0); Mean Platelet Volume 8.8; Monocytes # (A) 1.1 k/uL (0-1.0); Monocytes % (A) 10 %; Neutrophils # (A) 8.9 k/uL (1.3-7.7); Neutrophils % (A) 82 %; Platelet Count 206 k/uL (150-450); RBC 4.38 m/uL (4.30-5.90); RDW 14.2 % (11.5-15.5); WBC 10.9 k/uL (3.8-10.6)
[2024-04-04 19:53] LABS: ALT 20 U/L (4-49); AST 26 U/L (17-59); African American GFR (CKD) >90 (>60 ml/min/1.73 sqM); Albumin 4.4 g/dL (3.5-5.0); Alkaline Phosphatase 69 U/L (38-126); Anion Gap 12 mmol/L; Blood Urea Nitrogen 14 mg/dL (9-20); Calcium 9.3 mg/dL (8.4-10.2); Carbon Dioxide 24 mmol/L (22-30); Chloride 102 mmol/L (98-107); Glucose 110 mg/dL (74-99); Non-African American GFR(CKD) 87 (>60 ml/min/1.73 sqM); Potassium 4.1 mmol/L (3.5-5.1); Sodium 138 mmol/L (137-145); Total Bilirubin 0.5 mg/dL (0.2-1.3); Total Protein 6.8 g/dL (6.3-8.2)
[2024-04-04 21:09] VITALS: BP 90/51; PULSE 64; RESP 16; TEMP 98.8
== END 2024-04-04 21:06 | disposition home or self-care (01) ==
LOC: EC 17:27
DX: U07.1 COVID-19 (principal); Z87.891 Personal history of nicotine dependence
CPT/HCPCS: 36415; 80053; 83605; 85025; 87636; 93005; 99283

== ENCOUNTER → 2024-04-04 | Outpatient (CLI) | payer MEDICARE, BC ==
--- NOTE | 2024-04-04 14:40 | XR ---
EXAMINATION TYPE: XR chest 2V DATE OF EXAM: 04/04/2024 1:25 PM COMPARISON: 07/26/2023 CLINICAL INDICATION: Male, 69 years old with history of R06.02 SHORTNESS OF BREATH, TECHNIQUE: XR chest 2V view(s) obtained. FINDINGS: The heart size is normal. The pulmonary vasculature is normal. The lungs are clear. IMPRESSION: 1. No acute pulmonary process. [facility], , 04/04/2024 2:37 PM
== END | disposition home or self-care (01) ==
LOC: RADXRMAIN 13:09
PROVIDERS: ATTEND Student in an Organized Health Care Education/Training Program
DX: R06.02 Shortness of breath (principal)
CPT/HCPCS: 71046

== ENCOUNTER 2024-05-22 08:54 | Emergency (ER) | payer MEDICARE, BC ==
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
[2024-05-22 09:48] LABS: Basophils % (A) 0 %; Eosinophils # (A) 0.1 k/uL (0-0.7); Eosinophils % (A) 1 %; HCT 48.3 % (39.0-53.0); HGB 16.5 gm/dL (13.0-17.5); Lymphocytes # (A) 0.4 k/uL (1.0-4.8); Lymphocytes % (A) 5 %; MCH 32.8 pg (25.0-35.0); MCHC 34.1 g/dL (31.0-37.0); MCV 96.3 fL (80.0-100.0); Mean Platelet Volume 8.7; Monocytes # (A) 0.5 k/uL (0-1.0); Monocytes % (A) 5 %; Neutrophils # (A) 7.5 k/uL (1.3-7.7); Neutrophils % (A) 88 %; Platelet Count 206 k/uL (150-450); RBC 5.02 m/uL (4.30-5.90); RDW 13.9 % (11.5-15.5); WBC 8.5 k/uL (3.8-10.6)
--- NOTE | 2024-05-22 09:50 | CT ---
EXAMINATION TYPE: CT brain wo con DATE OF EXAM: 05/22/2024 COMPARISON: None CLINICAL INDICATION: Male, 69 years old with history of BUITRAGO; PHH, HEADACHES, NAUSEA AND WEAKNESS CT DLP: 1143.6 mGycm Automated exposure control for dose reduction was used. Findings: The ventricles are markedly enlarged. The basal cisterns and sulci over the convexities are minimally enlarged. The findings suggest the presence of marked atrophy with a greater central component versu s hydrocephalus. There is no mass effect or shift of midline structures. No abnormal density is seen throughout the brain parenchyma. There is no acute intra or extra-axial hemorrhage. Posterior fossa is grossly normal. The intraorbital contents appear normal and symmetric. Paranasal sinuses and mastoid air cells are well aerated. IMPRESSION: Marked dilatation of the ventricles raising the question of marked hydrocephalus versus marked atroph y with a greater central component. Clinical correlation is recommended. There is no acute bleed or mass effect. [facility], Workstation: [email or web address] 05/22/2024 9:48 AM
[2024-05-22 09:52] LABS: Ionized Calcium 5.2 mg/dL (4.5-5.3)
--- NOTE | 2024-05-22 09:55 | XR ---
Chest, 2 view. HISTORY: Weakness COMPARISON: 04/04/2024 TECHNIQUE: PA and lateral views the chest are obtained. FINDINGS: The lungs are clear and there is no consolidative or interstitial opacity. There is no pleural effusion or pneumothorax. The heart, pulmonary vasculature, mediastinum and uri appear normal. The osseous structures are intact. IMPRESSION: No significant abnormality seen. No acute cardiopulmonary disease. [facility], Workstation: [email or web address] 05/22/2024 9:52 AM
[2024-05-22 10:00] LABS: ALT 22 U/L (4-49); African American GFR (CKD) >90 (>60 ml/min/1.73 sqM); Albumin 5.4 g/dL (3.5-5.0); Anion Gap 11 mmol/L; Blood Urea Nitrogen 17 mg/dL (9-20); Calcium 10.6 mg/dL (8.4-10.2); Carbon Dioxide 27 mmol/L (22-30); Chloride 102 mmol/L (98-107); Glucose 158 mg/dL (74-99); Non-African American GFR(CKD) >90 (>60 ml/min/1.73 sqM); Sodium 140 mmol/L (137-145); Total Protein 8.1 g/dL (6.3-8.2)
[2024-05-22 10:03] LABS: AST 27 U/L (17-59); Magnesium 1.9 mg/dL (1.6-2.3); Potassium 4.9 mmol/L (3.5-5.1)
[2024-05-22 10:04] LABS: Alkaline Phosphatase 52 U/L (38-126)
[2024-05-22] MEDS: ONDANSETRON 4 MG/2 ML VIAL IVP STA (10:47)
[2024-05-22 11:08] VITALS: BP 147/97; PULSE 63; RESP 18; TEMP 97.6
== END 2024-05-22 11:17 | disposition home or self-care (01) ==
LOC: EC 08:54
DX: U07.1 COVID-19 (principal); C83.10 Mantle cell lymphoma, unspecified site; Z87.891 Personal history of nicotine dependence
CPT/HCPCS: 36415; 93005; 80053; 82330; 83605; 83735; 84443; 85025; 87636; 71046; 70450; 99284; 96374; J2405

== ENCOUNTER 2024-05-25 11:48 | Inpatient (IN) | payer MEDICARE, BC ==
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
--- NOTE | 2024-05-25 12:55 | CT ---
EXAMINATION TYPE: CT brain wo con CT DLP: 1196.4 mGycm, Automated exposure control for dose reduction was used. DATE OF EXAM: 05/25/2024 12:37 PM COMPARISON: CT brain 05/22/2024. CLINICAL INDICATION:Male, 69 years old with history of weakness, weakness, falls, Nausea and vomiting . TECHNIQUE: Brain: Axial CT images of the brain were obtained with coronal and sagittal reformats created and rev iewed. Contrast used: None. Oral contrast used: None. FINDINGS: Brain: Extra-axial spaces: No abnormal extra-axial fluid collections. Ventricular system: There is similar diffuse dilatation of the ventricles. Cerebral parenchyma: Cerebral atrophy. No acute intraparenchymal hemorrhage or mass effect. The perez -white junction is well differentiated. Cerebellum: Unremarkable. Mass effect: No evidence of midline shift. Intracranial vasculature: unremarkable Soft tissues: Normal. Calvarium/osseous structures: No depressed skull fracture. Paranasal sinuses and mastoid air cells: Mild scattered paranasal sinus disease. Visualized orbits: Orbital contents are intact. IMPRESSION: Redemonstrated similar diffuse hydrocephalus with no discrete obstructive process seen. No acute intr acranial hemorrhage or midline shift. Recommend correlation with clinical evaluation. [facility], , 05/25/2024 12:52 PM
[2024-05-25] MEDS: SODIUM CHLORIDE 0.9% 1,000 ML IV STA (13:59)
[2024-05-25 14:01] LABS: ALT 33 U/L (4-49); African American GFR (CKD) >90 (>60 ml/min/1.73 sqM); Anion Gap 9 mmol/L; Blood Urea Nitrogen 19 mg/dL (9-20); Calcium 10.1 mg/dL (8.4-10.2); Carbon Dioxide 31 mmol/L (22-30); Chloride 100 mmol/L (98-107); Glucose 123 mg/dL (74-99); Non-African American GFR(CKD) >90 (>60 ml/min/1.73 sqM); Sodium 140 mmol/L (137-145); Total Bilirubin 1.2 mg/dL (0.2-1.3)
[2024-05-25 14:05] LABS: AST 37 U/L (17-59); Albumin 5.4 g/dL (3.5-5.0); Alkaline Phosphatase 57 U/L (38-126); Magnesium 2.1 mg/dL (1.6-2.3); Potassium 4.5 mmol/L (3.5-5.1); Total Protein 8.2 g/dL (6.3-8.2)
[2024-05-25 14:10] LABS: Basophils % (A) 0 %; Eosinophils % (A) 0 %; HCT 50.7 % (39.0-53.0); Lymphocytes # (A) 0.4 k/uL (1.0-4.8); Lymphocytes % (A) 5 %; MCH 30.7 pg (25.0-35.0); MCHC 31.5 g/dL (31.0-37.0); MCV 97.4 fL (80.0-100.0); Mean Platelet Volume 8.1; Monocytes # (A) 0.7 k/uL (0-1.0); Monocytes % (A) 9 %; Neutrophils # (A) 6.8 k/uL (1.3-7.7); Neutrophils % (A) 84 %; Platelet Count 213 k/uL (150-450); RDW 13.1 % (11.5-15.5); WBC 8.1 k/uL (3.8-10.6)
[2024-05-25 14:21] LABS: Partial Thromboplastin Time 22.2 sec (22.0-30.0); Prothrombin Time 11.1 sec (10.0-12.5)
[2024-05-25] MEDS ORDERED: ACETAMINOPHEN TAB 325 MG TAB PO PRN (16:55)
[2024-05-25] MEDS ORDERED: NALOXONE 0.4 MG/ML 1 ML VIAL IV PRN (16:55)
[2024-05-25] MEDS: SODIUM CHLORIDE 0.9% 1,000 ML IV SCH (18:33)
[2024-05-25] MEDS: TAMSULOSIN 0.4 MG CAP.ER.24H PO STA (18:46)
[2024-05-25] MEDS: LIDOCAINE 2% URO-JET JELLY 5 ML KIT URETHRAL ONE (19:05)
[2024-05-25 19:18] LABS: Appearance,Urine Clear (Clear); Bilirubin,Urine Negative (Negative); Blood,Urine Negative (Negative); Color,Urine Yellow; Glucose,Urine (UA) Negative (Negative); Ketones,Urine Negative (Negative); Leukocyte Esterase,Urine Negative (Negative); Nitrite,Urine Negative (Negative); PH, Urine 5.5 (5.0-8.0); Protein,Urine Negative (Negative); Specific Gravity,Urine 1.026 (1.001-1.035); Urobilinogen,Urine <2.0 mg/dL (<2.0)
[2024-05-25] MEDS: ONDANSETRON 4 MG/2 ML VIAL IVP PRN (21:24)
[2024-05-25] MEDS: hydrALAZINE HCL 20 MG/ML 1 ML VIAL IVP PRN (22:54)
[2024-05-26] MEDS: HALOPERIDOL LACTATE 5 MG/ML 1 ML VIAL IM STA (02:09)
[2024-05-26] MEDS: TAMSULOSIN 0.4 MG CAP.ER.24H PO SCH (08:10)
[2024-05-26] MEDS ORDERED: ALBUTEROL NEBULIZED 2.5 MG/3 ML INHALATION PRN (08:46)
[2024-05-26] MEDS ORDERED: FLUTICASONE NASAL 50MCG/SPRAY 16GM BTL EA NOSTRIL PRN (08:46)
[2024-05-26] MEDS: SERTRALINE 100 MG TAB PO SCH (09:12)
[2024-05-26] MEDS: CHOLECALCIFEROL 25 MCG (1000 IU) TABLET PO SCH (09:13)
[2024-05-26] MEDS: LORATADINE 10 MG TAB PO SCH (09:13)
[2024-05-26] MEDS: FOLIC ACID 1 MG TAB PO SCH (09:13)
[2024-05-26] MEDS: PREGABALIN 100 MG CAP PO SCH (09:13)
[2024-05-26 09:44] LABS: HCT 50.9 % (39.0-53.0); HGB 17.2 gm/dL (13.0-17.5); MCH 32.9 pg (25.0-35.0); MCHC 33.8 g/dL (31.0-37.0); MCV 97.2 fL (80.0-100.0); Mean Platelet Volume 7.8; Platelet Count 203 k/uL (150-450); RBC 5.24 m/uL (4.30-5.90); WBC 13.5 k/uL (3.8-10.6)
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
[2024-05-26 09:56] LABS: African American GFR (CKD) >90 (>60 ml/min/1.73 sqM); Anion Gap 8 mmol/L; Blood Urea Nitrogen 17 mg/dL (9-20); Carbon Dioxide 29 mmol/L (22-30); Chloride 103 mmol/L (98-107); Glucose 149 mg/dL (74-99); Potassium 3.8 mmol/L (3.5-5.1); Sodium 140 mmol/L (137-145)
[2024-05-26 09:57] LABS: C Reactive Protein 1.1 mg/dL (<1.0); Calcium 10.5 mg/dL (8.4-10.2); LDH 182 U/L (120-246); Non-African American GFR(CKD) >90 (>60 ml/min/1.73 sqM)
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
[2024-05-26] MEDS: SYMBICORT 160-4.5 MCG INHALER INHALATION SCH (19:35)
[2024-05-26] MEDS: MONTELUKAST 10 MG TAB PO SCH (20:33)
[2024-05-26] MEDS ORDERED: ALBUTEROL HFA INHALER INHALATION PRN (22:49)
[2024-05-27 08:37] LABS: Basophils # (A) 0.02 X 10*3/uL (0.00-0.10); Basophils % (A) 0.2 %; Eosinophils # (A) 0.01 X 10*3/uL (0.04-0.35); Eosinophils % (A) 0.1 %; HCT 44.1 % (39.6-50.0); HGB 14.7 g/dL (13.0-17.0); Lymphocytes # (A) 0.41 X 10*3/uL (0.90-5.00); Lymphocytes % (A) 3.8 %; MCH 31.1 pg (27.0-32.0); MCHC 33.3 g/dL (32.0-37.0); MCV 93.4 FL (80.0-97.0); Mean Platelet Volume 10.7 FL (9.5-12.2); Monocytes # (A) 1.48 X 10*3/uL (0.20-1.00); Monocytes % (A) 13.6 %; NRBC Per 100 WBC 0 X 10*3/uL (0.00-0.01); Neutrophils # (A) 8.88 X 10*3/uL (1.80-7.70); Neutrophils % (A) 81.7 %; Platelet Count 215 X 10*3/uL (140-440); RBC 4.72 X 10*6/uL (4.40-5.60); WBC 10.87 X 10*3/uL (4.50-10.00)
[2024-05-27 08:53] LABS: BUN/Creat Ratio 19.38 Ratio (12.00-20.00); Blood Urea Nitrogen 15.5 mg/dL (9.0-27.0); Calcium 9.3 mg/dL (8.7-10.3); Carbon Dioxide 26.4 mmol/L (21.6-31.8); Chloride 105 mmol/L (96-109); Glucose 119 mg/dL (70-110); Potassium 3.7 mmol/L (3.5-5.5); Sodium 143 mmol/L (135-145)
--- NOTE | 2024-05-27 10:33 | P.PN ---
Subjective Progress Note Date: 05/26/24 Patient was seen for follow-up. Patient's was also present. Offers no new complaints. Continues to have problems with balance. Patient's believes that he is getting more confused. Objective - Vital Signs Vital signs: Vital Signs Temp 98.4 F 05/26/24 14:02 Pulse 64 05/26/24 14:02 Resp 17 05/26/24 14:02 BP 145/70 05/26/24 14:02 Pulse Ox 95 05/26/24 14:02 FiO2 Intake & Output 05/25/24 05/26/24 05/26/24 18:59 06:59 18:59 Intake Total 118 Output Total 1000 1400 Balance -1000 -1282 Weight 74.843 kg Intake: Oral 118 Output: Urine 1000 1400 Uretheral ([place]) 700 Other: Voiding Method Indwelling Catheter Indwelling Catheter # Bowel Movements 1 - Exam Clinically unchanged. Patient laying in the bed, appears pleasant. - Labs CBC & Chem 7: 05/27/24 03:36 05/27/24 03:36 Labs: Abnormal Lab Results - Last 24 Hours (Table) 05/26/24 05/26/24 Range/Units 09:31 09:31 WBC 13.5 H (3.8-10.6) k/uL Glucose 149 H (74-99) mg/dL Calcium 10.5 H (8.4-10.2) mg/dL C-Reactive Protein 1.1 H (<1.0) mg/dL Assessment and Plan Assessment: * 69-year-old male with couple year history of falling off and on, has got worse since he suffered from COVID on 05/16/2024. The frequency of falls have increased since COVID. CT of the head revealed possibility of mild to m oderate hydrocephalus, concerning for NPH. * History of mantle cell leukemia, currently gets immunotherapy every other month. * Rheumatoid arthritis * Hyperlipidemia * History of splenectomy * COPD Plan: * Awaiting MRI of the brain with and without contrast, follow-up on leukemia, evaluate for hydrocephalus. * Thereafter will perform large-volume spinal tap for possible NPH. Discussed with patient's , who consented for the LP. * Patient may need neurosurgical consultation for NPH. * B12 523, folate 26.9. Both normal. TSH is normal. * PT OT, evaluate gait. * Discussed with patient's .
--- NOTE | 2024-05-27 10:56 | MR ---
EXAMINATION TYPE: MR brain wo/w con DATE OF EXAM: 05/27/2024 10:34 AM COMPARISON: None. CLINICAL INDICATION: Male, 69 years old with history of Hydrocephalus, leukemia., Weakness, fatigue, hydrocephalus, leukemia. IV Contrast: 8 cc Gadobutrol (None if empty) TECHNIQUE: Multiplanar, multisequence images of the brain and brainstem is performed without and with IV contras t, utilizing 8 mL intravenous Gadobutrol . FINDINGS: Diffusion weighted images demonstrate no evidence of a recent infarct or other diffusion ab normality. There is moderate to severe central ventricular dilation. Likely representing component of degenerative change and hydrocephalus or normal pressure hydrocephalus. Findings are slightly progre ssed compared to prior exam. Increased signal in the periventricular white matter could represent transependymal edema or remote i schemic white matter changes. Areas of abnormal signal is seen within. Changes of chronic sinusitis. Orbits are symmetric. Midline structures demonstrate normal morphology. The craniocervical junction appears within normal limits. Post contrast images demonstrate no abnormal enhancement. The dural venous sinuses appear pa tent. IMPRESSION: 1. Moderate to severe central ventricular dilation. Correlate for normal pressure hydrocephalus or hy drocephalus superimposed on a background of degenerative changes. Findings are slightly progressed co mpared to prior exam. 2. Nonspecific areas of abnormal signal signal in the white matter most typical of remote microvascul ar ischemia. Transependymal edema in the differential diagnosis. 3. Mild chronic sinusitis. [facility], , 05/27/2024 10:53 AM
--- NOTE | 2024-05-27 11:45 | CA ---
Transthoracic Echo Report Name: Jesu Burger Age: 69 Gender: M : 1955 Exam Date: 05/27/2024 08:43 Exam Location: [facility] Ht (in): 70 Wt (lb): 165 Ordering Physician: Edgar Momin MD Attending/Referring Phys: [id number], Liliane Institutional Cook Alexandra Milian RDCS Procedure CPT: Indications: Falling, bradycardia Cardiac Hx: Technical Quality: Fair Contrast 1: Total Dose (mL): Contrast 2: Total Dose (mL): MEASUREMENTS (Male / Female) Normal Values 2D ECHO LV Diastolic Diameter PLAX 4.9 cm 4.2 - 5.9 / 3.9 - 5.3 cm LV Systolic Diameter PLAX 2.9 cm IVS Diastolic Thickness 0.9 cm 0.6 - 1.0 / 0.6 - 0.9 cm LVPW Diastolic Thickness 0.9 cm 0.6 - 1.0 / 0.6 - 0.9 cm LV Relative Wall Thickness 0.4 LVOT Diameter 2.1 cm LV Diastolic Volume MOD BP 119.4 cm??? 67 - 155 / 56 - 104 cm??? LV Systolic Volume MOD BP 37.3 cm??? 22 - 58 / 19 - 49 cm??? LV Ejection Fraction MOD BP 68.8 % >= 55 % LV Cardiac Index MOD BP 2643.2 cm???/min???m??? LV Diastolic Volume MOD 4C 116.4 cm??? LV Systolic Volume MOD 4C 36.1 cm??? LV Ejection Fraction MOD 4C 69.0 % LV Cardiac Index MOD 4C 2582.6 cm???/min???m??? LV Diastolic Length 4C 8.3 cm LV Systolic Length 4C 6.1 cm LV Diastolic Volume MOD 2C 115.7 cm??? LV Systolic Volume MOD 2C 35.9 cm??? LV Ejection Fraction MOD 2C 69.0 % LV Cardiac Index MOD 2C 2566.9 cm???/min???m??? LV Diastolic Length 2C 8.8 cm LV Systolic Length 2C 6.5 cm LA Volume 56.3 cm??? 18 - 58 / 22 - 52 cm??? LA Volume Index 29.2 cm???/m??? 16 - 28 cm???/m??? DOPPLER AV Peak Velocity 178.9 cm/s AV Peak Gradient 12.8 mmHg AV Mean Velocity 118.9 cm/s AV Mean Gradient 6.4 mmHg AV Velocity Time Integral 35.9 cm LVOT Peak Velocity 144.9 cm/s LVOT Peak Gradient 8.4 mmHg LVOT Velocity Time Integral 27.9 cm LVOT Stroke Volume 97.5 cm??? LVOT Stroke Volume Index 50.7 ml/m??? LVOT Cardiac Index 3137.8 cm???/min???m??? AV Area Cont Eq vti 2.7 cm??? AV Area Cont Eq pk 2.8 cm??? MV Area PHT 3.7 cm??? Mitral E Point Velocity 76.4 cm/s Mitral A Point Velocity 61.5 cm/s Mitral E to A Ratio 1.2 MV Deceleration Time 206.9 ms PV Peak Velocity 86.1 cm/s PV Peak Gradient 3.0 mmHg FINDINGS Left Ventricle Left ventricular ejection fraction is estimated at 60-65 %. Left ventricular cavity size normal. Left ventricular wall thickness normal. No obvious regional wall motion abnormalities. Right Ventricle Normal right ventricular size and function. Unable to estimate the right ventricular systolic pressure. Right Atrium Normal right atrial size. Left Atrium Mildly increased left atrial volume. Mitral Valve Structurally normal mitral valve. No mitral stenosis, regurgitation or prolapse. Aortic Valve Trileaflet aortic valve. Aortic valve sclerosis. No aortic valve stenosis or regurgitation. Tricuspid Valve Structurally normal tricuspid valve. No tricuspid stenosis, regurgitation or prolapse. Pulmonic Valve Pulmonic valve not well visualized. No pulmonic stenosis. No pulmonic regurgitation. Pericardium No pericardial effusion. Aorta Aortic annulus normal. CONCLUSIONS Normal LV function Previewed by: Dr. Gaston Bales MD (Electronically Signed) Final Date: 27 May 2024 11:45
[2024-05-27 14:12] VITALS: BP 150/85; PULSE 69; RESP 15; TEMP 97.6
--- NOTE | 2024-05-27 16:43 | P.PN ---
Subjective Progress Note Date: 05/27/24 Patient was seen for follow-up. Patient's was also present. Patient does admit to having headache about 5/10, involving the whole head. Patient continues to have some memory problems, forget that he has had MRI done earlier today. Denies any numbness or tingling in the feet. He does admit to having some low back pain related to laying in the bed. He had history of back surgery about 7 or 8 years ago. Denies any neck pain. Objective - Vital Signs Vital signs: Vital Signs Temp 98.3 F 05/27/24 07:00 Pulse 59 L 05/27/24 08:00 Resp 16 05/27/24 07:00 BP 174/85 05/27/24 07:00 Pulse Ox 93 L 05/27/24 07:00 FiO2 Intake & Output 05/26/24 05/27/24 05/27/24 18:59 06:59 18:59 Intake Total 118 236 Output Total 1400 650 Balance -1282 -650 236 Intake: Oral 118 236 Output: Urine 1400 650 Other: Voiding Method Indwelling Catheter Indwelling Catheter Indwelling Catheter # Bowel Movements 1 - Exam Clinically unchanged. Patient laying in the bed, appears pleasant. Muscle strength is normal. Visual iverson full. Face symmetric. - Labs CBC & Chem 7: 05/27/24 03:36 05/27/24 03:36 Labs: Abnormal Lab Results - Last 24 Hours (Table) 05/27/24 05/27/24 Range/Units 03:36 03:36 WBC 10.87 H (4.50-10.00) X 10*3/uL Immature Gran # 0.07 H (0.00-0.04) X 10*3/uL Neutrophils # 8.88 H (1.80-7.70) X 10*3/uL Lymphocytes # 0.41 L (0.90-5.00) X 10*3/uL Monocytes # 1.48 H (0.20-1.00) X 10*3/uL Eosinophils # 0.01 L (0.04-0.35) X 10*3/uL Glucose 119 H (70-110) mg/dL TSH 0.185 L (0.350-5.500) UIU/ML Assessment and Plan Assessment: * Hydrocephalus, possible NPH. MRI revealed moderate to severe central ventricular dilation, consistent with hydrocephalus. * History of mantle cell leukemia, currently gets immunotherapy every other carol h. * Rheumatoid arthritis * Hyperlipidemia * History of splenectomy * History of back surgery * COPD Plan: * MRI of the brain with and without contrast, performed 05/27/2024 revealed moderate to severe central ventricular dilation. Correlate for normal pressure hydrocephalus or hydrocephalus superimposed on a background of degenerative changes. Findings are slightly progressed compared to prior exam. Nonspecific areas of abnormal signal in the white matter, most typical of remote microvascular ischemia. Transependymal edema in the differential diagnosis. Mild chronic sinusitis. I personally reviewed MRI and agree with the findings. * We were considering large-volume spinal tap, but with the extent of hydrocephalus, large-volume tap will not be helpful. Patient definitely needs neurosurgical consultation during this hospitalization. Therefore it is better for patient to be evaluated by neurosurgery before lumbar puncture is performed. Patient may just need a ventriculoperitoneal shunt at this point. Discussed with family members and the primary team, and agreed to be transferred to higher level of care for neurosurgical consultation. * B12 523, folate 26.9. Both normal. TSH is normal. * PT OT, evaluate gait. * Discussed with patient's .
== END 2024-05-27 17:40 | disposition short-term general hospital (02) | DRG 57 ==
LOC: EC 11:48 → 6NMEDSUR 16:55 → OBSVTOIN 05-27 07:46
PROVIDERS: ADMIT Hospitalist; ATTEND Hospitalist
DX: G91.9 Hydrocephalus, unspecified (principal); C95.90 Leukemia, unspecified not having achieved remission; M06.9 Rheumatoid arthritis, unspecified; J44.9 Chronic obstructive pulmonary disease, unspecified; E78.5 Hyperlipidemia, unspecified; I10 Essential (primary) hypertension; R29.6 Repeated falls; Z91.81 History of falling; Z79.899 Other long term (current) drug therapy; Z87.891 Personal history of nicotine dependence; Z90.81 Acquired absence of spleen; Z87.19 Personal history of other diseases of the digestive system
CPT/HCPCS: 36415; 51702; 51798; 70450; 70553; 80048; 80053; 81003; 82607; 82746; 83605; 83615; 83735; 84439; 84443; 85025; 85027; 85610; 85730; 86140; 93005; 93306; 94640; 96361; 96374; 96375; 99285